=== PATIENT | female | born 1980 | race Caucasian/White ===

== ENCOUNTER 2018-12-15 23:51 | Observation (INO) | payer OTHER ==
[~2018-12-15] VITALS: Ht 162.6 cm; Wt 81.8 kg
[2018-12-16] VITALS (8 sets, daily range): BP systolic 99–126; BP diastolic 59–66
[2018-12-16] MEDS ORDERED: IBUP200C25 PO (00:06)
[2018-12-16] MEDS ORDERED: LASI20TA3 PO (00:07)
[2018-12-16] MEDS ORDERED: MORPHINE 4 MG/ML 1ML VIAL/SYRINGE (J2270) IV ONE ×3 (00:15→05:45)
[2018-12-16] MEDS ORDERED: ONDANSETRON 4MG/2ML VIAL (J2405) IV ONE (01:15)
[2018-12-16] MEDS ORDERED: fentaNYL 100 MCG/2 ML INJECTION (J3010) IV ONE ×2 (01:15→02:45)
[2018-12-16] MEDS ORDERED: PERC5TAB12 PO (03:50)
[2018-12-16] MEDS ORDERED: OXYCODONE/APAP 5MG/325MG(BULK FOR ED) 1 TABLET PO ONE (04:00)
[2018-12-16] MEDS ORDERED: PERCOCET 5MG/325MG TAB PO ONE (04:00)
[2018-12-16] MEDS ORDERED: MAALOX 30 ML SUSP *UDC PO PRN (05:45)
[2018-12-16] MEDS ORDERED: ACETAMINOPHEN TAB 650MG DOSE (2X325MG) PO PRN (05:45)
[2018-12-16] MEDS ORDERED: MOM 30ML SUSPENSION UDC PO PRN (05:45)
[2018-12-16] MEDS ORDERED: NS 1,000 ML IV SCH ×2 (06:05→08:25)
[2018-12-16] MEDS ORDERED: ONDANSETRON 4MG/2ML VIAL (J2405) IV PRN ×3 (06:15→11:15)
[2018-12-16] MEDS ORDERED: NALOXONE INJ 0.4 MG/1 ML VIAL (J2310) IV PRN ×2 (06:15→08:30)
[2018-12-16] MEDS ORDERED: diphenhydrAMINE INJ 50MG/ML VIAL (J1200) IV PRN ×2 (06:15→08:30)
[2018-12-16] MEDS ORDERED: NALBUPHINE HCL 10 MG/ML AMP (J2300) IV PRN ×2 (06:15→08:30)
[2018-12-16] MEDS ORDERED: MORPHINE 1MG/ML IN 0.9% NACL 100ML IV BAG IV PRN ×2 (06:15→08:30)
[2018-12-16] MEDS ORDERED: EPIDURAL/PCA KEYS XX PRN ×2 (06:15→08:30)
--- NOTE | 2018-12-16 06:21 | HPEPDOC ---
General Date of Admission Date of Service: Dec 16, 2018 Chief Complaint The patient is a 38-year-old female admitted with a reason for visit of Ankle Injury. Source: Patient Exam Limitations: No limitations Timing/Duration: Day(s) Severity: Severe History of Present Illness Ms. Domingo is a 38 years old woman who presented to Er after fall injury at home. She reports tripping on carpet and twisting her right ankle. Pain is excruciating; it got worse after going to bathroom in the ER. Pt is requiring repeated doses of IV morphine. X-ray showed closed right trimalleolar fracture. Splint was applied in ER; Ortho was consulted; Dr. Dominguez requested hospitalization for pain control. Vitals and mental status are good. Home Medications Scheduled Furosemide (Lasix) 20 Mg Tablet, 20 MG PO DAILY, (Reported) Ibuprofen (Ibuprofen) 200 Mg Capsule, 200 MG PO Q8H, (Reported) Scheduled PRN Oxycodone HCl/Acetaminophen (Percocet 5-325 mg Tablet) 1 Each Tablet, 1-2 TAB PO Q6H PRN for PAIN Allergies Coded Allergies: prednisone (Verified Allergy, Intermediate, hives/flushing, 12/15/18) Past Medical History Medical History Endometriosis Surgical History none Family History Significant Family History: No pertinent family hx Social History * Smoker: current smoker Alcohol: occationally Drugs: denies A-FIB/CHADSVASC A-FIB History Current/History of A-Fib/PAF?: No Review of Systems Constitutional: Denies: Chills, Fever Eyes: Denies: Vision change ENT: Denies: Head Aches, Ear Pain, Dysphagia Skin: Denies: Rash, Lesions Pulmonary: Denies: Dyspnea, Cough, Pleuritic Chest Pain Cardiovascular: Denies: Chest Pain, Palpitations, Orthopnea, Edema Gastrointestinal: Denies: Nausea, Vomiting, Abdominal Pain Genitourinary: Denies: Dysuria, Frequency Hematologic: Denies: Bruising Endocrine: Denies: Polydipsia, Polyphagia Musculoskeletal: Reports: Leg Pain; Denies: Neck Pain, Back Pain Neurological: Denies: Weakness, Numbness, Change in speech, Confusion, Seizures Psych: Reports: Mood Normal; Denies: Anxiety, Depression Physical Examination General Exam: Positive: Alert, Cooperative, No Acute Distress Eye Exam: Positive: PERRLA, Conjunctiva & lids normal ENT Exam: Positive: Atraumatic, Mucous membr. moist/pink Neck Exam: Positive: Supple; Negative: JVD Chest Exam: Positive: Clear to auscultation, Normal air movement Heart Exam: Positive: Rate Normal, Normal S1, Normal S2; Negative: Murmurs Abdomen Exam: Positive: Normal bowel sounds, Soft; Negative: Tenderness Extremity Exam: Positive: Other (toes are warm and pink; wrap on right foot and leg; no swelling above the wrap; sensation intact) Skin Exam: Positive: Nl turgor and temperature; Negative: Rash, Breakdown Neuro Exam: Positive: Normal Speech, Strength at 5/5 X4 ext, Normal Tone Psych Exam: Positive: Mental status NL, Mood NL; Negative: Anxiety Vital Signs Vital Signs Date Time Temp Pulse Resp B/P (MAP) Pulse Ox O2 Delivery O2 Flow Rate FiO2 12/16/18 05:54 89 20 117/72 (87) 96 Nasal Cannula 1.0 12/15/18 23:54 98.2 Laboratory Data Labs 24H Laboratory Tests 2 12/16/18 00:25: POC Beta HCG, Quantitative < 5.0 Assessment/Plan Right Trimalleolar Fracture, Closed - Keep on observation for pain control - 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
[2018-12-16] MEDS ORDERED: CYCLOBENZAPRINE 10 MG TAB PO ONE (06:45)
[2018-12-16] MEDS ORDERED: MIDAZOLAM INJ 2 MG/2 ML VIAL (J2250) As Ordered ONE (10:10)
[2018-12-16] MEDS ORDERED: fentaNYL 100 MCG/2 ML INJECTION (J3010) As Ordered ONE ×2 (10:10→10:39)
[2018-12-16] MEDS ORDERED: dexameTHASONE 4 MG/ML 1ML VIAL (J1100) As Ordered ONE (10:11)
[2018-12-16] MEDS ORDERED: LIDOCAINE 2% INJ 100 MG/5 ML SDV (FOR ANES.) As Ordered ONE (10:11)
[2018-12-16] MEDS ORDERED: ONDANSETRON 4MG/2ML VIAL (J2405) As Ordered ONE (10:11)
[2018-12-16] MEDS ORDERED: PROPOFOL 200 MG/20 ML VIAL As Ordered ONE ×2 (10:11→10:40)
--- NOTE | 2018-12-16 10:57 | REP ---
RIGHT ANKLE, FOUR VIEWS: Four views right ankle performed. There is a comminuted fracture of the distal fibula with some degree of posterior displacement and lateral angulation. There is a fracture of the medial malleolus with fairly significant lateral displacement. The talus is subluxed laterally with respect to the distal tibia. There also appears to be a posterior malleolar fracture. Electronically Signed by Hermann Kulkarni MD 12/16/2018 05:59 P
--- NOTE | 2018-12-16 11:00 | REP ---
RIGHT LOWER LEG AP AND LATERAL: AP and lateral views of her right lower leg performed. There is a comminuted fracture of the distal fibula with posterior displacement and lateral angulation. There is a fracture of the medial malleolus with significant lateral displacement. Ankle mortise is disrupted with subluxation of the talus laterally with respect to the distal end of the tibia. There is a nondisplaced fracture of the posterior malleolus. No fracture is seen more proximally. Electronically Signed by Hermann Kulkarni MD 12/16/2018 05:59 P
[2018-12-16] MEDS ORDERED: LR 1,000 ML IV SCH ×2 (11:15→11:30)
[2018-12-16] MEDS ORDERED: fentaNYL 100 MCG/2 ML INJECTION (J3010) IV PRN (11:15)
[2018-12-16] MEDS ORDERED: oxyCODONE 5MG TAB PO PRN (11:15)
[2018-12-16] MEDS ORDERED: PERCOCET 5MG/325MG TAB PO PRN (11:30)
[2018-12-16] MEDS: HEPARIN SOD (PORCINE) 5000 UNITS/ML VIAL SC SCH ×2 (12:16→20:26)
[2018-12-16] MEDS: PERCOCET 5MG/325MG TAB PO PRN ×3 (13:06→23:59)
--- NOTE | 2018-12-16 13:50 | HPE ---
DATE OF ADMISSION: 12/15/2018 CHIEF COMPLAINT: Right trimalleolar ankle fracture. HISTORY OF PRESENT ILLNESS: This is a 38-year-old female who was seen bed 10 [facility] emergency department (ED). She tripped on her carpet last night, twisted her ankle, sustained a trimalleolar fracture. I asked the physician programs assistant Heiid Mehta to place a splint on, elevate the leg. Post reduction radiographs showed relatively acceptable alignment, although still some lateral talar shaft given the fact that she did not do any molding on the cast around the splint. This patient's pain was under control. 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 No prior injury to the ankle. PAST MEDICAL HISTORY: Nil. MEDICATIONS: - Lasix 20 mg occasionally throughout the week of the summer months for lower leg swelling PAST SURGICAL HISTORY: Gallbladder. Appendectomy. Endometriosis. Gastric sleeve and gastric bypass. 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 She smokes 6-8 cigarettes a day. Does not consume any illicit drugs. Drinks 4-6 alcoholic beverages of vodka every week, especially when they are in camp. PHYSICAL EXAMINATION: Well-appearing 38-year-old female. She is in obvious pain and discomfort. Lower extremity has some moderate swelling and bruising about the ankle. She can wiggle her toes, dorsiflex and plantar flex the foot. Calf is soft. Normal sensation throughout the foot. Pulses are good in dorsalis pedis pulse and tibialis posterior. No pain of the knee or other lower extremity. Radiographs were reviewed of the right lower extremity. This shows the right ankle displaced, a trimalleolar fracture lateral to the talus. Post splinting radiographs appear to be about the same in terms amount of lateral talar shift. ASSESSMENT AND PLAN: This 78-year-old female with a right displaced trimalleolar fracture would benefit from closed reduction with conscious sedation or in the operating room. Unfortunately she has already been admitted, so it is it is not able to be performed in the emergency department. I have consented her for closed reduction and splinting right ankle fracture in the operating room theater with radiographic guidance. I explained pros, cons, risks, benefits of doing this and signed the consent form. I marked the right lower extremity and we will plan to do this today. She may be admitted back on the hospitalist service afterwards. She can be discharged home anytime whenever her pain is controlled, non-weightbearing with crutches and followup in clinic with orders for strict elevation to try and get the swelling down in preparation for open reduction, internal fixation.
--- NOTE | 2018-12-16 14:24 | RO ---
DATE OF PROCEDURE: 12/16/2018 PREOPERATIVE DIAGNOSIS: Right ankle fracture. POSTOPERATIVE DIAGNOSIS: Right ankle fracture. PLANNED PROCEDURE: Right ankle closed reduction and splinting. PROCEDURE PERFORMED: Right ankle closed reduction and splinting. SURGEON: Dr. Dominguez DUST BOX TENDER: Dr. Becerra TYPE OF ANESTHETIC: Sedation. OPERATIVE PREAMBLE: This 38-year-old female twisted her right ankle. She had a right ankle fracture that had lateral talar shift. Unfortunately, she failed closed reduction and splinting in the emergency department. She was already admitted to the hospitalist service, so we had to go ahead and perform a closed reduction in the operating theater. I talked about pros, cons, risks, benefits of going ahead with this and she signed consent form. I marked the right lower extremity. We proceeded to surgery. OPERATIVE REPORT: Patient was brought to operating theater. There placed supine on the operating room table. Intravenous (IV) sedation was induced by the anesthetic team. Hip and knee was both flexed to 90 degrees with holding of the toes by the events assistant. Cast padding was applied to the right lower extremity from the knee down to the toes. Three-sided plaster of Darlene splint was applied. Lateral molding was placed with one palm proximal medial and one palm distal over the fibula. Molding was achieved with intraoperative fluoroscopy taking AP, lateral and mortise to ensure that proper reduction was achieved and that the talus was well seated underneath the distal tibia. Splint was allowed to thoroughly harden and I overwrapped with two 6-inch Zach bandages. Final radiographs were taken and saved onto the radiographic computer system. Patient is transferred off the operating table and taken postanesthetic care unit in stable condition. Plan for the ayala is to elevate the leg, be non-weightbearing with crutches. CPG for crutch teaching. Be readmitted under the hospitalist service for adequate pain control. Be discharged home whenever they are safe to mobilize and the pain is controlled. Followup in the office this week to discuss surgery and to perform a swelling check. This can take 1-2 weeks of the swelling to come down but will likely benefit from open reduction, internal fixation given that it is bimalleolar and unstable.
[2018-12-16] MEDS ORDERED: CYCLOBENZAPRINE 10 MG TAB PO SCH (16:00)
[2018-12-16] MEDS: MORPHINE 4 MG/ML 1ML VIAL/SYRINGE (J2270) IV PRN ×3 (16:12→20:53)
[2018-12-17] VITALS: BP 99/55
[2018-12-17] MEDS: MORPHINE 4 MG/ML 1ML VIAL/SYRINGE (J2270) IV PRN ×5 (02:58→22:10)
[2018-12-17 04:30] VITALS: BP 97/55
[2018-12-17] MEDS: PERCOCET 5MG/325MG TAB PO PRN ×4 (05:50→18:16)
--- NOTE | 2018-12-17 06:56 | REP ---
RIGHT ANKLE, TWO VIEWS: Two views of the right ankle are performed. There is overlying splint. Comminuted fracture of the distal fibula is again noted with posterior displacement. Posterior malleolar fracture is again noted. Medial malleolar fracture with lateral displacement is again noted. There is again lateral subluxation of the talus with respect to the distal tibia. Electronically Signed by Hermann Kulkarni MD 12/17/2018 09:09 A
--- NOTE | 2018-12-17 06:58 | REP ---
C-ARM VIEWS, RIGHT ANKLE, AP and lateral C-ARM views of the right ankle are performed. There is a significant improvement in the alignment of the distal tibial and fibular fractures. Distal tibia is now well aligned with the talus. There is an overlying splint. 17 seconds of fluoroscopy time was utilized. Electronically Signed by Hermann Kulkarni MD 12/17/2018 09:09 A
[2018-12-17] MEDS ORDERED: PERC5TAB12 PO ×2 (07:57→08:08)
[2018-12-17] MEDS ORDERED: ASPI81TA21 PO (07:57)
[2018-12-17 08:00] VITALS: BP 114/69
--- NOTE | 2018-12-17 08:11 | IPN ---
DATE: 12/17/2018 CHIEF COMPLAINT: Postadmission day 1, closed reduction and splinting right ankle fracture. HISTORY OF PRESENT ILLNESS: This 38-year-old female underwent closed reduction and splinting right ankle fracture yesterday. Pain is settling down but she still describes her pain anywhere from 5 to 7 out of 10 with some "jolts" in the ankle. 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 PHYSICAL EXAMINATION: Well-appearing 88-year-old female. She was asleep when I entered the room. She arouses easily. She appears comfortable. Right lower extremity is splinted. Leg is appropriately elevated. She can wiggle her toes, normal sensation of throughout the toes. Toes are warm and well perfused. ASSESSMENT/PLAN: This 38-year-old female will see a physical therapist today to make sure that she is safe for mobilization, especially with stairs as she is nervous to do this at home. She should be fully transitioned to oral medications and be discharged home hopefully later today or tomorrow depending on how physical therapy goes. We will also start low-dose 81 mg by mouth once daily, aspirin for venous thromboembolism (VTE) prophylaxis as she is a young female, has lower extremity injury, is relatively immobile and has a body mass index (BMI) of 31. I have communicated this plan to Alysa our nurse practitioner as well as the patient herself.
[2018-12-17] MEDS: HEPARIN SOD (PORCINE) 5000 UNITS/ML VIAL SC SCH ×2 (08:28→21:22)
--- NOTE | 2018-12-17 10:41 | IPNPDOC ---
Subjective Date Seen The patient was seen on 12/17/18. Subjective Chief Complaint/HPI Pain controlled with oral percocet currently, received IV morphine this morning prior to working with PT. Did fine with use of crutches and navigating stairs. No fever, sob or chills. Objective Physical Examination General Exam: Positive: Alert, Cooperative, Other (resting comfortably in bed w/o any distres ) Eye Exam: Positive: Conjunctiva & lids normal; Negative: Sclera icteric ENT Exam: Positive: Atraumatic, Mucous membr. moist/pink Neck Exam: Positive: Supple; Negative: JVD, thyromegaly Chest Exam: Positive: Clear to auscultation, Normal air movement Heart Exam: Positive: Rate Normal, Normal S1, Normal S2; Negative: Murmurs Abdomen Exam: Positive: Normal bowel sounds, Soft; Negative: Tenderness Extremity Exam: Positive: Other (Right foot cast in place, no skin discoloration) Skin Exam: Negative: Rash, Breakdown Neuro Exam: Positive: Normal Speech, Strength at 5/5 X4 ext, Normal Tone Psych Exam: Positive: Mental status NL, Mood NL; Negative: Anxiety Assessment /Plan Assessment # Traumatic ground-level fall with acute right Trimalleolar ankle fracture - POD # 1 s/p closed reduction of fracture - stable for discharge today, cleared by ortho service - Percocet prn pain, advised not to operate automobile or heavy machinery while taking percocet - ambulate with crutches - Asa 81 mg daily for DVT prophylaxis - Advised not to take more than 3 grams of acetaminophen daily - Advised to take prn motrin 1-2 times a day - f/u with Ortho clinic for outpatient repair of ankle fx when swelling recedes. Plan/VTE VTE Prophylaxis Ordered?: Yes VTE Exclusion Mechanical Proph: N/A:VTE Prophy Ordered VTE Exclusion Pharmacological: N/A:VTE Prophy Ordered Plan Anticipated Discharge: Home VS, I&O, 24H, Fishbone Vital Signs/I&O Vital Signs Date Time Temp Pulse Resp B/P (MAP) Pulse Ox O2 Delivery O2 Flow Rate FiO2 12/17/18 09:55 16 99 12/17/18 08:30 59 Room Air 12/17/18 08:00 97.2 114/69 (84) 12/16/18 09:51 1.0 I&O- Last 24 Hours up to 6 AM 12/17/18 06:00 Intake Total 1275 ml Output Total 100 ml Balance 1175 ml LISA PACHECO MD Dec 17, 2018 10:41
[2018-12-17] MEDS ORDERED: MORPHINE 4 MG/ML 1ML VIAL/SYRINGE (J2270) IV ONE (11:45)
[2018-12-17 12:00] VITALS: BP 108/57
[2018-12-17 16:00] VITALS: BP 109/54
[2018-12-17 20:00] VITALS: BP 108/52
[2018-12-18] VITALS: BP 117/55
[2018-12-18] MEDS: PERCOCET 5MG/325MG TAB PO PRN ×4 (00:14→14:24)
[2018-12-18] MEDS: MORPHINE 4 MG/ML 1ML VIAL/SYRINGE (J2270) IV PRN ×2 (01:42→09:09)
[2018-12-18 04:00] VITALS: BP 108/67
[2018-12-18 08:00] VITALS: BP 118/71
[2018-12-18] MEDS: HEPARIN SOD (PORCINE) 5000 UNITS/ML VIAL SC SCH (09:09)
--- NOTE | 2018-12-18 14:41 | DS.PDOC ---
Discharge Summary General Date of Admission Dec 15, 2018 at 23:52 Date of Discharge 12/18/2018 Attending Physician: GONZALO RIDER MD Discharge Summary PROCEDURES PERFORMED DURING STAY: Closed reduction of the right ankle by Dr. Dominguez on 12/16/2018 ADMITTING DIAGNOSES: 1. Closed right trimalleolar fracture DISCHARGE DIAGNOSES: 1. Closed right trimalleolar fracture COMPLICATIONS/CHIEF COMPLAINT: Closed Right Trimalleolar Fracture. HISTORY OF PRESENT ILLNESS: Right trimalleolar ankle fracture. 38-year-old woman who presented to the ED in severe ankle pain after tripping on her carpet one day before presentation during which she twisted her ankle and was found to have sustained a trimalleolar fracture. HOSPITAL COURSE: She was seen by orthopedics in the ED and had a closed reduction on 12/16/2018 and was admitted to hospitalist for pain management. She tolerated the use of crutches and navigating stairs and was transitioned from IV morphine to percocet Q4H PRN. She was otherwise cleared by orthopedics and is to follow up outpatient during which she will have further imaging and surgery but not at this time given significant swelling. She is now being discharged home with percocet 5-325 q4H PRN for pain with a supply for 5 days until she is reassessed by orthopedics on Monday12/21/2018. DISCHARGE MEDICATIONS: Please see below. ALLERGIES: Please see below. PHYSICAL EXAMINATION ON DISCHARGE: VITAL SIGNS: Please see below. General Exam: Alert, Cooperative, resting comfortably in bed w/o any distress Eye Exam: PERRLA, EOMI, anicteric, no pallor ENT Exam: Atraumatic, MMM Neck Exam: Supple; no JVD or thyromegaly Chest Exam: CTAB, no wheezing or crackles or chest wall tenderness Heart Exam: Rate Normal, Normal S1, Normal S2; no Murmurs Abdomen Exam: Normoactive bowel sounds, soft,, no Tenderness Extremity Exam: Right foot cast in place, no skin discoloration, moving toes, mild swelling, warm Neuro Exam: Normal cranial nerve exam (2-12), Normal Speech, Strength at 5/5 X4 ext, Normal Tone, limping to take weight of casted foot, otherwise steady gait Psych Exam: Mental status NL, Mood NL LABORATORY DATA: Please see below. IMAGIN12/15/2018: Tib/Fib XR RIGHT LOWER LEG AP AND LATERAL: AP and lateral views of her right lower leg performed. There is a comminuted fr acture of the distal fibula with posterior displacement and lateral angulation. There is a fracture of the medial malleolus with significant lateral displacement. Ankle mortise is disrupted with subluxation of the talus laterally with respect to the distal end of the tibia. There is a nondisplaced fracture of the posterior malleolus. No fracture is seen more proximally. 12/15/2018: Right ankle XR RIGHT ANKLE, FOUR VIEWS: Four views right ankle performed. There is a comminuted fracture of the distal fibula with some degree of posterior displacement and lateral angulation. There is a fracture of the medial malleolus with fairly significant lateral displacement. The talus is subluxed laterally with respect to the distal tibia. There also appears to be a posterior malleolar fracture. 12/16/2018: Right ankle XR RIGHT ANKLE, TWO VIEWS: Two views of the right ankle are performed. There is overlying splint. Comminuted fracture of the distal fibula is again noted with posterior displacement. Posterior malleolar fracture is again noted. Medial malleolar fracture with lateral displacement is again noted. There is again lateral subluxation of the talus with respect to the distal tibia. 12/16/2018: Right ankle XR C-ARM VIEWS, RIGHT ANKLE, AP and lateral C-ARM views of the right ankle are performed. There is a significant improvement in the alignment of the distal tibial and fibular fractures. Distal tibia is now well aligned with the talus. There is an overlying splint. 17 seconds of fluoroscopy time was utilized. PROGNOSIS: Good ACTIVITY: As tolerated. Do keep leg raised when resting DIET: As tolerated DISCHARGE PLAN: Home with Orthopedics follow up DISPOSITION: Home DISCHARGE INSTRUCTIONS: 1. Please keep your right foot raised on a pillow or ottoman when not ambulating ITEMS TO FOLLOWUP ON ON OUTPATIENT: 1. Right trimalleolar fracture - has orthopedics follow up DISCHARGE CONDITION: Good TIME SPENT ON DISCHARGE: Greater than 30 minutes. Vital Signs/I&Os Vital Signs Date Time Temp Pulse Resp B/P (MAP) Pulse Ox O2 Delivery O2 Flow Rate FiO2 12/18/18 10:30 18 98 12/18/18 08:00 68 Room Air 12/18/18 08:00 98.1 118/71 (87) 12/16/18 09:51 1.0 I&O- Last 24 Hours up to 6 AM 12/18/18 06:00 Intake Total 640 ml Output Total 150 ml Balance 490 ml Discharge Medications Scheduled Aspirin (Aspir-Low) 81 Mg Tablet.dr, 1 TAB PO DAILY for pain with food Scheduled PRN Furosemide (Lasix) 20 Mg Tablet, 20 MG PO DAILY PRN for EDEMA, (Reported) Ibuprofen (Ibuprofen) 200 Mg Capsule, 400 MG PO Q8H PRN for PAIN, (Reported) Oxycodone HCl/Acetaminophen (Percocet 5-325 mg Tablet) 1 Each Tablet, 1 TAB PO Q4H PRN for PAIN Allergies Coded Allergies: prednisone (Verified Allergy, Intermediate, hives/flushing, 12/15/18) GONZALO RIDER MD Dec 18, 2018 14:41
[2018-12-24] MEDS ORDERED: GABA-1171 PO (10:04)
[2018-12-24] MEDS ORDERED: PROZ20CA11 PO (10:04)
[2018-12-24] MEDS ORDERED: MIRE1IUD IU (10:10)
== END 2018-12-18 14:55 | disposition home or self-care (01) ==
LOC: M ED 23:51 → M ED INP 23:52 → M PED 12-16 11:40
PROVIDERS: ADMIT Internal Medicine; ATTEND Internal Medicine
DX: S82.851A Displaced trimalleolar fracture of right lower leg, initial encounter for closed fracture (principal); W01.0XXA Fall on same level from slipping, tripping and stumbling without subsequent striking against object, initial encounter; Y92.008 Other place in unspecified non-institutional (private) residence as the place of occurrence of the external cause; Y93.9 Activity, unspecified; Y99.9 Unspecified external cause status; F17.210 Nicotine dependence, cigarettes, uncomplicated; Z79.899 Other long term (current) drug therapy; Z88.8 Allergy status to other drugs, medicaments and biological substances; Z98.84 Bariatric surgery status
CPT/HCPCS: 27818; 29515; 73590; 73600; 73610; 84702; 96361; 96372; 96374; 96375; 96376; 97116; 97530; 99285; J1100; J2250; J2270; J2405; J3010

== ENCOUNTER 2018-12-25 13:34 | Day surgery (SDC) | payer OTHER ==
[~2018-12-25] VITALS: Ht 163.8 cm; Wt 84.0 kg
[~2018-12-25 13:34] MED LIST: ASPI81TA21 PO; GABA-1171 PO; IBUP200C25 PO; LASI20TA3 PO; LR 1,000 ML IV ONE; MIRE1IUD IU; PERC5TAB12 PO; PROZ20CA11 PO; ceFAZolin SOD 2 GM in IV 1 EA IV ONE
[2018-12-25] MEDS ORDERED: MIDAZOLAM INJ 2 MG/2 ML VIAL (J2250) As Ordered ONE (13:44)
[2018-12-25] MEDS ORDERED: dexameTHASONE 4 MG/ML 1ML VIAL (J1100) As Ordered ONE (13:44)
[2018-12-25] MEDS ORDERED: ONDANSETRON 4MG/2ML VIAL (J2405) As Ordered ONE (13:44)
[2018-12-25] MEDS ORDERED: fentaNYL 100 MCG/2 ML INJECTION (J3010) As Ordered ONE ×2 (13:44→17:27)
[2018-12-25] MEDS ORDERED: PROPOFOL 200 MG/20 ML VIAL As Ordered ONE (13:47)
[2018-12-25] MEDS ORDERED: ceFAZolin 1GM INJ (J0690 PER 500MG) As Ordered ONE (13:52)
[2018-12-25 14:04] LABS: URINE PREG TEST NEGATIVE (NEGATIVE)
[2018-12-25] MEDS ORDERED: ALBUTEROL SULFATE 2.5 MG/0.5 ML INH NEB SOLN As Ordered ONE (14:09)
[2018-12-25] MEDS ORDERED: LIDOCAINE 2% INJ 100 MG/5 ML SDV (FOR ANES.) As Ordered ONE (14:20)
[2018-12-25] MEDS ORDERED: ALBUTEROL SULFATE 2.5 MG/0.5 ML INH NEB SOLN INH ONE (14:30)
[2018-12-25] MEDS ORDERED: METOCLOPRAMIDE INJ 10MG/2ML VIAL (J2765) As Ordered ONE (14:38)
[2018-12-25] MEDS ORDERED: BUPIVACAINE HCL 0.25% 30 ML VIAL As Ordered ONE (14:48)
[2018-12-25] MEDS ORDERED: fentaNYL 250 MCG/5 ML INJECTION (J3010) As Ordered ONE (15:08)
[2018-12-25] MEDS ORDERED: HYDROmorphone HCL 2 MG/ML 1ML VIAL (J1170) As Ordered ONE (15:25)
[2018-12-25] MEDS ORDERED: KETAMINE HCL 200 MG/20 ML VIAL As Ordered ONE ×2 (15:27→17:35)
[2018-12-25] MEDS ORDERED: LABETALOL HCL 100 MG/20 ML VIAL As Ordered ONE (15:36)
[2018-12-25] MEDS ORDERED: DESFLURANE 240 ML INHALANT As Ordered ONE (15:40)
[2018-12-25] MEDS ORDERED: KETOROLAC 60 MG/2 ML VIAL (J1885) As Ordered ONE (16:53)
[2018-12-25] MEDS: fentaNYL 100 MCG/2 ML INJECTION (J3010) IV PRN ×4 (17:29→17:45)
[2018-12-25] MEDS ORDERED: PERCOCET 5MG/325MG TAB As Ordered ONE ×2 (17:33→18:01)
[2018-12-25] MEDS: PERCOCET 5MG/325MG TAB PO PRN ×3 (17:34→22:03)
[2018-12-25] MEDS ORDERED: LR 1,000 ML IV SCH ×2 (18:00)
[2018-12-25] MEDS ORDERED: ONDANSETRON 4MG/2ML VIAL (J2405) IV PRN ×2 (18:00)
[2018-12-25] MEDS ORDERED: ACETAMINOPHEN TAB 650MG DOSE (2X325MG) PO PRN (18:00)
[2018-12-25] MEDS ORDERED: ONDANSETRON 4 MG TAB (S0181) PO PRN (18:00)
--- NOTE | 2018-12-25 18:33 | RO ---
DATE OF PROCEDURE: 12/25/2018 PREOPERATIVE DIAGNOSIS: Right ankle fracture. POSTOPERATIVE DIAGNOSIS: Right ankle fracture. PROCEDURE: Right ankle open reduction internal fixation. PROCEDURE PERFORMED: Right ankle open reduction internal fixation right ankle with syndesmosis screws. SURGEON: Dr. Dominguez. CUT OUT WORKER: Dr. Scott ANESTHESIA: General. OPERATIVE PREAMBLE: This is a 38-year-old female who tripped on some carpet. She sustained a unstable bimalleolar fracture. We talked about pros and cons, risks and benefits and going ahead with open reduction internal fixation and she wished to proceed. I reiterated these risks in preoperative holding. I marked right lower extremity proceeded surgery. OPERATIVE REPORT: Patient was brought to the operating room theater. Two grams IV Ancef administered. She was placed supine on room table bone foam leg stewart and flash elevator on the right lower extremity with a tourniquet applied. All bony prominences padded. Two grams IV Ancef was administered. General anesthesia was induced. Leg was prepped and draped the usual sterile fashion. Prep solution was allowed to thoroughly dry. Time-out was performed to confirm the site, patient and surgery. Sterile 4 inch Esmarch was used to exsanguinate the leg and inflation of the tourniquet 250 mmHg. Tourniquet was taken down prior to the end of the case. I made a 6-inch incision centered over the distal aspect of lateral fibula. Carried this dissection down through skin and subcutaneous tissue and achieved meticulous hemostasis. I protected the superficial peroneal nerve. Identified the fracture site. There is one small butterfly fragment and then one larger approximately 3 inches long butterfly fragment more proximal to the main fracture, comminuted area. It was at the level of the level of the syndesmosis. This appeared unstable. I keyed each fracture back in individual and then pinned them using small 1.2 mm K-wires. I selected a 9 hole distal fibula locking plate given the comminuted and multiple fracture lines. I secured this proximally to the bone on the lateral surface. I took an intraoperative fluoroscopy AP, mortise to lateral throughout and to confirm my reduction. I inserted all the distal 2.7 mm locking screws. These measured anywhere between 14 and a 16 mm long. I secured the plate proximal along all the screw holes. Reduction appeared anatomic but syndesmosis appeared unstable and with direct visualization I could translate the fibula anteriorly and posteriorly as well as putting instrument directly into the syndesmosis indicating syndesmosis instability. Next I turned my attention to the medial side. I made a three inch incision centered over the malleolus. I carried this dissection down through skin and subcutaneous tissue and achieved meticulous hemostasis. I protected the saphenous vein. Identified the fracture site. Interposed hematoma fracture periosteum. I placed a 2 mm drill hole and proximal aspect of the distal tibia. I used point of reduction forcep. I clamped the fracture anatomically and achieved a good visualization anteriorly, medially and posteriorly at the fracture site. This was keyed in nicely. Took radiographs to confirm anatomic fracture alignment. Passed two guidewires for the cannulated 4.0 mm partially threaded cannulated screws across fracture site trying to stay out of the joint and keep them parallel on both the AP and lateral radiographs. I overdrilled the proximal cortex using the cannulated drill and then inserted two 46 mm long partially threaded cancellous screws over top of the guide pins. Guide pins were removed and the fracture clamp was removed as well. The fracture is stable. Mortise was anatomic. No lateral Mita shaft was noted. I performed a Cotton test as well as external rotation, stress test and the syndesmosis still did appear slightly unstable although not much as initially before the fracture was fixed. I essentially decided to place two 3.5 mm fully-threaded cortical screws cross syndesmosis. The most distal one was abutting the medial malleolus screws and the more proximal syndesmosis screw which was at about 3.5 cm proximal the joint surface was across all for cortices. Final radiographs were taken. Ankle range of motion was checked and was full planes. Wounds were thoroughly agitated, tourniquet taken down prior to the end of the case. Subcutaneous tissues closed with 2-0 Vicryl in an interrupted fashion. Some of the deep fascia was used to cover the distal aspect of the lateral fibular plate. Subcutaneous tissues closed and the skin was closed with vi. 20 mL of 0.25% Marcaine was instilled in and around the incision site as well as anteriorly to perform an ankle block. Skin was cleaned with a wet and dry dressing followed by the application of Adaptic 4 x 8 gauze, ABD dressings and sterile 6-inch cast padding and an below-knee fashion, foot in neutral. 5 x 30 plaster of lior slabs were used to fashion a three sided below splint and overwrapped with 2 sterile 6 inch Zach bandages. Splint was allowed to fully harden in neutral. The patient woke up from general anesthetic, transferred off the operating table and taken postanesthetic care unit in stable condition. All sponge, needle counts were correct. Estimated blood loss 100 mL. The no complications. PLAN: The patient will be nonweightbearing for 6 weeks. She will followup in the office for 3 days. She will be admitted Hospital overnight as the multiple issues with pain control when they first presented to the hospital with the ankle fracture. They may need postoperative block which she unfortunately turned down prior to the case. We will try to give her IV and transition to oral pain medications. Discontinue vi at 2 weeks time and physical therapy to see for crutch teaching.
[2018-12-25] MEDS ORDERED: MORPHINE 4 MG/ML 1ML VIAL/SYRINGE (J2270) As Ordered ONE (18:46)
[2018-12-25] MEDS: MORPHINE 4 MG/ML 1ML VIAL/SYRINGE (J2270) IV PRN ×3 (18:48→23:00)
[2018-12-25 19:45] VITALS: BP 147/84
[2018-12-25 20:00] VITALS: BP 123/76
[2018-12-25 20:30] VITALS: BP 125/75
[2018-12-25 21:30] VITALS: BP 125/75
[2018-12-25 22:30] VITALS: BP 121/73
[2018-12-25 23:30] VITALS: BP 105/66
[2018-12-26] MEDS: MORPHINE 4 MG/ML 1ML VIAL/SYRINGE (J2270) IV PRN ×3 (01:16→05:36)
[2018-12-26 02:00] VITALS: BP 122/70
[2018-12-26] MEDS: PERCOCET 5MG/325MG TAB PO PRN ×3 (02:13→10:41)
[2018-12-26 06:00] VITALS: BP 121/71
[2018-12-26] MEDS ORDERED: PERC5TAB12 PO (06:00)
[2018-12-26] MEDS: ceFAZolin SOD 2 GM in IV 1 EA IV SCH ×2 (06:31→12:08)
--- NOTE | 2018-12-26 08:58 | IPN ---
DATE: 12/26/2018 CHIEF COMPLAINT: Postop day #1 right ankle ORIF (open reduction and internal fixation). HISTORY OF PRESENT ILLNESS: This is a 38-year-old who underwent open reduction internal fixation of right ankle yesterday. She is seen today in the [facility]. Pain is settling down. She has modified the narcotics to oral medications. She feels like the leg was sore and the ankle feels a bit numb. Other than that she is asking about to being discharged home today as she can get picked up at 1 o'clock. No concerns from the nursing staff. PHYSICAL EXAM: Well-appearing 38-year-old female. She is alert and times three. She is already awake this morning. Leg is appropriately elevated. Splint is in situ without strikethrough or bleeding. Her toes are warm and well perfused. She is able wiggle her toes. Normal sensation of the tips of toes. ASSESSMENT AND PLAN: This 38-year-old female who can be discharged home today as long as she is safe on crutches. We will give her a two dose of IV Ancef postoperatively prior to being discharged home. She is non-weightbearing in the right lower extremity with crutches. She should be on aspirin ASA 81 mg by mouth once a day for VT prophylaxis given that she is a young female who smokes. I also suspect she will be little bit slow to ambulate given everything that has occurred so far. I am happy to see her in the office in a couple of days to ensure she is doing fine, otherwise 2 weeks follow up for splint off and staple removal. RICH
--- NOTE | 2018-12-26 10:33 | REP ---
Right ankle series: Limited four views. History: ORIF right ankle. Intraoperative imaging. 2 minutes 4-second fluoroscopy time is reported. Findings: A sequence of four last image hold fluoroscopically obtained spot radiographs of the right ankle document screw plate fixation of the distal fibula and distal tibial fixation screw placement. Electronically Signed by Blaze Reynaga MD 12/26/2018 07:42 A
== END 2018-12-26 14:00 | disposition home or self-care (01) ==
LOC: M SDC 13:34 → M MS5PR 19:25 → M SDC 12-26 14:00
PROVIDERS: ATTEND Orthopaedic Surgery Sports Medicine
DX: S82.841A Displaced bimalleolar fracture of right lower leg, initial encounter for closed fracture (principal); W01.0XXA Fall on same level from slipping, tripping and stumbling without subsequent striking against object, initial encounter; Y92.89 Other specified places as the place of occurrence of the external cause; Y93.9 Activity, unspecified; Y99.9 Unspecified external cause status; J45.909 Unspecified asthma, uncomplicated; F17.210 Nicotine dependence, cigarettes, uncomplicated; Z88.8 Allergy status to other drugs, medicaments and biological substances; Z79.82 Long term (current) use of aspirin; Z79.899 Other long term (current) drug therapy
CPT/HCPCS: 27814; 27829; 76000; 84703; 96374; 96375; 96376; 97116; C1713; J0690; J1170; J1885; J2250; J2270; J2405; J2765; J3010

== ENCOUNTER 2019-03-13 22:48 | Inpatient (IN) | payer OTHER ==
[~2019-03-13] VITALS: Ht 162.6 cm; Wt 81.8 kg
[~2019-03-13 22:48] MED LIST changes: -LR 1,000 ML IV ONE; -ceFAZolin SOD 2 GM in IV 1 EA IV ONE
[2019-03-13] MEDS ORDERED: PAXI10TA12 PO (23:00)
[2019-03-13] MEDS ORDERED: APAP325T4 PO (23:00)
[2019-03-13] MEDS ORDERED: ONDANSETRON 4MG/2ML VIAL (J2405) IV ONE (23:15)
[2019-03-13] MEDS ORDERED: NS 1,000 ML IV ONE (23:15)
[2019-03-13] MEDS ORDERED: PANTOPRAZOLE 40MG INJ (PROTONIX) (C9113) IV ONE (23:15)
[2019-03-13 23:23] LABS: BASO # 0.1 10^3/uL (0.0-0.2); BASO % 0.8 % (0.0-1.0); EOS # 0.1 10^3/uL (0.0-0.5); EOS % 1.1 % (0.0-3.0); HEMATOCRIT 42.8 % (36.0-47.0); HEMOGLOBIN 14.5 g/dl (12.0-15.5); LYMPH # 1.1 10^3/uL (1.5-5.0); LYMPH % 13.6 % (24.0-44.0); MEAN CORPUSCULAR HEMOGLOBIN 35.5 pg (27.0-33.0); MEAN CORPUSCULAR HGB CONC 33.9 g/dl (32.0-36.5); MEAN CORPUSCULAR VOLUME 104.9 fl (80.0-96.0); MONO # 0.6 10^3/uL (0.0-0.8); MONO % 6.7 % (0.0-5.0); NEUTROPHILS # 6.4 10^3/uL (1.5-8.5); NEUTROPHILS % 76.7 % (36.0-66.0); PLATELET COUNT, AUTOMATED 195 10^3/uL (150-450); RED BLOOD COUNT 4.08 10^6/uL (4.00-5.40); WHITE BLOOD COUNT 8.4 10^3/uL (4.0-10.0)
[2019-03-13] MEDS: NS 1,000 ML IV SCH (23:31)
[2019-03-13 23:34] LABS: INR 1.06; PROTHROMBIN TIME 13.5 SECONDS (11.8-14.0)
[2019-03-13 23:49] LABS: ALBUMIN 3.1 GM/DL (3.2-5.2); ALT/SGPT 263 U/L (12-78); AMYLASE 24 U/L (25-115); BILIRUBIN,DIRECT 1.8 MG/DL (0.0-0.2); BILIRUBIN,TOTAL 2.5 MG/DL (0.2-1.0); BLOOD UREA NITROGEN 7 MG/DL (7-18); CALCIUM LEVEL 8.6 MG/DL (8.5-10.1); CARBON DIOXIDE LEVEL 22 MEQ/L (21-32); CHLORIDE LEVEL 102 MEQ/L (98-107); CREATININE FOR GFR 0.53 MG/DL (0.55-1.30); GLOMERULAR FILTRATION RATE > 60.0 (>60); GLUCOSE, FASTING 69 MG/DL (70-100); LIPASE 96 U/L (73-393); POTASSIUM SERUM 3.9 MEQ/L (3.5-5.1); SODIUM LEVEL 140 MEQ/L (136-145); TOTAL PROTEIN 6.5 GM/DL (6.4-8.2)
--- NOTE | 2019-03-14 00:55 | REPVR ---
PROCEDURE INFORMATION: Exam: CT Abdomen And Pelvis Without Contrast Exam date and time: 03/13/2019 11:04 PM Age: 38 years old Clinical indication: Abdominal pain; Generalized; Additional Info: abd pain TECHNIQUE: Imaging protocol: Computed tomography of the abdomen and pelvis without contrast. Radiation optimization: All CT scans at this facility use at least one of these dose optimization techniques: automated exposure control; mA and/or kV adjustment per patient size (includes targeted exams where dose is matched to clinical indication); or iterative reconstruction. COMPARISON: CT ABD PELVIS W/O CONTRAST 12/03/2015 11:32 PM FINDINGS: Liver: Fatty infiltration of the liver. Hepatomegaly. Gallbladder and bile ducts: Status post cholecystectomy. Pancreas: Normal. No ductal dilation. Spleen: Normal. No splenomegaly. Adrenals: Normal. No mass. Kidneys and ureters: Normal. No hydronephrosis. Stomach and bowel: Status post gastric bypass surgery. No abnormal bowel dilatation. No abnormal bowel wall thickening. Negative for colonic diverticulitis. Submucosal fat in the right colon and transverse colon which may be seen in chronic inflammatory bowel disease as well as normal patients. Appendix: The appendix is not seen. However, there is no evidence of appendicitis. Intraperitoneal space: Unremarkable. No free air. No significant fluid collection. Vasculature: Unremarkable. No abdominal aortic aneurysm. Lymph nodes: Unremarkable. No enlarged lymph nodes. Bladder: Unremarkable as visualized. Reproductive: IUD in the uterus. Bones/joints: Unremarkable. No acute fracture. Soft tissues: Unremarkable. IMPRESSION: 1. Fatty infiltration of the liver. New from prior. 2. Hepatomegaly. New from prior. 3. Status post gastric bypass surgery. 4. IUD in place. 5. Additional findings as described. Electronically signed by: Severo Tirado On 03/14/2019 00:54:43 AM
[2019-03-14] MEDS ORDERED: IBUPROFEN 600 MG TAB PO ONE (01:30)
[2019-03-14] MEDS ORDERED: MORPHINE 4 MG/ML 1ML VIAL/SYRINGE (J2270) IV ONE (02:00)
[2019-03-14] MEDS ORDERED: METOCLOPRAMIDE INJ 10MG/2ML VIAL (J2765) IV ONE (02:00)
[2019-03-14] MEDS ORDERED: IBUP-1764 PO (02:13)
[2019-03-14] MEDS ORDERED: MIRE1IUD IU (02:13)
[2019-03-14] MEDS ORDERED: ACET-907 PO (02:13)
[2019-03-14] MEDS ORDERED: PARO5TAB PO (02:14)
[2019-03-14] MEDS ORDERED: ONDANSETRON 4MG/2ML VIAL (J2405) IV PRN ×2 (02:45→11:45)
[2019-03-14] MEDS ORDERED: LORazepam 2 MG TAB PO PRN (02:45)
[2019-03-14 02:54] LABS: ACETAMINOPHEN LEVEL < 2.0 UG/ML (10.0-30.0)
--- NOTE | 2019-03-14 02:59 | HPEPDOC ---
General Date of Admission 03/14/19 Date of Service: Mar 14, 2019 Chief Complaint The patient is a 38-year-old female admitted with a reason for visit of Abd Pain/Vomiting. Source: Patient Exam Limitations: No limitations Timing/Duration: Week(s) Associated Symptoms: Vomiting History of Present Illness Patient is 38 years old female with past medical history of gastric bypass and EtOH abuse presented hospital with intractable vomiting. Patient states that for past few weeks she developed multiple episodes of vomiting associated with diarrhea and loss of appetite. Patient stated that she has been trying to cut down her alcohol consumption but on the she had alcohol withdrawal. She continues to drink almost daily. Also she stated that in November she had an ankle fracture, and after that she took Tylenol 325 mg 3 every 6 hours daily. In emergency room patient was found to have abnormal liver function test with transaminitis and hyperbilirubinemia. CT scan was done and showed: Fatty infiltration of the liver. New from prior. Hepatomegaly. New from prior. IV acetylcysteine started Home Medications Scheduled Levonorgestrel (Mirena) 1 Each Iud, 20 MCG IU ASDIRECTED, (Reported) IMPLANTED February Paroxetine (Paroxetine HCl) 10 Mg Tablet, 10 MG PO QHS, (Reported) Scheduled PRN Acetaminophen (Tylenol) 325 Mg Tablet, 975 MG PO Q6H PRN for PAIN, (Reported) Ibuprofen (Ibuprofen) 200 Mg Tablet, 800 MG PO Q6H PRN for PAIN, (Reported) Allergies Coded Allergies: prednisone (Verified Allergy, Intermediate, hives/flushing, 03/13/19) Past Medical History Medical History Morbid obesity, EtOH abuse Surgical History Gastric bypass surgery Family History Father had a stroke Social History * Smoker: current smoker Alcohol: heavy Drugs: denies A-FIB/CHADSVASC A-FIB History Current/History of A-Fib/PAF?: No Current PO Anticoag Therapy: No Review of Systems Constitutional: Reports: Weakness Eyes: Denies: Pain ENT: Denies: Head Aches Skin: Reports: Jaundice; Denies: Rash Pulmonary: Denies: Dyspnea Cardiovascular: Denies: Chest Pain Gastrointestinal: Reports: Nausea, Vomiting Genitourinary: Denies: Dysuria Hematologic: Denies: Bruising Endocrine: Denies: Polydipsia, Polyphagia Musculoskeletal: Denies: Neck Pain, Back Pain Neurological: Denies: Numbness Psych: Reports: Mood Normal Physical Examination General Exam: Positive: Alert, Cooperative Eye Exam: Positive: PERRLA, Conjunctiva & lids normal ENT Exam: Positive: Atraumatic Neck Exam: Positive: Supple; Negative: JVD Chest Exam: Positive: Clear to auscultation Heart Exam: Positive: Rate Normal Telemetry: Positive: No significant arrhythmia Abdomen Exam: Positive: BS Hypoactive, Soft, Hepatospenomegaly (hepatomegaly) Extremity Exam: Negative: Clubbing Skin Exam: Positive: Nl turgor and temperature Neuro Exam: Positive: Cranial Nerves 3-12 NL Psych Exam: Positive: Mental status NL Vital Signs Vital Signs Date Time Temp Pulse Resp B/P (MAP) Pulse Ox O2 Delivery O2 Flow Rate FiO2 03/14/19 00:30 100 17 171/89 (116) 98 03/13/19 23:01 98.3 Room Air Laboratory Data Labs 24H Laboratory Tests 2 03/13/19 23:18: Immature Granulocyte % (Auto) 1.1, Neutrophils (%) (Auto) 76.7H, Lymphocytes (%) (Auto) 13.6L, Monocytes (%) (Auto) 6.7H, Eosinophils (%) (Auto) 1.1, Basophils (%) (Auto) 0.8, Neutrophils # (Auto) 6.4, Lymphocytes # (Auto) 1.1L, Monocytes # (Auto) 0.6, Eosinophils # (Auto) 0.1, Basophils # (Auto) 0.1, Nucleated Red Blood Cells % (auto) 0.0, Prothrombin Time 13.5, Prothromb Time International Ratio 1.06, Urine Color JAKOB, Urine Appearance HAZY, Urine pH 5.0, Urine Spe cific Irene 1.023, Urine Protein NEGATIVE, Urine Glucose (UA) NEGATIVE, Urine Ketones 1+H, Urine Blood NEGATIVE, Urine Nitrite NEGATIVE, Urine Bilirubin 2+H, Urine Urobilinogen 4.0H, Urine Leukocyte Esterase 1+H, Urine WBC (Auto) 8H, Urine RBC (Auto) 3, Urine Hyaline Casts (Auto) 0, Urine Bacteria (Auto) NEGATIVE, Urine Squamous Epithelial Cells 4, Urine Mucus (Auto) SMALL, Urine Sperm (Auto) , Anion Gap 16, Glomerular Filtration Rate > 60.0, Calcium Level 8.6, Total Bilirubin 2.5H, Direct Bilirubin 1.8H, Aspartate Amino Transf (AST/SGOT) 562H, Alanine Aminotransferase (ALT/SGPT) 263H, Alkaline Phosphatase 207H, Total Protein 6.5, Albumin 3.1L, Albumin/Globulin Ratio 0.91L, Amylase Level 24L, Lipase 96 CBC/BMP Laboratory Tests 03/13/19 23:18 Microbiology Microbiology 03/13/19 Urine Culture, Received Pending Assessment/Plan Patient is 38 years old female with past medical history of gastric bypass and EtOH abuse presented hospital with intractable vomiting. Patient states that for past few weeks she developed multiple episodes of vomiting associated with diarrhea and loss of appetite. Patient stated that she has been trying to cut down her alcohol consumption but on the she had alcohol withdrawal. She continues to drink almost daily. Also she stated that in November she had an ankle fracture, and after that she took Tylenol 325 mg 3 every 6 hours daily. Problems (1) Tylenol toxicity Status: Acute Problem Text: Most likely patient developed Tylenol toxicity in top of alcoholic hepatitis We'll check acetaminophen level, however people who chronically taking alcohol can develop acetaminophen hepatotoxicity even when taking therapeutic doses of acetaminophen NAC IV started Continue to monitor PT/INR, liver function test (2) Alcoholic hepatitis Status: Acute Problem Text: Patient has a long history of alcoholism with alcohol withdrawal She developed jaundice, hepatomegaly, transaminitis, hyperbilirubinemia MDF score 0.2 indicates good prognosis. However, daily Tylenol consumption with alcohol is very worrisome in terms of p rognosis (3) Intractable vomiting Status: Acute Problem Text: Zofran IV when necessary (4) ETOH abuse Status: Acute Problem Text: CIWA Plan / VTE VTE Prophylaxis Ordered?: Yes JACEK HENRY DO Mar 14, 2019 02:59
[2019-03-14] MEDS ORDERED: ACETYLCYSTEINE IV ONE ×2 (03:00→04:30)
[2019-03-14] MEDS ORDERED: D5W IV ONE ×2 (03:00→04:30)
[2019-03-14] MEDS: THIAMINE 100 MG TAB PO SCH ×2 (04:51→19:45)
[2019-03-14] MEDS ORDERED: PARO20TA3 PO (06:11)
[2019-03-14] MEDS ORDERED: ACETYLCYSTEINE 8,200 MG in D5W 1,000 ML IV ONE (08:30)
[2019-03-14 09:08] LABS: ETHYL ALCOHOL (ETHANOL) < 0.003 % (0.000-0.010)
[2019-03-14] MEDS: HEPARIN SOD (PORCINE) 5000 UNITS/ML VIAL SC SCH ×2 (09:28→21:00)
[2019-03-14] MEDS: FOLIC ACID 1 MG TAB PO SCH (09:28)
[2019-03-14] MEDS: MULTIVITAMINS/MINERALS THERAP 1 TAB PO SCH (09:28)
[2019-03-14] MEDS ORDERED: NS 500 ML IV ONE (09:30)
[2019-03-14] MEDS: NS 1,000 ML IV SCH ×2 (10:12→17:00)
[2019-03-14] MEDS ORDERED: KETOROLAC 30 MG/ML VIAL (J1885) IV ONE (11:45)
[2019-03-14] MEDS: MORPHINE 2 MG/ML 1ML VIAL (J2270) IV PRN ×2 (12:18→16:26)
--- NOTE | 2019-03-14 13:30 | IPNPDOC ---
Subjective Date Seen The patient was seen on 03/14/19. Subjective Chief Complaint/HPI complains of abdominal pain after having a regular breakfast. She wanted to leave AMA this am but then she started having the abdominal pain so stayed. She also complained of headache. Objective Physical Examination General Exam: Positive: Alert, Cooperative Eye Exam: Positive: PERRLA, Conjunctiva & lids normal ENT Exam: Positive: Atraumatic Neck Exam: Positive: Supple; Negative: JVD Chest Exam: Positive: Clear to auscultation, Normal air movement Heart Exam: Positive: Tachycardic, Regular Rhythm, Normal S1, Normal S2; Negative: Murmurs, Rubs Telemetry: Positive: No significant arrhythmia, Sinus, Tachycardia Abdomen Exam: Positive: BS Hypoactive, Soft, Hepatospenomegaly (hepatomegaly), Other (No guarding or rigidity) Extremity Exam: Negative: Clubbing Skin Exam: Positive: Nl turgor and temperature Neuro Exam: Positive: Cranial Nerves 3-12 NL Psych Exam: Positive: Mental status NL Assessment /Plan Assessment Patient is 38 years old female with past medical history of morbid obesity s/p gastric bypass and EtOH abuse presented hospital with intractable vomiting. Patient states that for past few weeks she developed multiple episodes of vomiting associated with diarrhea and loss of appetite. Patient stated that she has been trying to cut down her alcohol consumption but on the she had alcohol withdrawal. She continues to drink almost daily. Also she stated that in November she had an ankle fracture, and after that she took Tylenol 325 mg 3 every 6 hours daily and continues to take tylenol off and on. She did consume a lot of tylenol from November till the first week of February. Transaminitis possible alcoholic hepatitis/ tylenol toxicity/viral hepatitis tylenol level was not elevated. but will complete the NAC No CBD pathology or CBD or hepatic duct dilatation noted in CT abdomen, patient is s/p cholecystectomy at the age of 20 years. Alcoholic Abuse will monitor for withdrawal. [facility] protocol thiamine and folate. Abdominal pain with Intractable vomiting acute gastritis/ hepatitis will give pantoprazole and zofran. pain control with toradol and morphine prn. full liquid diet. H/o morbid obesity s/p gastric bypass in 2016 Recent left ankle fracture in nov 2018 Plan/VTE VTE Prophylaxis Ordered?: Yes VS, I&O, 24H, Fishbone Vital Signs/I&O Vital Signs Date Time Temp Pulse Resp B/P (MAP) Pulse Ox O2 Delivery O2 Flow Rate FiO2 03/14/19 13:04 18 03/14/19 12:23 93 153/91 (111) 99 Room Air 03/13/19 23:01 98.3 Laboratory Data 24H LABS Laboratory Tests 2 03/13/19 23:18: Immature Granulocyte % (Auto) 1.1, Neutrophils (%) (Auto) 76.7H, Lymphocytes (%) (Auto) 13.6L, Monocytes (%) (Auto) 6.7H, Eosinophils (%) (Auto) 1.1, Basophils (%) (Auto) 0.8, Neutrophils # (Auto) 6.4, Lymphocytes # (Auto) 1.1L, Monocytes # (Auto) 0.6, Eosinophils # (Auto) 0.1, Basophils # (Auto) 0.1, Nucleated Red Blood Cells % (auto) 0.0, Prothrombin Time 13.5, Prothromb Time International Ratio 1.06, Urine Color JAKOB, Urine Appearance HAZY, Urine pH 5.0, Urine Specific [place] 1.023, Urine Protein NEGATIVE, Urine Glucose (UA) NEGATIVE, Urine Ketones 1+H, Urine Blood NEGATIVE, Urine Nitrite NEGATIVE, Urine Bilirubin 2+H, Urine Urobilinogen 4.0H, Urine Leukocyte Esterase 1+H, Urine WBC (Auto) 8H, Urine RBC (Auto) 3, Urine Hyaline Casts (Auto) 0, Urine Bacteria (Auto) NEGATIVE, Urine Squamous Epithelial Cells 4, Urine Mucus (Auto) SMALL, Urine Sperm (Auto) , Anion Gap 16, Glomerular Filtration Rate > 60.0, Calcium Level 8.6, Total Bilirubin 2.5H, Direct Bilirubin 1.8H, Aspartate Amino Transf (AST /SGOT) 562H, Alanine Aminotransferase (ALT/SGPT) 263H, Alkaline Phosphatase 207H, Total Protein 6.5, Albumin 3.1L, Albumin/Globulin Ratio 0.91L, Amylase Level 24L, Lipase 96, Acetaminophen Level < 2.0L 03/14/19 08:32: Ethyl Alcohol Level < 0.003 CBC/BMP Laboratory Tests 03/13/19 23:18 Microbiology Microbiology 03/13/19 Urine Culture, Received Pending SYBIL DYE MD Mar 14, 2019 13:30
[2019-03-14 14:09] VITALS: BP 131/85
[2019-03-14] MEDS ORDERED: diphenhydrAMINE INJ 50MG/ML VIAL (J1200) IV ONE ×2 (14:30→19:45)
[2019-03-14 15:00] VITALS: BP 130/85
[2019-03-14] MEDS: KETOROLAC 30 MG/ML VIAL (J1885) IV PRN (19:46)
[2019-03-14 20:00] VITALS: BP 123/70
[2019-03-14 22:00] VITALS: BP_SYST 111; BP_DIAS 60; BP_DIAS 65
[2019-03-14] MEDS ORDERED: PANTOPRAZOLE 40MG INJ (PROTONIX) (C9113) IV SCH (23:00)
[2019-03-15] MEDS: KETOROLAC 30 MG/ML VIAL (J1885) IV PRN (04:59)
[2019-03-15] MEDS: NS 1,000 ML IV SCH (04:59)
[2019-03-15 06:00] VITALS: BP 111/65
[2019-03-15 07:00] LABS: BASO % 0.9 % (0.0-1.0); EOS # 0.1 10^3/uL (0.0-0.5); EOS % 2.3 % (0.0-3.0); HEMATOCRIT 38.1 % (36.0-47.0); HEMOGLOBIN 12.7 g/dl (12.0-15.5); LYMPH # 0.8 10^3/uL (1.5-5.0); LYMPH % 22.3 % (24.0-44.0); MEAN CORPUSCULAR HEMOGLOBIN 35.7 pg (27.0-33.0); MEAN CORPUSCULAR HGB CONC 33.3 g/dl (32.0-36.5); MONO # 0.2 10^3/uL (0.0-0.8); MONO % 6.3 % (0.0-5.0); NEUTROPHILS # 2.4 10^3/uL (1.5-8.5); NEUTROPHILS % 67.3 % (36.0-66.0); PLATELET COUNT, AUTOMATED 130 10^3/uL (150-450); RED BLOOD COUNT 3.56 10^6/uL (4.00-5.40); WHITE BLOOD COUNT 3.5 10^3/uL (4.0-10.0)
[2019-03-15 07:11] LABS: INR 1.16; PROTHROMBIN TIME 14.5 SECONDS (11.8-14.0)
[2019-03-15 07:23] LABS: ALBUMIN 2.5 GM/DL (3.2-5.2); ALT/SGPT 179 U/L (12-78); BILIRUBIN,TOTAL 2.3 MG/DL (0.2-1.0); BLOOD UREA NITROGEN 8 MG/DL (7-18); CALCIUM LEVEL 8.3 MG/DL (8.5-10.1); CARBON DIOXIDE LEVEL 26 MEQ/L (21-32); CHLORIDE LEVEL 105 MEQ/L (98-107); CREATININE FOR GFR 0.54 MG/DL (0.55-1.30); GLOMERULAR FILTRATION RATE > 60.0 (>60); GLUCOSE, FASTING 95 MG/DL (70-100); MAGNESIUM LEVEL 1.7 MG/DL (1.8-2.4); POTASSIUM SERUM 3.3 MEQ/L (3.5-5.1); SODIUM LEVEL 139 MEQ/L (136-145); TOTAL PROTEIN 5.5 GM/DL (6.4-8.2)
[2019-03-15] MEDS ORDERED: POTASSIUM CHLORIDE 10 MEQ SR TABLET PO ONE (08:00)
[2019-03-15] MEDS ORDERED: MAG SULF 1GM/100ML (MAG RUN) 1 GM in IV 1 EA IV ONE (08:00)
[2019-03-15] MEDS: THIAMINE 100 MG TAB PO SCH (08:31)
[2019-03-15] MEDS: HEPARIN SOD (PORCINE) 5000 UNITS/ML VIAL SC SCH (08:31)
[2019-03-15] MEDS: FOLIC ACID 1 MG TAB PO SCH (08:31)
[2019-03-15] MEDS: MULTIVITAMINS/MINERALS THERAP 1 TAB PO SCH (08:31)
[2019-03-15] MEDS ORDERED: FOLI1TAB11 PO (08:53)
[2019-03-15] MEDS ORDERED: PANT40TA3 PO (08:53)
[2019-03-15] MEDS ORDERED: THIA100TA PO (08:53)
[2019-03-15 10:00] VITALS: BP 111/60
[2019-03-15 11:21] LABS: HEPATITIS B SURFACE ANTIGEN NEGATIVE (NEGATIVE)
[2019-03-15 11:48] LABS: HEPATITIS C VIRUS ABY INDEX 0.2 INDEX (<0.8)
[2019-03-15 11:49] LABS: HEPATITIS B CORE ANTIBODY IGM NEGATIVE (NEGATIVE)
--- NOTE | 2019-03-15 11:49 | DS.PDOC ---
Discharge Summary General Date of Admission Mar 14, 2019 at 02:26 Date of Discharge 03/15/19 Discharge Summary PROCEDURES PERFORMED DURING STAY: [None]. DISCHARGE DIAGNOSES: Alcoholic hepatitis Vs Viral hepatitis. H/o Morbid obesity s/p gastric bypass in 2017 Alcohol abuse COMPLICATIONS/CHIEF COMPLAINT: Intractable Vomiting. HISTORY OF PRESENT ILLNESS: See history and physical HOSPITAL COURSE: Patient is 38 years old female with past medical history of morbid obesity s/p gastric bypass and EtOH abuse presented hospital with intractable vomiting. Patient states that for past few weeks she developed multiple episodes of vomiting associated with diarrhea and loss of appetite. Patient stated that she has been trying to cut down her alcohol consumption but on the she had alcohol withdrawal. She continues to drink almost daily. Also she stated that in November she had an ankle fracture, and after that she took Tylenol 325 mg 3 every 6 hours daily and continues to take tylenol off and on. She did consume a lot of tylenol from November till the first week of February. Transaminitis possible alcoholic hepatitis/ tylenol toxicity/viral hepatitis tylenol level was not elevated. but did get NAC No CBD pathology or CBD or hepatic duct dilatation noted in CT abdomen, patient is s/p cholecystectomy at the age of 20 years. Viral serology pending Alcoholic Abuse no withdrawal thiamine and folate. Abdominal pain with Intractable vomiting improved acute gastritis/ hepatitis will give pantoprazole H/o morbid obesity s/p gastric bypass in 2016 Recent left ankle fracture in nov 2018 DISCHARGE MEDICATIONS: Please see below. ALLERGIES: Please see below. PHYSICAL EXAMINATION ON DISCHARGE: VITAL SIGNS: Please see below. General Exam: Positive: Alert, Cooperative Eye Exam: Positive: PERRLA, Conjunctiva & lids normal ENT Exam: Positive: Atraumatic Neck Exam: Positive: Supple; Negative: JVD Chest Exam: Positive: Clear to auscultation, Normal air movement Heart Exam: Positive: Tachycardic, Regular Rhythm, Normal S1, Normal S2; Negative: Murmurs, Rubs Telemetry: Positive: No significant arrhythmia, Sinus, Tachycardia Abdomen Exam: Positive: BS Hypoactive, Soft, Hepatospenomegaly (hepatomegaly), Other (No guarding or rigidity) Extremity Exam: Negative: Clubbing Skin Exam: Positive: Nl turgor and temperature Neuro Exam: Positive: Cranial Nerves 3-12 NL Psych Exam: Positive: Mental status NL LABORATORY DATA: Please see below. ACTIVITY: [As tolerated]. DIET: Low low cholesterol DISPOSITION: 01 Home, Self-Care. DISCHARGE INSTRUCTIONS: Follow up PMD in 1 week ITEMS TO FOLLOWUP ON ON OUTPATIENT: Liver profile DISCHARGE CONDITION: [Stable]. TIME SPENT ON DISCHARGE: 35 minutes. Vital Signs/I&Os Vital Signs Date Time Temp Pulse Resp B/P (MAP) Pulse Ox O2 Delivery O2 Flow Rate FiO2 03/15/19 10:00 106 111/60 03/15/19 06:00 97.9 15 99 Room Air I&O- Last 24 Hours up to 6 AM 03/15/19 06:00 Intake Total 2713 ml Balance 2713 ml Laboratory Data Labs 24H Laboratory Tests 2 03/15/19 06:40: Immature Granulocyte % (Auto) 0.9, Neutrophils (%) (Auto) 67.3H, Lymphocytes (%) (Auto) 22.3L, Monocytes (%) (Auto) 6.3H, Eosinophils (%) (Auto) 2.3, Basophils (%) (Auto) 0.9, Neutrophils # (Auto) 2.4, Lymphocytes # (Auto) 0.8L, Monocytes # (Auto) 0.2, Eosinophils # (Auto) 0.1, Basophils # (Auto) 0.0, Nucleated Red Blood Cells % (auto) 0.0, Prothrombin Time 14.5H, Prothromb Time International Ratio 1.16, Anion Gap 8, Glomerular Filtration Rate > 60.0, Calcium Level 8.3L, Magnesium Level 1.7L, Total Bilirubin 2.3H, Aspartate Amino Transf (AST/SGOT) 278H, Alanine Aminotransferase (ALT/SGPT) 179H, Alkaline Phosphatase 183H, Total Protein 5.5L, Albumin 2.5L, Albumin/Globulin Ratio 0.83L CBC/BMP Laboratory Tests 03/15/19 06:40 Microbiology Microbiology 03/13/19 Urine Culture - Final, Complete Discharge Medications Scheduled Folic Acid (Folic Acid) 1 Mg Tablet, 1 MG PO DAILY Levonorgestrel (Mirena) 1 Each Iud, 20 MCG IU ASDIRECTED, (Reported) IMPLANTED February Pantoprazole Sodium (Pantoprazole Sodium) 40 Mg Tablet.dr, 40 MG PO DAILY Paroxetine HCl (Paroxetine HCl) 20 Mg Tablet, 20 MG PO QHS, (Reported) Thiamine Hcl (Vitamin B-1) 100 Mg Tablet, 100 MG PO DAILY Scheduled PRN Ibuprofen (Ibuprofen) 200 Mg Tablet, 800 MG PO Q6H PRN for PAIN, (Reported) Allergies Coded Allergies: prednisone (Verified Allergy, Intermediate, hives/flushing, 03/13/19) SYBIL DYE MD Mar 15, 2019 11:49
[2019-03-15 11:51] LABS: HEPATITIS A ANTIBODY IGM NEGATIVE (NEGATIVE)
== END 2019-03-15 11:10 | disposition home or self-care (01) | DRG 280 ==
LOC: M ED 22:48 → M ED INP 03-14 02:26 → M MS5PR 03-14 13:45
PROVIDERS: ADMIT Internal Medicine; ATTEND Internal Medicine Nephrology
DX: K70.10 Alcoholic hepatitis without ascites (principal); B17.8 Other specified acute viral hepatitis; F10.188 Alcohol abuse with other alcohol-induced disorder; R11.2 Nausea with vomiting, unspecified; T39.1X5A Adverse effect of 4-Aminophenol derivatives, initial encounter; F17.200 Nicotine dependence, unspecified, uncomplicated; Z98.84 Bariatric surgery status; Z79.899 Other long term (current) drug therapy; Z88.8 Allergy status to other drugs, medicaments and biological substances

== ENCOUNTER 2019-09-21 17:01 | Emergency (ER) | payer OTHER ==
[~2019-09-21] VITALS: Ht 162.6 cm; Wt 77.3 kg
[~2019-09-21 17:01] MED LIST changes: +ACET-907 PO; +APAP325T4 PO; +FOLI1TAB11 PO; +IBUP-1764 PO; +PANT40TA3 PO; +PARO20TA3 PO; +PARO5TAB PO; +PAXI10TA12 PO; +THIA100TA PO
[2019-09-21] MEDS ORDERED: CLON-412 (17:16)
[2019-09-21] MEDS ORDERED: FURO20TA2 PO (17:16)
[2019-09-21] MEDS ORDERED: PANTOPRAZOLE 40MG VIAL (C9113 PER 1) IV ONE (17:30)
[2019-09-21] MEDS ORDERED: NS 1,000 ML IV ONE (17:30)
[2019-09-21] MEDS ORDERED: ONDANSETRON 4MG/2ML VIAL IV ONE (17:30)
--- NOTE | 2019-09-21 17:47 | REPVR ---
PROCEDURE INFORMATION: Exam: CT Abdomen And Pelvis Without Contrast Exam date and time: 09/21/2019 5:26 PM Age: 38 years old Clinical indication: Abdominal pain; Additional info: Abd pain (pt said left sided pain) TECHNIQUE: Imaging protocol: Computed tomography of the abdomen and pelvis without contrast. Radiation optimization: All CT scans at this facility use at least one of these dose optimization techniques: automated exposure control; mA and/or kV adjustment per patient size (includes targeted exams where dose is matched to clinical indication); or iterative reconstruction. COMPARISON: CT ABD PELVIS W/O CONTRAST 03/14/2019 12:04 AM FINDINGS: Liver: There is a diffuse decrease in hepatic parenchymal density, consistent with steatosis. Hepatomegaly. Mild lobularity of the anterior contour of the liver may suggest early cirrhotic morphology in the appropriate clinical setting. Gallbladder and bile ducts: There has been a cholecystectomy. Pancreas: Normal. No ductal dilation. Spleen: There is mild to moderate splenomegaly with a maximum span of 16 centimeters. No focal abnormalities demonstrated. Adrenals: Normal. No mass. Kidneys and ureters: Normal. No hydronephrosis. Stomach and bowel: This patient is status post gastric bypass surgery. Appendix: No evidence of appendicitis. Intraperitoneal space: There is a small amount of free intraperitoneal fluid present. Vasculature: Unremarkable. No abdominal aortic aneurysm. Lymph nodes: Unremarkable. No enlarged lymph nodes. Bladder: Unremarkable as visualized. Reproductive: IUD located centrally within the uterus. Bones/joints: Unremarkable. No acute fracture. Soft tissues: There is soft tissue edema demonstrated in the abdominal wall, flanks and buttock regions consistent with anasarca. There is a small umbilical hernia. Also noted is a small supraumbilical hernia. There is no evidence of incarceration. IMPRESSION: 1. There is a diffuse decrease in hepatic parenchymal density, consistent with steatosis. Hepatomegaly. Mild lobularity of the anterior contour of the liver may suggest early cirrhotic morphology in the appropriate clinical setting. 2. There is mild to moderate splenomegaly with a maximum span of 16 centimeters. No focal abnormalities demonstrated. 3. There has been a cholecystectomy. 4. There is a small amount of free intraperitoneal fluid present. 5. This patient is status post gastric bypass surgery. 6. Anasarca. Electronically signed by: Govind Hoffman On 09/21/2019 17:47:29 PM
[2019-09-21] MEDS: MORPHINE 4 MG/ML 1ML VIAL/SYRINGE (J2270) IV PRN ×2 (17:52→18:34)
[2019-09-21 17:56] LABS: BASO # 0.1 10^3/uL (0.0-0.2); BASO % 0.6 % (0.0-1.0); EOS # 0.1 10^3/uL (0.0-0.5); EOS % 0.7 % (0.0-3.0); HEMATOCRIT 32.4 % (36.0-47.0); LYMPH # 1.2 10^3/uL (1.5-5.0); LYMPH % 13.2 % (24.0-44.0); MEAN CORPUSCULAR HEMOGLOBIN 36.8 pg (27.0-33.0); MEAN CORPUSCULAR VOLUME 108.4 fl (80.0-96.0); MONO # 0.9 10^3/uL (0.0-0.8); NEUTROPHILS # 6.8 10^3/uL (1.5-8.5); NEUTROPHILS % 74.8 % (36.0-66.0); RED BLOOD COUNT 2.99 10^6/uL (4.00-5.40)
[2019-09-21 17:57] LABS: PLATELET COUNT, AUTOMATED 113 10^3/uL (150-450)
[2019-09-21 18:05] LABS: INR 1.46; PROTHROMBIN TIME 17.5 SECONDS (11.8-14.0)
[2019-09-21 18:30] LABS: ALT/SGPT 35 U/L (12-78); BILIRUBIN,DIRECT 3.5 MG/DL (0.0-0.2); BILIRUBIN,TOTAL 5.1 MG/DL (0.2-1.0); BLOOD UREA NITROGEN 5 MG/DL (7-18); CALCIUM LEVEL 7.7 MG/DL (8.5-10.1); CARBON DIOXIDE LEVEL 28 MEQ/L (21-32); CHLORIDE LEVEL 100 MEQ/L (98-107); CK-MB VALUE MASS < 1.0 NG/ML (<3.6); CPK CREATINE PHOSPHOKINASE 53 U/L (26-192); CREATININE FOR GFR 0.47 MG/DL (0.55-1.30); ETHYL ALCOHOL (ETHANOL) < 0.003 % (0.000-0.010); GLOMERULAR FILTRATION RATE > 60.0 (>60); GLUCOSE, FASTING 114 MG/DL (70-100); LIPASE 122 U/L (73-393); MB/CK RELATIVE INDEX 1.89 (< OR =4); POTASSIUM SERUM 3.1 MEQ/L (3.5-5.1); SODIUM LEVEL 137 MEQ/L (136-145); TOTAL PROTEIN 6.1 GM/DL (6.4-8.2); TROPONIN I < 0.02 NG/ML (< 0.10)
[2019-09-21] MEDS ORDERED: POTASSIUM CHLORIDE 10 MEQ SR TABLET PO ONE (18:45)
[2019-09-21] MEDS ORDERED: KCL 10MEQ/100ML SWI (KRUN) 10 MEQ in IV 1 EA IV ONE (18:45)
[2019-09-21] MEDS ORDERED: NORC1TAB7 PO (19:09)
[2019-09-21] MEDS ORDERED: ZOFR4TAB16 PO (19:09)
[2019-09-21] MEDS ORDERED: POTA20TA6 PO (19:09)
[2019-09-21 20:32] LABS: AMPHETAMINES LEVEL URINE NEGATIVE (NEGATIVE); BARBITURATES URINE NEGATIVE (NEGATIVE); BENZODIAZEPINES URINE NEGATIVE (NEGATIVE); CANNABINOIDS URINE NEGATIVE (NEGATIVE); COCAINE METABOLITE URINE NEGATIVE (NEGATIVE); METHADONE URINE NEGATIVE (NEGATIVE); OPIATES URINE POSITIVE (NEGATIVE); PHENCYCLIDINE URINE NEGATIVE (NEGATIVE)
[2019-09-21 21:21] VITALS: BP 111/62
[2019-09-22] MEDS ORDERED: NORC1TAB7 PO (12:17)
== END 2019-09-21 21:29 | disposition home or self-care (01) ==
LOC: EDBD 17:01 → M ED 17:01
DX: K74.60 Unspecified cirrhosis of liver (principal); R60.1 Generalized edema; I10 Essential (primary) hypertension; K21.9 Gastro-esophageal reflux disease without esophagitis; Z79.899 Other long term (current) drug therapy; Z97.5 Presence of (intrauterine) contraceptive device; Z88.8 Allergy status to other drugs, medicaments and biological substances; Z87.891 Personal history of nicotine dependence
CPT/HCPCS: 74176; 80048; 80076; 80307; 81001; 82140; 82550; 82553; 83690; 85025; 85610; 87088; 87186; 93041; 96361; 96365; 96375; 96376; 99285; C9113; G0480; J2270; J2405

== ENCOUNTER 2019-09-26 09:25 | Emergency (ER) | payer OTHER ==
[~2019-09-26] VITALS: Ht 162.6 cm; Wt 75.9 kg
[~2019-09-26 09:25] MED LIST changes: +CLON-412; +FURO20TA2 PO; +NORC1TAB7 PO; +POTA20TA6 PO; +ZOFR4TAB16 PO
[2019-09-26 10:08] LABS: BASO % 0.5 % (0.0-1.0); EOS # 0.1 10^3/uL (0.0-0.5); EOS % 0.7 % (0.0-3.0); HEMATOCRIT 34.1 % (36.0-47.0); HEMOGLOBIN 11.7 g/dl (12.0-15.5); LYMPH # 1.3 10^3/uL (1.5-5.0); MEAN CORPUSCULAR HEMOGLOBIN 37.5 pg (27.0-33.0); MEAN CORPUSCULAR HGB CONC 34.3 g/dl (32.0-36.5); MEAN CORPUSCULAR VOLUME 109.3 fl (80.0-96.0); MONO # 0.7 10^3/uL (0.0-0.8); MONO % 9.7 % (0.0-5.0); NEUTROPHILS # 5.3 10^3/uL (1.5-8.5); NEUTROPHILS % 70.6 % (36.0-66.0); PLATELET COUNT, AUTOMATED 113 10^3/uL (150-450); RED BLOOD COUNT 3.12 10^6/uL (4.00-5.40); WHITE BLOOD COUNT 7.4 10^3/uL (4.0-10.0)
[2019-09-26 10:17] LABS: INR 1.44; PROTHROMBIN TIME 17.3 SECONDS (11.8-14.0)
[2019-09-26 10:18] LABS: PARTIAL THROMBOPLASTIN TIME 38.1 SECONDS (25.0-38.4)
[2019-09-26] MEDS ORDERED: MORPHINE 4 MG/ML 1ML VIAL/SYRINGE (J2270) IV ONE ×2 (10:30→13:45)
[2019-09-26 10:41] LABS: HCG, SERUM QUALITATIVE NEGATIVE (NEGATIVE)
[2019-09-26 10:45] LABS: ALBUMIN 2.1 GM/DL (3.2-5.2); ALT/SGPT 44 U/L (12-78); BILIRUBIN,DIRECT 2.9 MG/DL (0.0-0.2); BILIRUBIN,TOTAL 4.8 MG/DL (0.2-1.0); BLOOD UREA NITROGEN 6 MG/DL (7-18); CALCIUM LEVEL 7.9 MG/DL (8.5-10.1); CARBON DIOXIDE LEVEL 30 MEQ/L (21-32); CHLORIDE LEVEL 100 MEQ/L (98-107); CREATININE FOR GFR 0.47 MG/DL (0.55-1.30); GLOMERULAR FILTRATION RATE > 60.0 (>60); GLUCOSE, FASTING 96 MG/DL (70-100); LIPASE 115 U/L (73-393); POTASSIUM SERUM 3.2 MEQ/L (3.5-5.1); SODIUM LEVEL 138 MEQ/L (136-145); TOTAL PROTEIN 6.7 GM/DL (6.4-8.2)
[2019-09-26] MEDS: GASTROGRAFIN SOLUTION 30ML PO SCH ×2 (11:21→12:21)
[2019-09-26] MEDS ORDERED: POTASSIUM CHLORIDE 10 MEQ SR TABLET PO ONE (11:30)
[2019-09-26] MEDS ORDERED: ISOVUE-370 76% 100ML VIAL As Ordered ONE (12:26)
--- NOTE | 2019-09-26 13:18 | REP ---
Clinical: Increasing right-sided abdominal pain. Technique: Axial contrast enhanced images from the lung bases to the pubic symphysis using oral (per protocol) and 100 ml Isovue 370 intravenous contrast material with coronal and sagittal re-formations. Findings: Moderate amount of ascites appears to be slightly increased from prior examination and consistent with cirrhosis and portal hypertension. The liver demonstrates coarsened echotexture with subtle nodularity and there is evidence for splenomegaly and portosystemic collateral vasculature. Pancreas, bilateral adrenal glands and kidneys appear normal. Evidence of prior cholecystectomy noted. Evaluation of the enteric system is without definite obstruction or obvious acute inflammatory process. There is evidence for prior gastric bypass surgery. Submucosal thickening and fat deposition extending from the cecum through the mid transverse colon is again appreciated the and the finding noted in cirrhosis. The pelvis demonstrates normal bladder and age-appropriate uterus/adnexa with IUD in satisfactory position. No obvious adenopathy. Abdominal aorta without aneurysm or dissection. No free air. Musculoskeletal structures are intact. Impression: 1. Findings described above compatible with cirrhosis and portal venous hypertension including slight increase to the the ascites. 2. No further obvious acute process appreciated. Electronically Signed by Lc Galindo MD 09/26/2019 01:10 P
[2019-09-26] MEDS ORDERED: NS 1,000 ML IV SCH (15:07)
[2019-09-26] MEDS ORDERED: SODIUM BICARBONATE 8.4% INJ 50MEQ 50 ML VIAL As Ordered ONE (15:43)
[2019-09-26 16:21] VITALS: BP 106/70
[2019-09-26 16:27] LABS: ASCITES FL COLOR YELLOW (COLORLESS); SOURCE, BODY FLUID ASCITES
[2019-09-26 16:28] LABS: APPEARANCE, BODY FLUID CLEAR (CLEAR)
[2019-09-26 16:42] LABS: SOURCE, BODY FLUID GLUCOSE ASCITES; SOURCE, BODY FLUID TOT PROTEIN ASCITES; TOTAL PROTEIN, BODY FLUID 0.7 G/DL (NOT ESTABLISHED)
[2019-09-26] MEDS ORDERED: LASI40TA9 PO (17:15)
--- NOTE | 2019-10-07 08:00 | REP ---
Ultrasound-guided paracentesis The procedure was performed by ETIENNE Levin, under the direct supervision of Dr. Reynaga. The risks and benefits of the procedure were explained to the patient and informed consent was obtained both verbally and written. Directly prior to the start of the procedure, a formal timeout was completed in the procedure room. Under ultrasound guidance, the largest pocket of fluid in the right flank was localized and skin was marked. The skin was then prepped and draped in a sterile fashion. 11 ml of buffered lidocaine was used as a local anesthetic. Using ultrasound guidance, an 8-Setswana multi side-hole catheter was inserted using trocar technique. 2,700 mL of yellow colored fluid was withdrawn, 200 ml was sent to the lab for further analysis, and the rest was discarded. The patient tolerated the procedure well and there were no immediate complications. After the appropriate monitored convalescence the patient was discharged from the department. Reviewed by ETIENNE Delgadillo 09/26/2019 05:07 P Electronically Signed by Blaze Reynaga MD 10/07/2019 07:51 A
== END 2019-09-26 17:35 | disposition home or self-care (01) ==
LOC: EDBD 09:25 → M ED 09:25
DX: K70.31 Alcoholic cirrhosis of liver with ascites (principal); F10.10 Alcohol abuse, uncomplicated; K76.6 Portal hypertension; E87.6 Hypokalemia; Z98.84 Bariatric surgery status; Z88.8 Allergy status to other drugs, medicaments and biological substances; Z79.899 Other long term (current) drug therapy
CPT/HCPCS: 36415; 49083; 74177; 80048; 80076; 82945; 83605; 83690; 84157; 84703; 85025; 85610; 85730; 87070; 89051; 93041; 96361; 96374; 96376; 99284; J2270; Q9963; Q9967

== ENCOUNTER 2020-12-16 10:33 | Emergency (ER) | payer OTHER ==
[~2020-12-16] VITALS: Ht 162.6 cm; Wt 72.5 kg
[~2020-12-16 10:33] MED LIST changes: +LASI40TA9 PO; +PANT40TA29 PO; -PANT40TA3 PO
[2020-12-16 10:34] VITALS: BP 125/69
[2020-12-16] MEDS ORDERED: [UNRECOGNIZED DRUG - CODE] XX (10:43)
[2020-12-17] MEDS ORDERED: ACET-683 PO (07:43)
[2020-12-17] MEDS ORDERED: THIA100TA PO (13:51)
[2020-12-17] MEDS ORDERED: VITA200028 PO (13:51)
[2020-12-17] MEDS ORDERED: ULTR5TAB PO (13:51)
[2020-12-17] MEDS ORDERED: [UNRECOGNIZED DRUG - CODE] PO (13:57)
== END 2020-12-16 12:33 | disposition left against medical advice (07) ==
LOC: M ED 10:33
DX: Z53.29 Procedure and treatment not carried out because of patient's decision for other reasons (principal)

== ENCOUNTER 2020-12-17 07:31 | Inpatient (IN) | payer OTHER ==
[~2020-12-17] VITALS: Ht 162.6 cm; Wt 71.9 kg
[~2020-12-17 07:31] MED LIST changes: +[UNRECOGNIZED DRUG - CODE] XX
[2020-12-17] MEDS ORDERED: ACET-683 PO (07:43)
[2020-12-17] MEDS ORDERED: NS 1,000 ML IV ONE (10:45)
[2020-12-17] MEDS ORDERED: MORPHINE 4 MG/ML 1ML VIAL/SYRINGE (J2270) IV ONE ×2 (10:45→15:35)
[2020-12-17] MEDS ORDERED: ONDANSETRON 4MG/2ML VIAL IV ONE (10:45)
[2020-12-17] MEDS ORDERED: ISOVUE-370 76% 100ML VIAL As Ordered ONE (10:46)
--- NOTE | 2020-12-17 11:06 | REP ---
INDICATION: ascites, SOB. COMPARISON: No comparison chest x-ray. TECHNIQUE: Portable upright AP chest radiograph. FINDINGS: The right hemidiaphragm is somewhat elevated. There is a linear density in the right base consistent with platelike atelectasis. Lung gonsalves are otherwise clear. The pleural angles are sharp. Heart is not enlarged. Pulmonary vasculature is not increased. No acute bony abnormality is seen. IMPRESSION: Linear platelike atelectasis right base. Otherwise no acute disease. <Electronically signed by Eduin Reynaga > 12/17/20 [id number]
[2020-12-17 11:18] LABS: BASO # 0.1 10^3/uL (0.0-0.2); BASO % 0.7 % (0.0-1.0); EOS # 0.1 10^3/uL (0.0-0.5); EOS % 0.9 % (0.0-3.0); HEMATOCRIT 30.4 % (36.0-47.0); HEMOGLOBIN 9.7 g/dl (12.0-15.5); LYMPH # 1.3 10^3/uL (1.5-5.0); LYMPH % 17.8 % (24.0-44.0); MEAN CORPUSCULAR HEMOGLOBIN 32.9 pg (27.0-33.0); MEAN CORPUSCULAR HGB CONC 31.9 g/dl (32.0-36.5); MEAN CORPUSCULAR VOLUME 103.1 fl (80.0-96.0); MONO # 0.6 10^3/uL (0.0-0.8); MONO % 8.5 % (2.0-8.0); NEUTROPHILS # 5.3 10^3/uL (1.5-8.5); NEUTROPHILS % 71.3 % (36.0-66.0); RED BLOOD COUNT 2.95 10^6/uL (4.00-5.40); WHITE BLOOD COUNT 7.4 10^3/uL (4.0-10.0)
[2020-12-17 11:21] LABS: GLUCOSE, URINE (UA) MANUAL NEGATIVE (NEGATIVE); KETONE, URINE MANUAL OBSCURED mg/dL (NEGATIVE); UROBILINOGEN, URINE MANUAL OBSCURED mg/dl (NORMAL)
[2020-12-17 11:22] LABS: BILIRUBIN, URINE MANUAL OBSCURED (NEGATIVE)
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
[2020-12-17 11:26] LABS: RBC, URINE 0-1 /hpf (0-3); SQUAMOUS EPITHELIAL CELL URINE MOD AMOUNT /hpf (SMALL AMT)
[2020-12-17 11:27] LABS: AMORPHOUS SEDIMENT, URINE LARGE AMOUNT (NEGATIVE); BACTERIA, URINE NONE SEEN; HYALINE CAST, URINE NONE SEEN /lpf (0-1)
[2020-12-17 11:42] LABS: AMPHETAMINES LEVEL URINE NEGATIVE (NEGATIVE); BARBITURATES URINE NEGATIVE (NEGATIVE); BENZODIAZEPINES URINE NEGATIVE (NEGATIVE); CANNABINOIDS URINE NEGATIVE (NEGATIVE); COCAINE METABOLITE URINE NEGATIVE (NEGATIVE); METHADONE URINE NEGATIVE (NEGATIVE); OPIATES URINE NEGATIVE (NEGATIVE); PHENCYCLIDINE URINE NEGATIVE (NEGATIVE); PLATELET COUNT, AUTOMATED 39 10^3/uL (150-450)
[2020-12-17 11:47] LABS: ETHYL ALCOHOL (ETHANOL) 0.089 % (0.000-0.010); LIPASE 206 U/L (73-393)
[2020-12-17 12:13] LABS: BLOOD UREA NITROGEN 4 MG/DL (7-18); CALCIUM LEVEL 7.9 MG/DL (8.5-10.1); CARBON DIOXIDE LEVEL 26 MEQ/L (21-32); CHLORIDE LEVEL 103 MEQ/L (98-107); CREATININE FOR GFR 0.44 MG/DL (0.55-1.30); GLOMERULAR FILTRATION RATE > 60.0 (>60); GLUCOSE, FASTING 82 MG/DL (70-100); POTASSIUM SERUM 3.1 MEQ/L (3.5-5.1); SODIUM LEVEL 140 MEQ/L (136-145)
[2020-12-17 12:39] LABS: ALBUMIN 2.2 GM/DL (3.2-5.2); ALT/SGPT 52 U/L (12-78); BILIRUBIN,TOTAL 14.4 MG/DL (0.2-1.0); TOTAL PROTEIN 6.8 GM/DL (6.4-8.2)
[2020-12-17 13:45] LABS: INR 1.87; PROTHROMBIN TIME 21.9 SECONDS (12.7-14.5)
[2020-12-17 13:46] LABS: PARTIAL THROMBOPLASTIN TIME 44.5 SECONDS (25.9-37.0)
[2020-12-17] MEDS ORDERED: ULTR5TAB PO (13:51)
[2020-12-17] MEDS ORDERED: THIA100TA PO (13:51)
[2020-12-17] MEDS ORDERED: VITA200028 PO (13:51)
[2020-12-17] MEDS ORDERED: [UNRECOGNIZED DRUG - CODE] PO (13:57)
[2020-12-17] MEDS ORDERED: HOME MED LIST COMPLETE! XX SCH (14:00)
[2020-12-17 14:04] LABS: RSV AMPLIFICATION NEGATIVE (NEGATIVE)
[2020-12-17] MEDS ORDERED: PHYTONADIONE 5 MG TAB PO ONE (14:25)
[2020-12-17] MEDS ORDERED: ONDANSETRON 4MG/2ML VIAL IV PRN (14:25)
[2020-12-17 15:06] LABS: BILIRUBIN,DIRECT 9.6 MG/DL (0.0-0.2)
[2020-12-17 16:30] VITALS: BP 130/69
[2020-12-17] MEDS ORDERED: POTASSIUM CHLORIDE 10MEQ SR TABLET PO ONE (16:35)
[2020-12-17] MEDS: THIAMINE 100 MG TAB PO SCH (16:39)
[2020-12-17] MEDS: traMADol 50 MG TAB PO PRN (16:39)
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
[2020-12-17] MEDS: PANTOPRAZOLE 40MG VIAL (C9113 PER 1) IV SCH (17:10)
[2020-12-17] MEDS ORDERED: SODIUM BICARBONATE 8.4% INJ 50MEQ 50 ML VIAL As Ordered ONE (17:11)
[2020-12-17 18:19] LABS: SOURCE, BODY FLUID ASCITES; SPEC. GRAVITY BODY FLUIDS 1.007 (NOT ESTABLISHED)
[2020-12-17 18:40] LABS: APPEARANCE, BODY FLUID CLEAR (CLEAR); ASCITES FL COLOR YELLOW (COLORLESS)
[2020-12-17 18:43] VITALS: BP 126/66
[2020-12-17 18:47] LABS: SOURCE, BODY FLUID ALBUMIN ASCITES
[2020-12-17 18:59] VITALS: BP 121/63
--- NOTE | 2020-12-17 19:00 | REP ---
INDICATION: ascites The patient has a history of ascites COMPARISON: None. TECHNIQUE: The procedure was performed by ETIENNE Levin, under the direct supervision of Dr. Kulkarni The risks and benefits of the procedure were explained to the patient and an informed consent was obtained both verbally and written. Directly prior to the start of the procedure a formal time-out was completed in the procedure room. The largest pocket of fluid was localized in the left flank using ultrasound guidance. The skin was prepped and draped in a sterile fashion. Eleven ML of buffered lidocaine was used as a local anesthetic. An 8-Khmer multi side-hole catheter was inserted using trocar technique. FINDINGS: 2300 mL of yellow ascites was removed in total, 1300 mL was sent to the laboratory for further analysis, and the rest was discarded. The patient tolerated the procedure well and there were no immediate complications. After the appropriate amount of monitored convalescence, the patient was discharged from the department. IMPRESSION: Ultrasound-guided paracentesis with removal of 2300 mL of yellow ascites. <Electronically signed by Berenice Candelaria > 12/17/20 1821 <Electronically signed by Hermann Kulkarni > 12/17/20 [id number]
[2020-12-17 19:05] LABS: SOURCE, BODY FLUID GLUCOSE ASCITES; SOURCE, BODY FLUID TOT PROTEIN ASCITES; TOTAL PROTEIN, BODY FLUID 0.4 G/DL (NOT ESTABLISHED)
[2020-12-17 21:02] VITALS: BP 116/74
[2020-12-17] MEDS ORDERED: MORPHINE 2 MG/ML 1ML VIAL (J2270) IV ONE (21:05)
[2020-12-17 21:54] VITALS: BP 118/74
[2020-12-17 23:10] VITALS: BP 115/70
[2020-12-18] MEDS: traMADol 50 MG TAB PO PRN ×3 (01:40→20:10)
[2020-12-18 06:00] VITALS: BP 114/73
[2020-12-18 07:41] LABS: ALBUMIN 2.1 GM/DL (3.2-5.2); ALT/SGPT 42 U/L (12-78); BILIRUBIN,TOTAL 14.1 MG/DL (0.2-1.0); BLOOD UREA NITROGEN 4 MG/DL (7-18); CALCIUM LEVEL 7.8 MG/DL (8.5-10.1); CARBON DIOXIDE LEVEL 29 MEQ/L (21-32); CHLORIDE LEVEL 102 MEQ/L (98-107); GLOMERULAR FILTRATION RATE > 60.0 (>60); GLUCOSE, FASTING 70 MG/DL (70-100); POTASSIUM SERUM 3.5 MEQ/L (3.5-5.1); SODIUM LEVEL 141 MEQ/L (136-145); TOTAL PROTEIN 6.1 GM/DL (6.4-8.2)
[2020-12-18] MEDS: FOLIC ACID 1 MG TAB PO SCH (08:24)
[2020-12-18] MEDS: THIAMINE 100 MG TAB PO SCH ×2 (08:24→20:10)
[2020-12-18] MEDS ORDERED: PHYTONADIONE 5 MG TAB PO SCH (09:00)
[2020-12-18] MEDS ORDERED: FUROSEMIDE 20 MG TAB PO SCH (09:00)
[2020-12-18] MEDS ORDERED: methylPREDNISolone 40MG 1ML VIAL IV ONE (11:00)
[2020-12-18 12:00] LABS: BASO # 0.1 10^3/uL (0.0-0.2); BASO % 0.7 % (0.0-1.0); EOS # 0.1 10^3/uL (0.0-0.5); EOS % 1.5 % (0.0-3.0); HEMOGLOBIN 9.5 g/dl (12.0-15.5); MEAN CORPUSCULAR HEMOGLOBIN 33.5 pg (27.0-33.0); MEAN CORPUSCULAR HGB CONC 31.7 g/dl (32.0-36.5); MEAN CORPUSCULAR VOLUME 105.6 fl (80.0-96.0); MONO # 0.5 10^3/uL (0.0-0.8); MONO % 7.6 % (2.0-8.0); NEUTROPHILS % 74.6 % (36.0-66.0); RED BLOOD COUNT 2.84 10^6/uL (4.00-5.40); WHITE BLOOD COUNT 6.7 10^3/uL (4.0-10.0)
[2020-12-18] MEDS: LACTULOSE 20 GM/30 ML SYRUP UD PO SCH ×2 (12:01→20:10)
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
[2020-12-18 12:02] LABS: PLATELET COUNT, AUTOMATED 37 10^3/uL (150-450)
[2020-12-18] MEDS: SPIRONOLACTONE 25 MG TAB PO SCH (12:02)
[2020-12-18 12:10] LABS: INR 1.74; PROTHROMBIN TIME 20.8 SECONDS (12.7-14.5)
[2020-12-18 12:11] LABS: PARTIAL THROMBOPLASTIN TIME 43.7 SECONDS (25.9-37.0)
[2020-12-18 14:00] VITALS: BP 132/90
[2020-12-18] MEDS ORDERED: oxyCODONE 5MG TAB PO ONE (15:20)
[2020-12-18] MEDS: PANTOPRAZOLE 40MG VIAL (C9113 PER 1) IV SCH (17:59)
[2020-12-18 19:35] VITALS: BP 116/77
[2020-12-19 05:05] VITALS: BP 108/65
[2020-12-19 06:20] LABS: BASO % 0.3 % (0.0-1.0); EOS # 0.1 10^3/uL (0.0-0.5); EOS % 0.8 % (0.0-3.0); HEMATOCRIT 26.9 % (36.0-47.0); HEMOGLOBIN 8.7 g/dl (12.0-15.5); LYMPH # 1.5 10^3/uL (1.5-5.0); LYMPH % 19.6 % (24.0-44.0); MEAN CORPUSCULAR HEMOGLOBIN 33.5 pg (27.0-33.0); MEAN CORPUSCULAR HGB CONC 32.3 g/dl (32.0-36.5); MEAN CORPUSCULAR VOLUME 103.5 fl (80.0-96.0); MONO # 0.7 10^3/uL (0.0-0.8); MONO % 8.5 % (2.0-8.0); NEUTROPHILS # 5.4 10^3/uL (1.5-8.5); PLATELET COUNT, AUTOMATED 36 10^3/uL (150-450); WHITE BLOOD COUNT 7.7 10^3/uL (4.0-10.0)
[2020-12-19 06:47] LABS: ALT/SGPT 38 U/L (12-78); BILIRUBIN,TOTAL 11.6 MG/DL (0.2-1.0); BLOOD UREA NITROGEN 8 MG/DL (7-18); CALCIUM LEVEL 7.8 MG/DL (8.5-10.1); CARBON DIOXIDE LEVEL 28 MEQ/L (21-32); CHLORIDE LEVEL 101 MEQ/L (98-107); CREATININE FOR GFR 0.46 MG/DL (0.55-1.30); GLOMERULAR FILTRATION RATE > 60.0 (>60); GLUCOSE, FASTING 80 MG/DL (70-100); POTASSIUM SERUM 3.5 MEQ/L (3.5-5.1); SODIUM LEVEL 137 MEQ/L (136-145); TOTAL PROTEIN 6.1 GM/DL (6.4-8.2)
[2020-12-19] MEDS ORDERED: oxyCODONE 5MG TAB PO PRN (07:15)
[2020-12-19 07:30] LABS: INR 1.82; PROTHROMBIN TIME 21.5 SECONDS (12.7-14.5)
[2020-12-19] MEDS: LACTULOSE 20 GM/30 ML SYRUP UD PO SCH (08:33)
[2020-12-19] MEDS: SPIRONOLACTONE 25 MG TAB PO SCH (08:33)
[2020-12-19] MEDS: THIAMINE 100 MG TAB PO SCH (08:33)
[2020-12-19] MEDS: FOLIC ACID 1 MG TAB PO SCH (08:33)
[2020-12-19] MEDS ORDERED: methylPREDNISolone 40MG 1ML VIAL IV SCH (10:00)
[2020-12-19] MEDS ORDERED: FOLI1TAB11 PO (10:40)
[2020-12-19] MEDS ORDERED: PHYT5TAB9 PO (10:40)
[2020-12-19] MEDS ORDERED: LACT20EL PO (10:40)
[2020-12-19] MEDS ORDERED: LASI20TA3 PO (10:40)
[2020-12-19] MEDS ORDERED: THIA100T7 PO (10:40)
[2020-12-19] MEDS ORDERED: ALDA25TA2 PO (10:40)
[2020-12-19] MEDS ORDERED: PANT40TA29 PO (11:14)
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
== END 2020-12-19 10:15 | disposition left against medical advice (07) | DRG 280 ==
LOC: M ED 07:31 → M ED INP 14:23 → ENRESERV 14:50 → M MSPAV 16:19
PROVIDERS: ADMIT Internal Medicine Nephrology; ATTEND Internal Medicine Nephrology
PROC: 30233K1 Transfusion of Nonautologous Frozen Plasma into Peripheral Vein, Percutaneous Approach (ICD-10-PCS; principal; 2020-12-17 16:25)
DX: K70.11 Alcoholic hepatitis with ascites (principal); K76.6 Portal hypertension; D69.59 Other secondary thrombocytopenia; R16.2 Hepatomegaly with splenomegaly, not elsewhere classified; Z98.84 Bariatric surgery status; E87.6 Hypokalemia; F10.20 Alcohol dependence, uncomplicated; Z90.49 Acquired absence of other specified parts of digestive tract; Z79.899 Other long term (current) drug therapy; Z88.8 Allergy status to other drugs, medicaments and biological substances; K70.31 Alcoholic cirrhosis of liver with ascites

== ENCOUNTER 2020-12-24 14:01 | Inpatient (IN) | payer OTHER ==
[~2020-12-24] VITALS: Ht 162.6 cm; Wt 64.9 kg
[~2020-12-24 14:01] MED LIST changes: +ACET-683 PO; +ALDA25TA2 PO; +LACT20EL PO; +PHYT5TAB9 PO; +THIA100T7 PO; +ULTR5TAB PO; +VITA200028 PO; +[UNRECOGNIZED DRUG - CODE] PO
[2020-12-24 16:44] LABS: BASO % 0.5 % (0.0-1.0); EOS # 0.1 10^3/uL (0.0-0.5); EOS % 1.8 % (0.0-3.0); HEMATOCRIT 26.9 % (36.0-47.0); HEMOGLOBIN 8.7 g/dl (12.0-15.5); LYMPH # 1.2 10^3/uL (1.5-5.0); LYMPH % 21.1 % (24.0-44.0); MEAN CORPUSCULAR HEMOGLOBIN 34.7 pg (27.0-33.0); MEAN CORPUSCULAR HGB CONC 32.3 g/dl (32.0-36.5); MEAN CORPUSCULAR VOLUME 107.2 fl (80.0-96.0); MONO # 0.7 10^3/uL (0.0-0.8); NEUTROPHILS # 3.5 10^3/uL (1.5-8.5); NEUTROPHILS % 63.2 % (36.0-66.0); RED BLOOD COUNT 2.51 10^6/uL (4.00-5.40); WHITE BLOOD COUNT 5.5 10^3/uL (4.0-10.0)
[2020-12-24 16:46] LABS: PLATELET COUNT, AUTOMATED 42 10^3/uL (150-450)
[2020-12-24 16:53] LABS: INR 1.93; PROTHROMBIN TIME 22.4 SECONDS (12.7-14.5)
[2020-12-24 16:54] LABS: PARTIAL THROMBOPLASTIN TIME 44.1 SECONDS (25.9-37.0)
[2020-12-24 17:02] LABS: HCG, SERUM QUALITATIVE NEGATIVE (NEGATIVE)
[2020-12-24 17:05] LABS: ALT/SGPT 39 U/L (12-78); BILIRUBIN,DIRECT 7.7 MG/DL (0.0-0.2); BLOOD UREA NITROGEN 6 MG/DL (7-18); CALCIUM LEVEL 7.7 MG/DL (8.5-10.1); CARBON DIOXIDE LEVEL 28 MEQ/L (21-32); CHLORIDE LEVEL 104 MEQ/L (98-107); CREATININE FOR GFR 0.55 MG/DL (0.55-1.30); ETHYL ALCOHOL (ETHANOL) < 0.003 % (0.000-0.010); GLOMERULAR FILTRATION RATE > 60.0 (>60); GLUCOSE, FASTING 76 MG/DL (70-100); LIPASE 247 U/L (73-393); POTASSIUM SERUM 3.3 MEQ/L (3.5-5.1); SODIUM LEVEL 139 MEQ/L (136-145); TOTAL PROTEIN 6.3 GM/DL (6.4-8.2)
[2020-12-24] MEDS ORDERED: MORPHINE 4 MG/ML 1ML VIAL/SYRINGE (J2270) IV ONE (17:20)
[2020-12-24] MEDS ORDERED: PROMETHAZINE INJ 25 MG/ML VIAL (J2550) IV ONE (17:20)
[2020-12-24 17:54] LABS: MAGNESIUM LEVEL 1.9 MG/DL (1.8-2.4)
[2020-12-24 18:55] LABS: APPEARANCE, URINE HAZY (CLEAR); BACTERIA, URINE AUTO 3+ (NEGATIVE); BILIRUBIN, URINE AUTO 2+ (NEGATIVE); BLOOD, URINE BLOOD NEGATIVE (NEGATIVE); COLOR, URINE AMBER (YELLOW); GLUCOSE, URINE (UA) AUTO NEGATIVE (NEGATIVE); KETONE, URINE AUTO TRACE mg/dL (NEGATIVE); LEUKOCYTE ESTERASE, URINE AUTO NEGATIVE (NEGATIVE); MUCUS, URINE LARGE (NEGATIVE); NITRITE, URINE AUTO POSITIVE (NEGATIVE); PROTEIN, URINE AUTO 1+ mg/dL (NEGATIVE); RBC, URINE AUTO 1 /HPF (0-3); SPECIFIC GRAVITY URINE AUTO 1.025 (1.002-1.035); SQUAMOUS EPITHELIAL CELL UR AU 2 /HPF (0-6); WBC, URINE AUTO 5 /HPF (0-3)
[2020-12-24 19:08] LABS: AMPHETAMINES LEVEL URINE NEGATIVE (NEGATIVE); BARBITURATES URINE NEGATIVE (NEGATIVE); BENZODIAZEPINES URINE NEGATIVE (NEGATIVE); CANNABINOIDS URINE NEGATIVE (NEGATIVE); COCAINE METABOLITE URINE NEGATIVE (NEGATIVE); METHADONE URINE NEGATIVE (NEGATIVE); OPIATES URINE POSITIVE (NEGATIVE); PHENCYCLIDINE URINE NEGATIVE (NEGATIVE)
[2020-12-24] MEDS: GASTROGRAFIN SOLUTION 30ML PO SCH ×2 (19:53→20:23)
[2020-12-24] MEDS ORDERED: ISOVUE-370 76% 100ML VIAL As Ordered ONE (20:49)
--- NOTE | 2020-12-24 21:46 | ECGEPIP ---
[facility] - ED Test Date: 2020-12-24 Pat Name: ELVIRA MENDIOLA Department: Room: - Gender: Female Program Development Specialist: [email or web address] : 1980 Requested By: ALFRED Lovell Order Number: [id number] Reading MD: Stephy Cabrera Measurements Intervals [place] Rate: 100 P: 49 VA: 142 QRS: 17 QRSD: 86 T: 34 QT: 394 QTc: 508 Interpretive Statements Normal sinus rhythm Septal infarct , age undetermined T wave abnormality, consider ischemia Prolonged QT, clinical correlation no prior Electronically Signed on 12-24-2020 21:45:46 EDT by Stephy Cabrera
--- NOTE | 2020-12-24 23:39 | REPVR ---
PROCEDURE INFORMATION: Exam: CT Abdomen With Contrast Exam date and time: 12/24/2020 9:53 PM Age: 40 years old Clinical indication: Abnormal findings; Abnormal lab test; Other: Elevated bili TECHNIQUE: Imaging protocol: Computed tomography images of the abdomen with intravenous contrast. Radiation optimization: All CT scans at this facility use at least one of these dose optimization techniques: automated exposure control; mA and/or kV adjustment per patient size (includes targeted exams where dose is matched to clinical indication); or iterative reconstruction. Contrast material: ISOVUE 370; Contrast volume: 100 ml; Contrast route: INTRAVENOUS (IV); COMPARISON: CT ABD/PEL W/IV CONTRAST ONLY 12/17/2020 10:50 AM FINDINGS: Liver: Heterogeneous liver with large geographic areas of low attenuation and some lobular areas of higher attenuation along the lateral aspect of the right hepatic lobe. Portal venous collaterals are noted in the mesentery. The liver at mid clavicular line measures 15.5 cm. There is a slightly nodular surface of the liver. Gallbladder and bile ducts: Status post cholecystectomy. Mild biliary dilation which is attributed to prior cholecystectomy and is likely physiologic. The CBD measures 11 mm with tapering to the ampulla. Pancreas: Normal. No ductal dilation. Spleen: The spleen measures 17.9 cm. Adrenals: Normal. No mass. Kidneys and ureters: Normal. No hydronephrosis. Stomach and bowel: Evidence of gastric bypass with collapse of the bypassed stomach. Colonic wall thickening. Intraperitoneal space: Moderate peritoneal ascites. Lymph nodes: Unremarkable. No enlarged lymph nodes. Vasculature: Unremarkable. No abdominal aortic aneurysm. Bones/joints: Unremarkable. No acute fracture. No dislocation. Soft tissues: Unremarkable. IMPRESSION: 1. Slightly nodular surface of the liver with prominent heterogeneous enhancement which may reflect cirrhosis. There is splenomegaly, portal venous collateralization and moderate peritoneal ascites. 2. Evidence of pancolitis. 3. Status post cholecystectomy and gastric bypass. Electronically signed by: Ayo Javier On 12/24/2020 23:39:19 PM
[2020-12-25] VITALS (9 sets, daily range): BP systolic 98–126; BP diastolic 55–62
[2020-12-25] MEDS ORDERED: cefTRIAXone SOD 1 GM in D5W MINI-BAG PLUS 50 ML IV ONE (00:05)
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
[2020-12-25] MEDS ORDERED: FURO20TA2 PO (00:24)
[2020-12-25] MEDS ORDERED: PHYT5TA PO (00:24)
[2020-12-25] MEDS ORDERED: LACT20EL PO (00:24)
[2020-12-25] MEDS ORDERED: SUPE5000 PO (00:24)
[2020-12-25] MEDS ORDERED: FOLI1TAB11 PO (00:24)
[2020-12-25] MEDS ORDERED: THIA100T22 PO (00:24)
[2020-12-25] MEDS ORDERED: SPIR-10 PO (00:24)
[2020-12-25] MEDS ORDERED: PANT-23 PO (00:24)
[2020-12-25] MEDS ORDERED: D31000TA2 PO (00:24)
[2020-12-25] MEDS ORDERED: HOME MED LIST COMPLETE! XX SCH (00:25)
[2020-12-25] MEDS: MORPHINE 4 MG/ML 1ML VIAL/SYRINGE (J2270) IV PRN ×6 (00:41→23:13)
[2020-12-25] MEDS: PROMETHAZINE INJ 25 MG/ML VIAL (J2550) IV PRN ×2 (00:42→09:27)
[2020-12-25 00:56] LABS: FERRITIN 67 NG/ML (8-252); IRON (FE) 61 UG/DL (50-170); PERCENT SATURATION 43.3 % (13.2-45.0); TOTAL IRON BINDING CAPACITY 141 UG/DL (250-450)
[2020-12-25] MEDS ORDERED: POTASSIUM CHLORIDE 10MEQ SR TABLET PO ONE ×2 (01:35→08:30)
[2020-12-25 04:11] LABS: RSV AMPLIFICATION NEGATIVE (NEGATIVE)
[2020-12-25 07:17] LABS: HEMATOCRIT 24.7 % (36.0-47.0); HEMOGLOBIN 7.9 g/dl (12.0-15.5); MEAN CORPUSCULAR HEMOGLOBIN 34.6 pg (27.0-33.0); MEAN CORPUSCULAR VOLUME 108.3 fl (80.0-96.0); RED BLOOD COUNT 2.28 10^6/uL (4.00-5.40); WHITE BLOOD COUNT 4.4 10^3/uL (4.0-10.0)
[2020-12-25 07:23] LABS: PLATELET COUNT, AUTOMATED 41 10^3/uL (150-450)
[2020-12-25 07:31] LABS: INR 1.95; PROTHROMBIN TIME 22.6 SECONDS (12.7-14.5)
[2020-12-25 07:47] LABS: ALBUMIN 2.2 GM/DL (3.2-5.2); ALT/SGPT 33 U/L (12-78); BLOOD UREA NITROGEN 5 MG/DL (7-18); CALCIUM LEVEL 7.9 MG/DL (8.5-10.1); CARBON DIOXIDE LEVEL 28 MEQ/L (21-32); CHLORIDE LEVEL 105 MEQ/L (98-107); GLOMERULAR FILTRATION RATE > 60.0 (>60); GLUCOSE, FASTING 68 MG/DL (70-100); MAGNESIUM LEVEL 1.8 MG/DL (1.8-2.4); POTASSIUM SERUM 3.1 MEQ/L (3.5-5.1); SODIUM LEVEL 142 MEQ/L (136-145)
[2020-12-25] MEDS: SUCRALFATE 1 GM TAB PO SCH ×4 (08:30→20:04)
[2020-12-25] MEDS: DOCUSATE SODIUM 100MG CAPSULE PO SCH ×2 (08:30→20:04)
[2020-12-25] MEDS: PHYTONADIONE 5 MG TAB PO SCH (08:30)
[2020-12-25] MEDS: FOLIC ACID 1 MG TAB PO SCH (08:31)
[2020-12-25] MEDS: PANTOPRAZOLE 40MG VIAL (C9113 PER 1) IV SCH ×2 (08:31→20:04)
[2020-12-25] MEDS: LACTULOSE 20 GM/30 ML SYRUP UD PO SCH (08:31)
[2020-12-25] MEDS: THIAMINE 100 MG TAB PO SCH (08:31)
[2020-12-25] MEDS: SPIRONOLACTONE 25 MG TAB PO SCH (08:34)
[2020-12-25] MEDS: FUROSEMIDE 20 MG TAB PO SCH (08:34)
[2020-12-25 08:54] LABS: FOLATE 21.8 NG/ML (>5.4); VITAMIN B12 LEVEL > 2000 PG/ML (247-911)
[2020-12-25 13:14] LABS: APPEARANCE, BODY FLUID CLEAR (CLEAR); ASCITES FL COLOR YELLOW (COLORLESS); SOURCE, BODY FLUID ASCITES
[2020-12-25 13:16] LABS: SPEC. GRAVITY BODY FLUIDS 1.019 (NOT ESTABLISHED)
[2020-12-25 13:39] LABS: SOURCE, BODY FLUID ALBUMIN ASCITES; SOURCE, BODY FLUID GLUCOSE ASCITES; SOURCE, BODY FLUID TOT PROTEIN ASCITES; TOTAL PROTEIN, BODY FLUID 0.6 G/DL (NOT ESTABLISHED)
--- NOTE | 2020-12-25 15:38 | REP ---
INDICATION: ascites. COMPARISON: None. TECHNIQUE: The procedure was performed under the direct supervision of Dr. Reynaga. The risks and benefits of the procedure were explained to the patient and informed consent was obtained. The largest pocket of fluid was localized in the left flank using ultrasound guidance. The skin was prepped and draped in a sterile fashion. 6 mL of 1% lidocaine was used as a local anesthetic. An 8-Chadian multi side-hole catheter was inserted using trocar technique.2400 mL of yellow fluid was withdrawn with a sample sent to the lab for analysis. Estimated blood loss: Less than 1 mL The patient tolerated the procedure well and there were no immediate complications. After the appropriate amount of monitored convalescence, the patient was discharged from the department. FINDINGS: None IMPRESSION: Ultrasound-guided paracentesis [id number] mL of yellow fluid. <Electronically signed by Fabian Turner > 12/25/20 1510 <Electronically signed by Eduin Reynaga > 12/25/20 [id number]
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
[2020-12-25] MEDS: cefTRIAXone SOD 1 GM in D5W MINI-BAG PLUS 50 ML IV SCH (23:57)
[2020-12-26] MEDS: MORPHINE 4 MG/ML 1ML VIAL/SYRINGE (J2270) IV PRN ×5 (05:31→22:39)
[2020-12-26 06:00] VITALS: BP 105/62
[2020-12-26 07:17] LABS: HEMATOCRIT 26.7 % (36.0-47.0); HEMOGLOBIN 8.5 g/dl (12.0-15.5); MEAN CORPUSCULAR HEMOGLOBIN 34.6 pg (27.0-33.0); MEAN CORPUSCULAR HGB CONC 31.8 g/dl (32.0-36.5); MEAN CORPUSCULAR VOLUME 108.5 fl (80.0-96.0); RED BLOOD COUNT 2.46 10^6/uL (4.00-5.40); WHITE BLOOD COUNT 4.5 10^3/uL (4.0-10.0)
[2020-12-26 07:28] LABS: PLATELET COUNT, AUTOMATED 47 10^3/uL (150-450)
[2020-12-26 07:32] LABS: INR 1.93; PROTHROMBIN TIME 22.5 SECONDS (12.7-14.5)
[2020-12-26 07:58] LABS: ALBUMIN 2.3 GM/DL (3.2-5.2); ALT/SGPT 31 U/L (12-78); BLOOD UREA NITROGEN 5 MG/DL (7-18); CALCIUM LEVEL 7.8 MG/DL (8.5-10.1); CARBON DIOXIDE LEVEL 28 MEQ/L (21-32); CHLORIDE LEVEL 105 MEQ/L (98-107); CREATININE FOR GFR 0.55 MG/DL (0.55-1.30); GLOMERULAR FILTRATION RATE > 60.0 (>60); GLUCOSE, FASTING 84 MG/DL (70-100); MAGNESIUM LEVEL 1.8 MG/DL (1.8-2.4); POTASSIUM SERUM 2.9 MEQ/L (3.5-5.1); SODIUM LEVEL 140 MEQ/L (136-145); TOTAL PROTEIN 6.1 GM/DL (6.4-8.2)
[2020-12-26] MEDS: SPIRONOLACTONE 25 MG TAB PO SCH (08:59)
[2020-12-26] MEDS: PHYTONADIONE 5 MG TAB PO SCH (08:59)
[2020-12-26] MEDS: FOLIC ACID 1 MG TAB PO SCH (08:59)
[2020-12-26] MEDS: SUCRALFATE 1 GM TAB PO SCH ×4 (09:00→20:20)
[2020-12-26] MEDS: DOCUSATE SODIUM 100MG CAPSULE PO SCH ×2 (09:00→20:20)
[2020-12-26] MEDS: LACTULOSE 20 GM/30 ML SYRUP UD PO SCH (09:00)
[2020-12-26] MEDS: THIAMINE 100 MG TAB PO SCH (09:01)
[2020-12-26] MEDS: PANTOPRAZOLE 40MG VIAL (C9113 PER 1) IV SCH ×2 (09:01→20:19)
[2020-12-26] MEDS: POTASSIUM CHLORIDE 10MEQ SR TABLET PO SCH ×4 (10:08→16:48)
[2020-12-26] MEDS: FUROSEMIDE 20 MG TAB PO SCH (10:09)
[2020-12-26 14:00] VITALS: BP 106/67
[2020-12-26] MEDS ORDERED: methylPREDNISolone 40MG 1ML VIAL IV SCH (15:00)
--- NOTE | 2020-12-26 15:03 | IPNPDOC ---
Text Note Date of Service The patient was seen on 12/26/20. NOTE Subjective: Patient is a 32-year-old female came to the hospital decompensated cirrhosis with intractable abdominal pain. Patient is feeling slightly better although she says that the area where they did the paracentesis is sore today. Patient is less distended she says is otherwise feeling better. She still has some nausea but does not have any vomiting. Patient is otherwise feeling well today. Review of systems: General: Patient denies fevers HEENT: Patient denies headaches Cardiovascular: Patient denies chest pain Respiratory: Patient denies shortness of breath, cough GI: Patient reports abdominal pain and nausea as above : Patient denies increased frequency or pain with urination Extremities: Patient denies swelling or pain in extremities Neurological: Patient denies numbness or tingling in legs Physical exam: Vitals: See below General: Alert and oriented female who was sitting up in bed when I walked in. Patient not appear to be in any acute distress. HEENT: Normocephalic, atraumatic, moist mucous membranes, icteric sclera Neck: No lymphadenopathy or thyromegaly Cardiac: Regular rate and rhythm, no murmurs, normal S1, normal S2 Pulm: Clear to auscultation bilaterally. No wheezes, rhonchi, rales Abd: Nondistended, nontender to palpation, normal bowel sounds Ext: No edema bilateral lower extremities Skin: Patient was jaundiced and had a yellow hue down through her chest Labs: See below Imaging: No new imaging has been performed Assessment/plan: 40-year-old female with past medical history of alcoholic cirrhosis, portal hypertension, gastric bypass status who presented the emergency department chief complaint of intractable abdominal pain began 2 weeks ago. Patient developed nausea and vomiting over the past 2 days prior to coming in. Patient had a relapse of alcoholism 2 weeks ago and subsequently developed convert symptomology 1. Decompensated alcoholic cirrhosis/hepatitis with ascites. Likely induced by alcohol binge 2 weeks ago. Patient be started on methylprednisolone today as patient has an allergy to prednisone. We can send the patient home on 32 mg of methylprednisolone orally once the patient is ready to go home. Patient's bilirubin has decreased to 11. I did speak with Dr. Ferreira of gastroenterology who states that the patient can follow-up in their office. Patient states that she was trying to set up an appointment prior to coming to the hospital. I had a long conversation with the patient today about the need for abstaining from alcohol as her mortality is quite high at this point and if she does have anot her drink of alcohol, her mortality only increases. Patient's meld score is 23 which gives her a 33% mortality in the next 3 months. I explained this to the patient and she is aware. Patient states that she uses [employer] and other activities such as that to take her mind off drinking. Patient also states that she would like some treatment for alcohol. Due to the state of her liver, I do not intend to use naltrexone. Acamprosate is an option for the patient. We will continue to monitor. 2. Hyperbilirubinemia. This is secondary to decompensated cirrhosis. Continue to monitor. This appears to have peaked at this time. 3. Anemia. This is most likely secondary to her chronic liver disease. 4. Questionable pancolitis. Discussed with gastroenterology most likely an overread. Patient does not have diarrhea. Continue to monitor. 5. Possible urinary tract infection. Does not complain of any urinary symptoms. Follow-up urine culture DVT Prophylaxis: Teds and sequentials Disposition: Pending clinical improvement VS,Fishbone, I+O VS, Fishbone, I+O Laboratory Tests 12/26/20 06:46 Vital Signs Date Time Temp Pulse Resp B/P (MAP) Pulse Ox O2 Delivery O2 Flow Rate FiO2 12/26/20 14:25 19 Room Air 12/26/20 06:00 98.7 92 105/62 (76) 100 I&O- Last 24 Hours up to 6 AM 12/26/20 06:00 Intake Total 2350.0 ml Output Total 1450 ml Balance 900.0 ml FOREST CAMPBELL DO Dec 26, 2020 15:03
[2020-12-26 22:00] VITALS: BP 108/64
[2020-12-26] MEDS: cefTRIAXone SOD 1 GM in D5W MINI-BAG PLUS 50 ML IV SCH (23:46)
[2020-12-27] MEDS: MORPHINE 4 MG/ML 1ML VIAL/SYRINGE (J2270) IV PRN ×2 (03:01→07:01)
[2020-12-27 06:00] VITALS: BP 112/63
[2020-12-27 06:23] LABS: HEMATOCRIT 28.1 % (36.0-47.0); HEMOGLOBIN 8.9 g/dl (12.0-15.5); MEAN CORPUSCULAR HEMOGLOBIN 34.9 pg (27.0-33.0); MEAN CORPUSCULAR HGB CONC 31.7 g/dl (32.0-36.5); MEAN CORPUSCULAR VOLUME 110.2 fl (80.0-96.0); RED BLOOD COUNT 2.55 10^6/uL (4.00-5.40); WHITE BLOOD COUNT 6.9 10^3/uL (4.0-10.0)
[2020-12-27 06:28] LABS: PLATELET COUNT, AUTOMATED 50 10^3/uL (150-450)
[2020-12-27 06:33] LABS: INR 2.03; PROTHROMBIN TIME 23.4 SECONDS (12.7-14.5)
[2020-12-27 06:41] LABS: ALBUMIN 2.2 GM/DL (3.2-5.2); ALT/SGPT 34 U/L (12-78); BILIRUBIN,TOTAL 8.7 MG/DL (0.2-1.0); BLOOD UREA NITROGEN 6 MG/DL (7-18); CALCIUM LEVEL 8.2 MG/DL (8.5-10.1); CARBON DIOXIDE LEVEL 25 MEQ/L (21-32); CHLORIDE LEVEL 108 MEQ/L (98-107); CREATININE FOR GFR 0.55 MG/DL (0.55-1.30); GLOMERULAR FILTRATION RATE > 60.0 (>60); GLUCOSE, FASTING 114 MG/DL (70-100); MAGNESIUM LEVEL 1.6 MG/DL (1.8-2.4); POTASSIUM SERUM 3.6 MEQ/L (3.5-5.1); SODIUM LEVEL 141 MEQ/L (136-145); TOTAL PROTEIN 6.5 GM/DL (6.4-8.2)
[2020-12-27] MEDS: LACTULOSE 20 GM/30 ML SYRUP UD PO SCH (08:56)
[2020-12-27] MEDS: FUROSEMIDE 20 MG TAB PO SCH (08:56)
[2020-12-27] MEDS: DOCUSATE SODIUM 100MG CAPSULE PO SCH (08:57)
[2020-12-27] MEDS: PANTOPRAZOLE 40MG VIAL (C9113 PER 1) IV SCH (08:57)
[2020-12-27] MEDS: THIAMINE 100 MG TAB PO SCH (08:57)
[2020-12-27] MEDS: SUCRALFATE 1 GM TAB PO SCH (08:57)
[2020-12-27] MEDS: PHYTONADIONE 5 MG TAB PO SCH (08:57)
[2020-12-27] MEDS: SPIRONOLACTONE 25 MG TAB PO SCH (08:57)
[2020-12-27] MEDS: FOLIC ACID 1 MG TAB PO SCH (08:57)
[2020-12-27] MEDS ORDERED: ACAMPROSATE CALCIUM 333 MG TABLET (CAMPRAL) PO SCH (09:00)
[2020-12-27] MEDS ORDERED: ACAM0.05 PO (09:08)
[2020-12-27] MEDS ORDERED: MEDR32TA PO (09:08)
[2020-12-27] MEDS ORDERED: OXYC-517 PO (09:08)
[2020-12-27] MEDS ORDERED: oxyCODONE 5MG TAB PO PRN (10:25)
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
--- NOTE | 2020-12-27 15:15 | ECGEPIP ---
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 Nonspecific ST-T abnormality [place] QT compared with 12/24/2020. Electronically Signed on 12-27-2020 15:15:01 EDT by Diogo Rey
== END 2020-12-27 11:55 | disposition home or self-care (01) | DRG 280 ==
LOC: EDBD 14:01 → M ED 14:01 → M ED INP 12-25 00:04 → UNDOADMIN 12-25 00:04 → ENRESERV 12-25 04:38 → M ED INP 12-25 06:05 → M MSPAV 12-25 06:05
PROVIDERS: ADMIT Family Medicine; ATTEND Family Medicine
PROC: 0W9G3ZZ Drainage of Peritoneal Cavity, Percutaneous Approach (ICD-10-PCS; principal; 2020-12-25 12:18)
DX: K70.31 Alcoholic cirrhosis of liver with ascites (principal); D64.9 Anemia, unspecified; K70.11 Alcoholic hepatitis with ascites; F10.20 Alcohol dependence, uncomplicated; K42.9 Umbilical hernia without obstruction or gangrene; Z79.899 Other long term (current) drug therapy; Z88.8 Allergy status to other drugs, medicaments and biological substances; Z90.49 Acquired absence of other specified parts of digestive tract; Z98.84 Bariatric surgery status; Z87.81 Personal history of (healed) traumatic fracture

== ENCOUNTER → 2020-12-31 | Outpatient (REF) | payer OTHER ==
[~2020-12-31] MED LIST changes: +ACAM0.05 PO; +D31000TA2 PO; +MEDR32TA PO; +OXYC-517 PO; +PANT-23 PO; +PHYT5TA PO; +SPIR-10 PO; +SUPE5000 PO; +THIA100T22 PO
[2020-12-31 17:30] LABS: BASO % 0.2 % (0.0-1.0); EOS % 0.4 % (0.0-3.0); HEMOGLOBIN 10.6 g/dl (12.0-15.5); LYMPH # 0.5 10^3/uL (1.5-5.0); LYMPH % 6.4 % (24.0-44.0); MEAN CORPUSCULAR HEMOGLOBIN 35.2 pg (27.0-33.0); MEAN CORPUSCULAR HGB CONC 32.1 g/dl (32.0-36.5); MEAN CORPUSCULAR VOLUME 109.6 fl (80.0-96.0); MONO # 0.4 10^3/uL (0.0-0.8); MONO % 4.7 % (2.0-8.0); NEUTROPHILS # 7.3 10^3/uL (1.5-8.5); NEUTROPHILS % 87.6 % (36.0-66.0); RED BLOOD COUNT 3.01 10^6/uL (4.00-5.40); WHITE BLOOD COUNT 8.3 10^3/uL (4.0-10.0)
[2020-12-31 17:36] LABS: PLATELET COUNT, AUTOMATED 55 10^3/uL (150-450)
[2020-12-31 18:15] LABS: ALBUMIN 2.6 GM/DL (3.2-5.2); ALT/SGPT 46 U/L (12-78); BILIRUBIN,TOTAL 12.8 MG/DL (0.2-1.0); BLOOD UREA NITROGEN 8 MG/DL (7-18); CARBON DIOXIDE LEVEL 27 MEQ/L (21-32); CHLORIDE LEVEL 105 MEQ/L (98-107); CREATININE FOR GFR 0.67 MG/DL (0.55-1.30); GLOMERULAR FILTRATION RATE > 60.0 (>60); GLUCOSE, FASTING 167 MG/DL (70-100); MAGNESIUM LEVEL 1.8 MG/DL (1.8-2.4); POTASSIUM SERUM 3.1 MEQ/L (3.5-5.1); SODIUM LEVEL 141 MEQ/L (136-145); TOTAL PROTEIN 7.2 GM/DL (6.4-8.2)
[2020-12-31 18:37] LABS: HEPATITIS B SURFACE ANTIGEN NEGATIVE (NEGATIVE)
[2020-12-31 19:03] LABS: HEPATITIS C VIRUS ABY INDEX 0.2 INDEX (<0.8)
[2020-12-31 19:04] LABS: HEPATITIS B CORE ANTIBODY IGM NEGATIVE (NEGATIVE)
[2020-12-31 19:06] LABS: HEPATITIS A ANTIBODY IGM NEGATIVE (NEGATIVE)
== END ==
LOC: M SFHCADAM 13:57
PROVIDERS: ATTEND Physician Assistant
DX: M54.50 Low back pain, unspecified (principal); G89.29 Other chronic pain; K70.31 Alcoholic cirrhosis of liver with ascites

== ENCOUNTER 2021-01-18 06:57 | Emergency (ER) | payer OTHER ==
[~2021-01-18] VITALS: Ht 162.6 cm; Wt 73.7 kg
--- OUTSIDE RECORDS SUMMARY | 2021-01-18 07:03 | CCD ---
Author Author [facility] Organization [facility] Address Unknown Phone Unavailable Care Team Providers Care Truck Sales Representative Name Role Phone Kerri Ocampo Unavailable PROBLEMS Type Condition ICD9-CM Code OPS40-UO Code Onset Dates Condition S tatus W/U Status Risk SNOMED Code Notes Problem Alcoholic cirrhosis of liver with ascites K70.31 Active confirmed 010966106 Problem Chronic pain syndrome G89.4 Active confirmed 907569600 Problem Other chronic pain G89.29 Active confirmed 8 2084720 Problem Anemia in other chronic diseases classified elsewhere D63.8 Active confirmed 318205403 Problem Alcohol abuse F10.10 Active confirmed 906038 05 ALLERGIES Allergen (clinical drug ingredient) Drug/Non Drug Allergy do cumented on EMR Reaction Allergy Type Onset Date Status prednisolone Prednisolone Hives Drug Allergy Active ENCOUNTERS from 1982 to 2021-01-09 Encounter Location Date Provider Diagnosis [address] [place] [address] Dec, 2020 Kerri Ocampo Alcoholic cirrhosis of liver with ascite s K70.31 ; Hyperglycemia R73.9 ; Hypokalemia E87.6 ; Increased ammonia level R79.89 ; Chronic pain syndrome G89.4 ; Low back pain, unspecified M54.50 and Other chronic pain G89.29 IMMUNIZATIONS No Information SOCIAL HISTORY Tobacco Use: Social History Observation Description Date Details (start date - stop date) Never Smoker Sex Assigned At : Social History Observation Description Sex Assigned At Unknown Audit Question Answer Notes Total Score: 9 Interpretation: Simple Advice Language: Question Answer Notes Languages spoken: [place] Domestic Violence: Question Answer Notes Status: Drug and Alcohol Question Answer Notes Total Score: 0 Interpretation: No problems reported Tobacco Use: Question Answer Notes Are you a: never smoker REASON FOR REFERRAL No Information VITAL SIGNS Weight 153.8 lbs Dec, Height 5'4" in Dec, BMI 26.40 kg/m2 Dec, Heart Rate 124 /min Dec, Respiratory Rate 18 /min Dec, Temperature 99 degrees Fahrenheit Dec, Oximetry 100 Dec, Blood pressure systolic 120 mm Hg Dec, Blood pressure diastolic 70 mm Hg Dec, MEDICATIONS Medication SIG (Take, Route, Frequency, Duration) Notes Start Da te End Date Status Ergocalciferol 50 MCG (1999) 1 tablet Orally Once a day for 30 day (s) Active Panax Ginseng Active Pantoprazole Sodium 40 MG 1 tablet Orally Once a day for 30 day(s) Active Levonorgestrel 20 MCG/24HR as directed Intrauterine Nov Active Lactulose 20 GM/30ML 15 ml Orally twice a day for 30 days Active Vitamin B-1 100 MG 1 tablet Orally Once a day for 30 day(s) Active Thiamine Active Lasix 20 MG 1 tablet Orally Once a day Active Acamprosate Calcium 333 MG 2 tablets Orally Three times a day for 3 0 day(s) Active Spironolactone 25 MG 1 tablet Orally twice a day for 30 days Active Biotin 5000 MCG 1 capsule Orally Once a day for 30 day(s) Active methylPREDNISolone 16 MG 1 tablet Orally every 12 hrs for 26 days Active oxyCODONE HCl 5 MG 1 tablet as needed Orally Da omkar as needed MDD = 1 for 10 day(s) Dec, Active PROCEDURES No Information RESULTS No Results REASON FOR VISIT 01 week follow up/ Okay by Dr. 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 - Then went on to have Gastric bypass Rou-en-Y with partial small bowel resection Surgical History gall bladder age 20 Surgical History kidney stone Surgical History endometriosis Surgical History ovarian cyst Surgical History appendectomy Surgical History gastric bypass Surgical History gastric sleeve - Surgical History fracture repair-right ankle 2017 Hospitalization History liver failure 11/2020 Goals Section No Information Health Concerns No Information MEDICAL EQUIPMENT No Information MENTAL STATUS No Information FUNCTIONAL STATUS No Information ASSESSMENTS Encounter Date Diagnosis Assessment Notes Treatment Notes Treatm ent Clinical Notes Dec, Alcoholic cirrhosis of liver with ascites (ICD-1 0 - K70.31) She has not eben from GI yet - wel sill look into the stat referral Ammonia level remains elevated but better than in hospital. Toelrating once a day dosing without significant diarrhea. Increase Lactulose to BID Dec, Hyperglycemia (ICD-10 - R73.9) Non-fasting glucose was 167 - check HbA1c Dec, Hypokalemia (ICD-10 - E87.6) Increase Spironolactone to BID Dec, Increased ammonia level (ICD-10 - R79.89) Dec, Chronic pain syndrome (ICD-10 - G89.4) Dec, Low back pain, unspecified (ICD-10 - M54.50) Taking Oxycodone only at bedtime for her low back pain. Sleeping on a cot right now and hoping that when she gets her new matress her back will improve. Hoping ot move into her new apt by 01/08. Her abd pain is not an issues. She feels as though her abdomen is a little more swollen by the end of the day so we will increase her Spironolactone Dec, Other chronic pain (ICD-10 - G89.29) Dec, Other Return to work 01/12 per patient request COVID vaccine recommended Flu vaccine recommended Will need Hep B series as well PLAN OF TREATMENT Medication Medication Name Sig Start Date Stop Date Lasix 20 MG 1 tablet Orally Once a day Lactulose 20 GM/30ML 15 ml Orally twice a day for 30 days Spironolactone 25 MG 1 tablet Orally twice a day for 30 days oxyCODONE HCl 5 MG 1 tablet as needed Orally Da omkar as needed MDD = 1 for 10 day(s) Dec, Treatment Notes Assessment Notes Clinical Notes Alcoholic cirrhosis of liver with ascites She has not eben from GI yet - wel sill look into the stat referralAmmonia level remains elevated but better than in hospital. Toelrating once a day dosing without significant diarrhea. Increase Lactulose to BID Hyperglycemia Non-fasting glucose was 167 - check HbA1c Hypokalemia Increase Spironolact one to BID Low back pain, unspecified Taking Oxycod one only at bedtime for her low back pain. Sleeping on a cot right now and hoping that when she gets her new matress her back will improve. Hoping ot move into her new apt by 01/08. Her abd pain is not an issues. She feels as though her abdomen is a little more swollen by the end of the day so we will increase her Spironolactone Future Test Test Name Order Date AMMONIA 20210112 Basic Metabolic Profile (BMP) 20210112 HEMOGLOBIN A1c 20210112 Next Appt Details labs in 1 week, f/u 4 weeks Reason: Provider Name:Kerri Ocampo, 2021-01 04:15:00 PM, [address], , [place], [id number], Insurance Providers Payer Name Payer Address Payer Phone Insured Name Patient Relati onship to Insured Coverage Start Date Coverage End Date [employer] DEPT [address] [facility] [phone] ELVIRA MENDIOLA self
--- OUTSIDE RECORDS SUMMARY | 2021-01-18 07:03 | CCD ---
Author Author [facility] Organization [facility] Address Unknown Phone Unavailable Care Team Providers Care Management Development Specialist Name Role Phone Terrence Kerri Unavailable PROBLEMS Type Condition ICD9-CM Code GDH02-OW Code Onset Dates Condition S tatus W/U Status Risk SNOMED Code Notes Problem Alcoholic cirrhosis of liver with ascites K70.31 Active confirmed 242516795 Problem Chronic pain syndrome G89.4 Active confirmed 696065413 Problem Other chronic pain G89.29 Active confirmed 8 1188143 Problem Anemia in other chronic diseases classified elsewhere D63.8 Active confirmed 861245168 Problem Alcohol abuse F10.10 Active confirmed 375187 05 ALLERGIES Allergen (clinical drug ingredient) Drug/Non Drug Allergy do cumented on EMR Reaction Allergy Type Onset Date Status prednisolone Prednisolone Hives Drug Allergy Active ENCOUNTERS from 1982 to 2021-01-12 Encounter Location Date Provider Diagnosis [address] [place] [address] Dec, Kerri Ocampo IMMUNIZATIONS No Information SOCIAL HISTORY Tobacco Use: Social History Observation Description Date Details (start date - stop date) Never Smoker Sex Assigned At : Social History Observation Description Sex Assigned At Unknown Audit Question Answer Notes Total Score: 9 Interpretation: Simple Advice Language: Question Answer Notes Languages spoken: Yi Domestic Violence: Question Answer Notes Status: Drug and Alcohol Question Answer Notes Total Score: 0 Interpretation: No problems reported Tobacco Use: Question Answer Notes Are you a: never smoker REASON FOR REFERRAL No Information VITAL SIGNS No information MEDICATIONS Medication SIG (Take, Route, Frequency, Duration) Notes Start Da te End Date Status Ergocalciferol 50 MCG (1999) 1 tablet Orally Once a day for 30 day (s) Active Panax Ginseng Active Pantoprazole Sodium 40 MG 1 tablet Orally Once a day for 30 day(s) Active Levonorgestrel 20 MCG/24HR as directed Intrauterine 25 Nov Active Lactulose 20 GM/30ML 15 ml [...] Information RESULTS No Results REASON FOR VISIT lost work note MEDICAL (GENERAL) HISTORY Type Description Date Medical [...] sleeve - Surgical History fracture repair-right ankle 2018 Hospitalization History liver failure 11/2020 Goals Section No Information Health Concerns No Information MEDICAL EQUIPMENT No Information MENTAL STATUS No Information FUNCTIONAL STATUS No Information ASSESSMENTS No Information PLAN OF TREATMENT Medication Medication Name Sig [...] MDD = 1 for 10 day(s) Dec, Next Appt Details Provider Name:Kerri Ocampo, 2021-01 - 04:15:00 PM, [address] , [place], [id number], Insurance Providers Payer Name Payer Address Payer Phone Insured Name Patient Relati onship to Insured Coverage Start Date Coverage End Date [facility] [employer] CLAIMS DEPT [address] [place] [phone] ELVIRA MENDIOLA self
--- OUTSIDE RECORDS SUMMARY | 2021-01-18 07:03 | CCD ---
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 Name Role Phone Kerri Ocampo Unavailable PROBLEMS Type Condition ICD9-CM Code [id number] Code Onset Dates Condition S tatus W/U Status Risk SNOMED Code Notes Problem Other chronic pain G89.29 Active confirmed 8 [id number] Problem Anemia in other chronic diseases classified elsewhere D63.8 Active confirmed [id number] Problem Alcohol abuse F10.10 Active confirmed 200250 05 Problem Alcoholic cirrhosis of liver with ascites K70.31 Active confirmed 877622997 ALLERGIES Allergen (clinical drug ingredient) Drug/Non Drug Allergy do cumented on EMR Reaction Allergy Type Onset Date Status prednisolone Prednisolone Hives Drug Allergy Active ENCOUNTERS from 1982 to 2021-01-04 Encounter Location Date Provider Diagnosis [address] [place] [address] Dec, Kerri Ocampo Low back pain, unspecified M54.50 ; Alco holic cirrhosis of liver with ascites K70.31 ; Other chronic pain G89.29 ; Alcohol abuse F10.10 and Anemia in other chronic diseases classified elsewhere D63.8 IMMUNIZATIONS No Information SOCIAL HISTORY Tobacco Use: Social History Observation Description Date Details (start date - stop date) Never Smoker Sex Assigned At : Social History Observation Description Sex Assigned At Unknown Audit Question Answer Notes Total Score: 9 Interpretation: Simple Advice Language: Question Answer Notes Languages spoken: Tajik Domestic Violence: Question Answer Notes Status: Drug and Alcohol Question Answer Notes Total Score: 0 Interpretation: No problems reported Tobacco Use: Question Answer Notes Are you a: never smoker REASON FOR REFERRAL from 1982 to 2021-01-04 Reason Alcoholic cirrhosis, portal HTN gastric bypass surgery 5 years ago, Ascits requiring paracentesisi, Meld score 23 and child Garcia Class C|Will likely need liver transplant Diagnosis 1 Alcoholic cirrhosis of liver with ascites (K70.31) Referral Organization [facility] Referring Provider First Name Kerri Referring Provider Last Name Terrence Referring Provider Specialty Family Medicine Referred Provider Isacc Blackman (SMP) Referred Provider Specialty Gastroenterology Referral Priority Stat General Notes [facility]12/29/2020 5:23:05 PM > faxed Reason Chronic low back pain. Cesilia ent with cirrhosis related to ETOH abuse. Was using excessive amounts of Tylenol to manage pain. Will need to be evalauted to find safe way to manage pain Diagnosis 1 Low back pain, unspecified ( M54.50) Referral Organization [facility] Referring Provider First Name Kerri Referring Provider Last Name Terrence Referring Provider Specialty Family Medicine Referred Organization [facility] Referred Provider Homero Ceja Referred Address [address] [place] [address],[phone],[place], [place],[address] Referred Provider Specialty Pain Medicine Referral Priority Routine VITAL SIGNS Weight 145 lbs Dec, Height 5'4" in Dec, BMI 24.89 kg/m2 Dec, Heart Rate 103 /min Dec, Respiratory Rate 18 /min Dec, Temperature 98.2 degrees Fahrenheit Dec, Oximetry 100 Dec, Blood pressure systolic 130 mm Hg Dec, Blood pressure diastolic 80 mm Hg Dec, MEDICATIONS Medication SIG (Take, Route, Frequency, Duration) Notes Start Da te End Date Status Vitamin B-1 100 MG 1 tablet Orally Once a day for 30 day(s) Active Pantoprazole Sodium 40 MG 1 tablet Orally Once a day for 30 day(s) Active methylPREDNISolone 16 MG 1 tablet Orally every 12 hrs for 26 days Active Levonorgestrel 20 MCG/24HR as directed Intrauterine Nov Active Ergocalciferol 50 MCG (2000 UT) 1 tablet Orally Once a day for 30 day (s) Active Thiamine Active Lasix 20 MG 1 tablet Orally Once a day for 30 day(s) Active Acamprosate Calcium 333 MG 2 tablets Orally Three times a day for 3 0 day(s) Active Spironolactone 25 MG 1 tablet Orally Once a day for 30 day(s) Active Lactulose 20 GM/30ML 15 ml Orally Once a day for 30 day(s) Active Panax Ginseng Active Biotin 5000 MCG 1 capsule Orally Once a day for 30 day(s) Active oxyCODONE HCl 5 MG 1 tablet as needed Orally tw ice a day as needed MDD = 2 for 5 days Dec, Active PROCEDURES No Information RESULTS No Results REASON FOR VISIT [employer] mTCM 7 [facility] d/c 12/19 Decompensation of cirrhosis of liver MEDICAL (GENERAL) HISTORY Type Description Date Medical [...] Treatment Notes Treatm ent Clinical Notes Dec, Low back pain, unspecified (ICD-10 - M54.50) Challenging situation - was taking Tylenol 1000 mg every 4 hours for years to manage chronic back pain. Appently had some leg numbness that poccurred after an injection in the past and so she is reluctant to get any further injections. I explained that the oxycontin refill today is to help mange her abdominal pain related to her ascites and recent pareacentesis and that I don't intend to refill this. We will need to have her see a pain clinic to mange her chronic back issues in a safe way considering her cirrhosis, her options are limited. Risk of abuse and dependence fromt he oxy discussed. My expectation is that she is to use this only for severe pain. Dec, Alcoholic cirrhosis of liver with ascites (ICD-1 0 - K70.31) Dec, Other chronic pain (ICD-10 - G89.29) Dec, Alcohol abuse (ICD-10 - F10.10) Dec, Anemia in other chronic dise ases classified elsewhere (ICD-10 - D63.8) PLAN OF TREATMENT Medication Medication Name Sig Start Date Stop Date Pantoprazole Sodium 40 MG 1 tablet Orally Once a day for 30 day( s) methylPREDNISolone 16 MG 1 tablet Orally every 12 hrs for 26 day s oxyCODONE HCl 5 MG 1 tablet as needed Orally tw ice a day as needed MDD = 2 for 5 days Dec, Acamprosate Calcium 333 MG 2 tablets Orally Three times a day fo r 30 day(s) Vitamin B-1 100 MG 1 tablet Orally Once a day for 30 day(s) Lactulose 20 GM/30ML 15 ml Orally Once a day for 30 day(s) Spironolactone 25 MG 1 tablet Orally Once a day for 30 day(s) Lasix 20 MG 1 tablet Orally Once a day for 30 day(s) Treatment Notes Assessment Notes Clinical Notes Low back pain, unspecified Challenging s ituation - was taking Tylenol 1000 mg every 4 hours for years to manage chronic back pain. Appently had some leg numbness that poccurred after an injection in the past and so she is reluctant to get any further injections. I explained that the oxycontin refill today is to help mange her abdominal pain related to her ascites and recent pareacentesis and that I don't intend to refill this. We will need to have her see a pain clinic to mange her chronic back issues in a safe way considering her cirrhosis, her options are limited. Risk of abuse and dependence fromt he oxy discussed. Tony dejesus expectation is that she is to use this only for severe pain. Treatment Notes Test Name Order Date Comprehensive Metabolic Profile (CMP) 2020-12-31 AM[facility] 2020-12-31 ANTI-MITOCHONDRIAL ANTIBODY 2020-12-31 Referrals Referral Date Details Alcoholic cirrhosis, portal HTN gastric bypass surgery 5 years ago, Ascits requiring paracentesisi, Meld score 23 and child Garcia Class C|Will likely need liver transplant, Isacc Blackman (JEFFP) Chronic low back pain. Cesilia ent with cirrhosis related to ETOH abuse. Was using excessive amounts of Tylenol to manage pain. Will need to be evalauted to find safe way to manage pain, Homero Ceja, [address], [place], [address], Next Appt Details 1 Week, labs prior Reason: Provider Name:Kerri Ocampo, 2020-12 09:30:00 AM, [address], , [place], [address], Insurance Providers Payer Name Payer Address Payer Phone Insured Name Patient Relati onship to Insured Coverage Start Date Coverage End Date [facility] [employer]POR[employer] CLAIMS DEPT [address] [employer] [phone] ELVIRA MENDIOLA self
--- OUTSIDE RECORDS SUMMARY | 2021-01-18 07:04 | CCD ---
Author Author [facility] Organization [facility] Address Unknown Phone Unavailable Care Team Providers Care Rivet Flunky Name Role Phone Terrence Kerri Unavailable PROBLEMS Type Condition ICD9-CM Code [id number] Code Onset Dates Condition S tatus W/U Status Risk SNOMED Code Notes Problem Other chronic pain G89.29 Active confirmed 8 2452924 Problem Anemia in other chronic diseases classified elsewhere D63.8 Active confirmed 268033434 Problem Alcohol abuse F10.10 Active confirmed 245856 05 Problem Alcoholic cirrhosis of liver with ascites K70.31 Active confirmed 872988219 ALLERGIES Allergen (clinical drug ingredient) Drug/Non Drug Allergy do cumented on EMR Reaction Allergy Type Onset Date Status prednisolone Prednisolone Hives Drug Allergy Active ENCOUNTERS from 1982 to 2020-12-31 Encounter Location Date Provider Diagnosis [id number] [place] [address] Dec, Kerri Ocampo Low back pain, unspecified M54.50 IMMUNIZATIONS No Information SOCIAL HISTORY Tobacco Use: Social History Observation Description Date Details (start date - stop date) Never Smoker Sex Assigned At : Social History Observation Description Sex Assigned At Unknown Audit Question Answer Notes Total Score: 9 Interpretation: Simple Advice Language: Question Answer Notes Languages spoken: Yoruba Domestic Violence: Question Answer Notes Status: Drug [...] MCG/24HR as directed Intrauterine 25 Nov Active Ergocalciferol 50 MCG (2000 UT) [...] Information RESULTS No Results REASON FOR VISIT Refills-oxyCODONE HCl 5 MG MEDICAL (GENERAL) HISTORY Type Description Date Medical [...] Low back pain, unspecified (ICD-10 - M54.50) PLAN OF TREATMENT Medication Medication Name Sig [...] Orally Once a day for 30 day(s) Next Appt Details Provider Name:Kerri Ocampo, 2020-12 - 09:30:00 AM, [address] , [place], [address], Insurance Providers Payer Name Payer Address Payer Phone Insured Name Patient Relati onship to Insured Coverage Start Date Coverage End Date [facility]POR[facility] CLAIMS DEPT [address] [facility] [phone] ELVIRA MENDIOLA self
--- OUTSIDE RECORDS SUMMARY | 2021-01-18 07:04 | CCD ---
Author Author [facility] Organization [facility] Address Unknown Phone Unavailable Support Name Relationship Address Phone NONE, NONE Next Of Kin [address] [place] [address] [place] [employer] Next Of Kin [address] [place] [address] DASHNAW, COURTNEY Next Of Kin [address] [place] [address] [place] [address] Dom Boss Next Of Kin Unknown Unavailable Dick Franklin Next Of Kin [address] [address] Unavailable LITTLE MONKEYS 123 Next Of Kin [address] [place] [address] JESÚS [place] [place] [address] JESÚS PRYOR Next Of Kin [address] [facility] [address] [place] [address] DAWNA CHEN Next Of Kin [address] [address] [place] Next Of Kin - -, [place] - - JESÚS ANGEL Next Of Kin [address] [facility] [address] [place] [address] UE Next Of Kin Unknown Unavailable CHRISTINA MENDIOLA Next Of Kin [address] [place] [address] Beau Gallegos Next Of Kin [address] [place] [address] [place] Next Of Kin [address] [address] [place]IO [place] [address] OME Next Of Kin [address] [place] [address] CHASITY Next Of Kin [address] [place] [address] UN Next Of Kin Unknown Unavailable [place] [address] none, none ECON [address] [place] [address] Francisco FULLER ECON [address] [place] [address] Unavailable Dom Boss ECON [address] [facility] [address] [place] [address] Unavailable Dawna Franklin ECON [address] [place] [address] Unavailable Sergei Angel ECON [address] [place] [address] Unavailable Care Team Providers Care Reinsurance Accountant Name Role Phone Luz JUAN MD Unavailable Unavailable Luz JUAN MD Unavailable Unavailable Luz JUAN MD Unavailable Unavailable Luz JUAN MD Unavailable Unavailable Luz JUAN MD Unavailable Unavailable Luz JUAN MD Unavailable Unavailable Luz JUAN MD Unavailable Unavailable Luz JUAN MD Unavailable Unavailable Luz JUAN MD Unavailable Unavailable Luz JUAN MD Unavailable Unavailable Luz JUAN MD Unavailable Unavailable Luz JUAN MD Unavailable Unavailable Luz JUAN MD Unavailable Unavailable Luz JUAN MD Unavailable Unavailable Luz JUAN MD Unavailable Unavailable Luz JUAN MD Unavailable Unavailable Luz JUAN MD Unavailable Unavailable Luz JUAN MD Unavailable Unavailable Luz JUAN MD Unavailable Unavailable Luz JUAN MD Unavailable Unavailable Luz JUAN MD Unavailable Unavailable Luz JUAN MD Unavailable Unavailable Luz JUAN MD Unavailable Unavailable Luz JUAN MD Unavailable Unavailable Luz JUAN MD Unavailable Unavailable Luz JUAN MD Unavailable Unavailable Luz JUAN MD Unavailable Unavailable Luz JUAN MD Unavailable Unavailable Luz JUAN MD Unavailable Unavailable Luz JUAN MD Unavailable Unavailable Luz JUAN MD Unavailable Unavailable Luz JUAN MD Unavailable Unavailable Luz JUAN MD Unavailable Unavailable DRAKE, Luz KIM MD Unavailable Unavailable DRAKE, Luz KIM MD Unavailable Unavailable DRAKE, Luz KIM MD Unavailable Unavailable DRAKE, Luz KIM MD Unavailable Unavailable DRAKE, Luz KIM MD Unavailable Unavailable DRAKE, Luz KIM MD Unavailable Unavailable DRAKE, Luz KIM MD Unavailable Unavailable DRAKE, Luz KIM MD Unavailable Unavailable DRAKE, Luz KIM MD Unavailable Unavailable DRAKE, Luz KIM MD Unavailable Unavailable DRAKE, Luz KIM MD Unavailable Unavailable DRAKE, Luz KIM MD Unavailable Unavailable DRAKE, Luz KIM MD Unavailable Unavailable DRAKE, Luz KIM MD Unavailable Unavailable DRAKE, Luz KIM MD Unavailable Unavailable DRAKE, Luz KIM MD Unavailable Unavailable DRAKE, Luz KIM MD Unavailable Unavailable DRAKE, Luz KIM MD Unavailable Unavailable DRAKE, Luz KIM MD Unavailable Unavailable DRAKE, Luz KIM MD Unavailable Unavailable DRAKE, Luz KIM MD Unavailable Unavailable DRAKE, Luz KIM MD Unavailable Unavailable DRAKE, Luz KIM MD Unavailable Unavailable DRAKE, Luz KIM MD Unavailable Unavailable DRAKE, Luz KIM MD Unavailable Unavailable DRAKE, Luz KIM MD Unavailable Unavailable DRAKE, Luz KIM MD Unavailable Unavailable DRAKE, Luz KIM MD Unavailable Unavailable DRAKE, Luz KIM MD Unavailable Unavailable DRAKE, Luz KIM MD Unavailable Unavailable DRAKE, Lzu KIM MD Unavailable Unavailable DRAKE, Luz KIM MD Unavailable Unavailable DRAKE, Luz KIM MD Unavailable Unavailable DRAKE, Luz KIM MD Unavailable Unavailable DRAKE, Luz KIM MD Unavailable Unavailable DRAKE, Luz KIM MD Unavailable Unavailable DRAKE, Luz KIM MD Unavailable Unavailable DRAKE, Luz KIM MD Unavailable Unavailable DRAKE, Luz KIM MD Unavailable Unavailable DRAKE, Luz KIM MD Unavailable Unavailable DRAKE, Luz KIM MD Unavailable Unavailable DRAKE, Luz KIM MD Unavailable Unavailable DRAKE, Luz KIM MD Unavailable Unavailable DRAKE, Luz KIM MD Unavailable Unavailable DRAKE, Luz KIM MD Unavailable Unavailable DRAKE, Luz KIM MD Unavailable Unavailable DRAKE, Luz KIM MD Unavailable Unavailable DRAKE, Luz KIM MD Unavailable Unavailable DRAKE, Luz KIM MD Unavailable Unavailable DRAKE, Luz KIM MD Unavailable Unavailable DRAKE, Luz KIM MD Unavailable Unavailable DRAKE, Luz KIM MD Unavailable Unavailable DRAKE, Luz KIM MD Unavailable Unavailable DRAKE, Luz KIM MD Unavailable Unavailable DRAKE, Luz KIM MD Unavailable Unavailable DRAKE, Luz KIM MD Unavailable Unavailable DRAKE, Luz KIM MD Unavailable Unavailable DRAKE, Luz KIM MD Unavailable Unavailable Rosario, E Yoana ADMINISTRATIVE SUPERVISOR Unavailable Unavailable Rosario, E Yoana ADMINISTRATIVE SUPERVISOR Unavailable Unavailable Rosario, E Yoana ADMINISTRATIVE SUPERVISOR Unavailable Unavailable Rosario, E Yoana ADMINISTRATIVE SUPERVISOR Unavailable Unavailable Rosario, E Yoana ADMINISTRATIVE SUPERVISOR Unavailable Unavailable Rosario, E Yoana ADMINISTRATIVE SUPERVISOR Unavailable Unavailable Rosario, E Yoana ADMINISTRATIVE SUPERVISOR Unavailable Unavailable Roasrio, E Yoana ADMINISTRATIVE SUPERVISOR Unavailable Unavailable Rosario, E Yoana ADMINISTRATIVE SUPERVISOR Unavailable Unavailable Rosario, E Yoana ADMINISTRATIVE SUPERVISOR Unavailable Unavailable Rosario, E Yoana ADMINISTRATIVE SUPERVISOR Unavailable Unavailable Rosario, E Yoana ADMINISTRATIVE SUPERVISOR Unavailable Unavailable Rosario, E Yoana ADMINISTRATIVE SUPERVISOR Unavailable Unavailable Rosario, E Yoana ADMINISTRATIVE SUPERVISOR Unavailable Unavailable Rosario, E Yoana ADMINISTRATIVE SUPERVISOR Unavailable Unavailable Rosario, E Yoana ADMINISTRATIVE SUPERVISOR Unavailable Unavailable Rosario, E Yoana ADMINISTRATIVE SUPERVISOR Unavailable Unavailable Rosario, E Yoana ADMINISTRATIVE SUPERVISOR Unavailable Unavailable Rosario, E Yoana ADMINISTRATIVE SUPERVISOR Unavailable Unavailable Rosario, E Yoana ADMINISTRATIVE SUPERVISOR Unavailable Unavailable Rosario, E Yoana ADMINISTRATIVE SUPERVISOR Unavailable Unavailable Rosario, E Yoana ADMINISTRATIVE SUPERVISOR Unavailable Unavailable Rosario, E Yoana ADMINISTRATIVE SUPERVISOR Unavailable Unavailable Rosario, E Yoana ADMINISTRATIVE SUPERVISOR Unavailable Unavailable Rosario, E Yoana ADMINISTRATIVE SUPERVISOR Unavailable Unavailable Rosario, E Yoana ADMINISTRATIVE SUPERVISOR Unavailable Unavailable Rosario, E Yoana ADMINISTRATIVE SUPERVISOR Unavailable Unavailable Rosario, E Yoana ADMINISTRATIVE SUPERVISOR Unavailable Unavailable Rosario, E Yoana ADMINISTRATIVE SUPERVISOR Unavailable Unavailable Rosario, E Yoana ADMINISTRATIVE SUPERVISOR Unavailable Unavailable Rosario, E Yoana ADMINISTRATIVE SUPERVISOR Unavailable Unavailable Rosario, E Yoana ADMINISTRATIVE SUPERVISOR Unavailable Unavailable Re-disclosure Warning The records that you are about to access may contain information from federally-assisted alcohol or drug abuse programs. If such information is present, then the following federally mandated warning applies: This information has been disclosed to you from records protected by federal confidentiality rules (42 CFR part 2). The federal rules prohibit you from making any further disclosure of this information unless further disclosure is expressly permitted by the written consent of the person to whom it pertains or as otherwise permitted by 42 CFR part 2. A general authorization for the release of medical or other information is NOT sufficient for this purpose. The Federal rules restrict any use of the information to criminally investigate or prosecute any alcohol or drug abuse patient.The records that you are about to access may contain highly sensitive health information, the redisclosure of which is protected by Article 27-F of the [facility] Public Health law. If you continue you may have access to information: Regarding HIV / AIDS; Provided by facilities licensed or operated by the [facility] Office of Mental Health; or Provided by the [facility] Office for People With Developmental Disabilities. If such information is present, then the following [facility] mandated warning applies: This information has been disclosed to you from confidential records which are protected by state law. State law prohibits you from making any further disclosure of this information without the specific written consent of the person to whom it pertains, or as otherwise permitted by law. Any unauthorized further disclosure in violation of state law may result in a fine or half-way sentence or both. A general authorization for the release of medical or other information is NOT sufficient authorization for further disc losure. Family History Family Member Name Family Member Gender Family Member Status Date o f Status Description Data Source(s) Unknown Condition [facility] Encounters Encounter Providers Location Date Indications Data Source(s ) Unknown [address] [facility] [id number] 01/11/2021 12:00:00 AM EDT eCW1 ([facility]) Outpatient [address] [facility] [id number] 01/05/2021 12:00:00 AM EDT eCW1 ([facility]) Unknown [address] [facility] [address] [id number] 12/31/2020 12:00:00 AM EDT eCW1 ([facility]) Outpatient [address] [facility] [address] [id number] 12/29/2020 12:00:00 AM EDT eCW1 ([facility]) Outpatient 12/10/2020 05:10:48 PM EDT - 021 05:46:17 PM EDT Doc[facility]Tap ([facility]) Recurring Patient Attender: Yoana Rosario NPReferrer: JULIO RUBIO MD 04/14/2020 09:17:07 AM [facility] Medications Medication Brand Name Start Date Product Form Dose Route Admi nistrative Instructions Pharmacy Instructions Status Indications Reaction Description Data Source(s) Oxycodone Hydrochloride 5 MG Oral Tablet oxyCODONE HCl 5 MG oxyCODONE HCl 5 MG 01/05/2021 12:00:00 AM EDT 1.0 {tablet_as_needed} active oxyCODONE HCl 5 MG eCW1 ([facility]) Oxycodone Hydrochloride 5 MG Oral Tablet oxyCODONE HCl 5 MG oxyCODONE HCl 5 MG 01/05/2021 12:00:00 AM EDT 1.0 {tablet_as_needed} active oxyCODONE HCl 5 MG eCW1 ([facility]) Oxycodone Hydrochloride 5 MG Oral Tablet oxyCODONE HCl 5 MG oxyCODONE HCl 5 MG 12/31/2020 12:00:00 AM EDT 1.0 {tablet_as_needed} active oxyCODONE HCl 5 MG eCW1 ([facility]) Oxycodone Hydrochloride 5 MG Oral Tablet oxyCODONE HCl 5 MG oxyCODONE HCl 5 MG 12/31/2020 12:00:00 AM EDT 1.0 {tablet_as_needed} active oxyCODONE HCl 5 MG eCW1 ([facility]) Levonorgestrel 20 MCG/24HR UNK 12/19/2020 12:00:00 AM EDT active Levonorgestrel 20 MCG/24HR eCW1 ([facility]) Levonorgestrel 20 MCG/24HR UNK 12/19/2020 12:00:00 AM EDT active Levonorgestrel 20 MCG/24HR eCW1 ([facility]) Levonorgestrel 20 MCG/24HR UNK 12/19/2020 12:00:00 AM EDT active Levonorgestrel 20 MCG/24HR eCW1 ([facility]) Levonorgestrel 20 MCG/24HR UNK 12/19/2020 12:00:00 AM EDT active Levonorgestrel 20 MCG/24HR eCW1 ([facility]) Insurance Providers Payer name Policy type / Coverage type Policy ID Covered libertarian ID Covered libertarian's relationship to stewart Policy Stewart Plan Information MEDICAID M [id number] Self [id number] OTIS I [id number] Self [id number] [place] Other 0 [id number] Self 0 [place] Other 0 [id number] Self 0 [place] Other 0 [id number] Self 0 [place] Other [id number] Self [place] Other 0 [id number] Self 0 [place] Other 0 [id number] Self 0 [place] Other 0 [id number] Self 0 [place] Other 0 [id number] Self 0 [place] Other 0 [id number] Self 0 [place] Other 0 [id number] Self 0 [place] Other 0 [id number] Self 0 [place] Other 0 [id number] Self 0 [place] Other 0 [id number] Self 0 [place] Other 0 [id number] Self 0 [place] Other 0 [id number] Self 0 OTIS [id number] SP [id number] [place] Other 0 [id number] Self 0 [place] Other 0 [id number] Self 0 [place] [id number] SP [id number] [place] Other 0 [id number] Self 0 OTIS [id number] SP [id number] [place] Other 0 [id number] Self 0 [place] Other 0 [id number] Self 0 [place] Other 0 [id number] Self 0 [place] Other 0 [id number] Self 0 [place] Other 0 [id number] Self 0 [place] Other 0 [id number] Self 0 OTIS [id number] SP [id number] [place] Other 0 [id number] Self 0 [place] Other 0 [id number] Self 0 [place] Other 0 [id number] Self 0 [place] Other 0 [id number] Self 0 OTIS MEDICAID [id number] Ladan 7 [id number] [place] Other 0 [id number] Self 0 [place] Medicaid F [id number] SELF [id number] OTIS [id number] SP [id number] OTIS [id number] SP [id number] OTIS [id number] SP [id number] [place] F [id number] SELF [id number] [place] CARE [place] MED[place] [id number] 0 [id number] OTIS [id number] SP [id number] SELF PAY SELF PAY OTIS [id number] SP [id number] OTIS [id number] SP [id number] SELF PAY OTIS [id number] SP [id number] SELF PAY OTIS [id number] SP [id number] SELF PAY [place] [employer] 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 Insurance [id number] OTIS MEDICAID PI PI OTIS [id number] SP [id number] OTIS [id number] SP [id number] [place] [id number] Commercial Insurance [id number] MEDICAID [id number] SP [id number] OTIS [id number] SP [id number] TRAVELERS [id number] SP [id number] [employer] [id number] 18 [id number] [employer] [id number] 18 [id number] [place] Medicaid [id number] Self TRAVELERS [id number] SP [id number] Problems, Conditions, and Diagnoses Code Display Name Description Problem Type Effective Dates Data Source(s) G89.4 919809261 Chronic pain syndrome Problem 01/05/2021 12: 00:00 AM EDT eCW1 ([facility]) F10.10 [id number] Alcohol abuse Problem 12/29/2020 12:00:00 AM EDT eCW1 ([facility]) D63.8 [id number] Anemia in other chronic diseases classifi ed elsewhere Problem 12/29/2020 12:00:00 AM EDT eCW1 ([facility]) G89.29 [id number] Other chronic pain Problem 12/29/2020 12:00: 00 AM EDT eCW1 ([facility]) K70.31 [id number] Alcoholic cirrhosis of liver with ascites Problem 12/29/2020 12:00:00 AM EDT eCW1 ([facility]) Surgeries/Procedures No Information Results ID Date Data Source [id number] 12/25/2020 02:49:00 AM EDT [facility] Name Value Range Interpretation Code Description Data Rosario rce(s) Supporting Document(s) SARS coronavirus 2 RNA [Presence] in Res piratory specimen by EDISON with probe detection NEGATIVE [facility] This lab was ordered by [facility] a nd reported by [facility]. ID Date Data Source [id number] 12/17/2020 01:08:00 PM EDT [facility] Name Value Range Interpretation Code Description Data Rosario rce(s) Supporting Document(s) SARS coronavirus 2 RNA [Presence] in Res piratory specimen by EDISON with probe detection NEGATIVE [facility] This lab was ordered by [facility] a nd reported by [facility]. ID Date Data Source [id number] 12/10/2020 05:30:00 PM EDT [facility] Name Value Range Interpretation Code Description Data Rosario rce(s) Supporting Document(s) SARS-CoV-2 RNA Resp Ql EDISON+probe NOT DETECTED [facility] This lab was ordered by [facility] and reported by [facility]. Procedure Social History Code Duration Value Status Description Data Source(s ) Smoking 01/05/2021 12:00:00 AM EDT Never Smoker completed Never S moker eCW1 ([facility]) Smoking 01/05/2021 12:00:00 AM EDT Never Smoker completed Never S moker eCW1 ([facility]) Smoking 12/29/2020 12:00:00 AM EDT Never Smoker completed Never Petra moker eCW1 ([facility]) Smoking 12/29/2020 12:00:00 AM EDT Never Smoker completed Never Petra troncosogurwinder eCW1 ([facility]) Vital Signs ID Date Data Source UNK Name Value Range Interpretation Code Description Data Source(s) Body weight 153.8 [lb_av] 153.8 [lb_av] eCW1 ([facility]) Respiratory rate 18 /min 18 /min eCW1 ([facility]) Body height [in_i] eCW1 ([facility]) Body temperature 99 [degF] 99 [degF] eCW1 ([facility]) Systolic blood pressure 120 mm[Hg] 120 mm[Hg] e CW1 ([facility]) Diastolic blood pressure 70 mm[Hg] 70 mm[Hg] eCW1 ([facility]) Body mass index (BMI) [Ratio] 26.40 kg/m2 26.40 kg/m2 eCW1 ([facility] Heart rate 124 /min 124 /min eCW1 ([facility] Heart rate 103 /min 103 /min eCW1 ([facility]) Respiratory rate 18 /min 18 /min eCW1 ([facility]) Body temperature 98.2 [degF] 98.2 [degF] eCW1 ( [facility]) Systolic blood pressure 130 mm[Hg] 130 mm[Hg] e CW1 ([facility]) Diastolic blood pressure 80 mm[Hg] 80 mm[Hg] eCW1 ([facility]) Body mass index (BMI) [Ratio] 24.89 kg/m2 24.89 kg/m2 eCW1 ([facility]) Body weight 145 [lb_av] 145 [lb_av] eCW1 ([facility]) Body height [in_i] eCW1 ([facility]) Patient Treatment Plan of Care Planned Activity Planned Date Details Description Data Source (s) Oxycodone Hydrochloride 5 MG Oral Tablet 01/05/2021 12:00:00 AM EDT eCW1 ([facility]) Oxycodone Hydrochloride 5 MG Oral Tablet 01/05/2021 12:00:00 AM EDT eCW1 ([facility]) Oxycodone Hydrochloride 5 MG Oral Tablet 12/31/2020 12:00:00 AM EDT eCW1 ([facility]) Oxycodone Hydrochloride 5 MG Oral Tablet 12/31/2020 12:00:00 AM EDT eCW1 ([facility])
[2021-01-18] MEDS ORDERED: MORPHINE 4 MG/ML 1ML VIAL/SYRINGE (J2270) IM ONE (08:00)
[2021-01-18 08:29] LABS: HEMATOCRIT 27.9 % (36.0-47.0); HEMOGLOBIN 9.1 g/dl (12.0-15.5); MEAN CORPUSCULAR HGB CONC 32.6 g/dl (32.0-36.5); MEAN CORPUSCULAR VOLUME 110.3 fl (80.0-96.0); RED BLOOD COUNT 2.53 10^6/uL (4.00-5.40); WHITE BLOOD COUNT 8.2 10^3/uL (4.0-10.0)
[2021-01-18 08:31] LABS: PLATELET COUNT, AUTOMATED 38 10^3/uL (150-450)
--- OUTSIDE RECORDS SUMMARY | 2021-01-18 08:37 | CCD ---
Author Author [facility] Organization [facility] Address Unknown Phone Unavailable Support Name Relationship Address Phone NONE, NONE Next Of Kin [address] [facility] [place] [place] [address] [place] [employer] Next Of Kin [address] [place] [address] DASHNAW, COURTNEY Next Of Kin [address] [place] [address] [place] [address] Dom Boss Next Of Kin Unknown Unavailable Dick Franklin Next Of Kin [address] [address] Unavailable LITTLE MONKEYS 123 Next Of Kin [address] [place] [address] JESÚS [place] [place] [address] JESÚS PRYOR Next Of Kin [address] [facility] [address] [place] [address] DAWNA CHEN Next Of Kin [address] [address] [place] Next Of Kin - -, [place] - - JESÚS ANGEL Next Of Kin [address] [facility] [address] [place] [address] UE Next Of Kin Unknown Unavailable CHRISTINA MENDIOLA Next Of Kin [address] [place] [address] Beau Gallegos Next Of Kin [address] [place] [address] [place] Next Of Kin [address] [address] [place] [address] OME Next Of Kin [address] [place] [address] CHASITY Next Of Kin [address] [place] [address] UN Next Of Kin Unknown Unavailable [place] [address] none, none ECON [address] [place] [address] Francisco FULLER ECON [address] [place] [address] Unavailable Dom Boss ECON [address] [facility] [address] [place] [address] Unavailable Dawna Franklin ECON [address] [place] [address] Unavailable Sergei Angel ECON [address] [place] [address] Unavailable Care Team Providers Care Manager Presentation Name Role Phone Luz JUAN MD Unavailable [...] KIM MD Unavailable Unavailable Rosario, E Yoana SUPERVISOR DATA PROCESSING Unavailable Unavailable Rosario, E Yoana SUPERVISOR DATA PROCESSING Unavailable Unavailable Rosario, E Yoana SUPERVISOR DATA PROCESSING Unavailable Unavailable Rosario, E Yoana SUPERVISOR DATA PROCESSING Unavailable Unavailable Rosario, E Yoana SUPERVISOR DATA PROCESSING Unavailable Unavailable Rosario, E Yoana SUPERVISOR DATA PROCESSING Unavailable Unavailable Rosario, E Yoana SUPERVISOR DATA PROCESSING Unavailable Unavailable Rosario, E Yoana SUPERVISOR DATA PROCESSING Unavailable Unavailable Rosario, E Yoana SUPERVISOR DATA PROCESSING Unavailable Unavailable Rosario, E Yoana SUPERVISOR DATA PROCESSING Unavailable Unavailable Rosario, E Yoana SUPERVISOR DATA PROCESSING Unavailable Unavailable Rosario, E Yoana SUPERVISOR DATA PROCESSING Unavailable Unavailable Rosario, E Yoana SUPERVISOR DATA PROCESSING Unavailable Unavailable Rosario, E Yoana SUPERVISOR DATA PROCESSING Unavailable Unavailable Rosario, E Yoana SUPERVISOR DATA PROCESSING Unavailable Unavailable Rosario, E Yoana SUPERVISOR DATA PROCESSING Unavailable Unavailable Rosario, E Yoana SUPERVISOR DATA PROCESSING Unavailable Unavailable Rosario, E Yoana SUPERVISOR DATA PROCESSING Unavailable Unavailable Rosario, E Yoana SUPERVISOR DATA PROCESSING Unavailable Unavailable Rosario, E Yoana SUPERVISOR DATA PROCESSING Unavailable Unavailable Rosario, E Yoana SUPERVISOR DATA PROCESSING Unavailable Unavailable Rosario, E Yoana SUPERVISOR DATA PROCESSING Unavailable Unavailable Rosario, E Yoana SUPERVISOR DATA PROCESSING Unavailable Unavailable Rosario, E Yoana SUPERVISOR DATA PROCESSING Unavailable Unavailable Rosario, E Yoana SUPERVISOR DATA PROCESSING Unavailable Unavailable Rosario, E Yoana SUPERVISOR DATA PROCESSING Unavailable Unavailable Rosario, E Yoana SUPERVISOR DATA PROCESSING Unavailable Unavailable Rosario, E Yoana SUPERVISOR DATA PROCESSING Unavailable Unavailable Rosario, E Yoana SUPERVISOR DATA PROCESSING Unavailable Unavailable Rosario, E Yoana SUPERVISOR DATA PROCESSING Unavailable Unavailable Rosario, E Yoana SUPERVISOR DATA PROCESSING Unavailable Unavailable Rosario, E Yoana SUPERVISOR DATA PROCESSING Unavailable Unavailable Re-disclosure Warning The records that [...] is protected by Article 27-F of the [facility] Public Health law. If you continue you may have access to information: Regarding HIV / AIDS; Provided by facilities licensed or operated by the [facility] Office of Mental Health; or Provided by the [facility] Office for People With Developmental Disabilities. If such information is present, then the following [facility] mandated warning applies: This information has been [...] law may result in a fine or mcfp sentence or both. A general authorization for the release of medical or other information is NOT sufficient authorization for further disc losure. Family History Family Member Name Family Member Gender Family Member Status Date o f Status Description Data Source(s) Unknown Condition [facility] Encounters Encounter Providers Location Date Indications Data Source(s ) Unknown [address] [facility] [id number] 01/11/2021 12:00:00 AM EDT eCW1 ([facility]) Outpatient [address] [facility] [id number] 01/05/2021 12:00:00 AM EDT eCW1 ([facility]) Unknown [address] [facility] [id number] 12/31/2020 12:00:00 AM EDT eCW1 ([facility]) Outpatient [address] [facility] [place] [address] 12/29/2020 12:00:00 AM EDT eCW1 ([facility]) Outpatient 12/10/2020 05:10:48 PM EDT - 021 05:46:17 PM EDT [facility] ([facility]) Recurring Patient Attender: Yoana Rosario NPReferrer: JULIO RUBIO MD 04/14/2020 09:17:07 AM [facility] Medications Medication Brand Name Start Date Product Form Dose Route Admi nistrative Instructions Pharmacy Instructions Status Indications Reaction Description Data Source(s) Oxycodone Hydrochloride 5 MG Oral Tablet oxyCODONE HCl 5 MG oxyCODONE HCl 5 MG 01/05/2021 12:00:00 AM EDT 1.0 {tablet_as_needed} active oxyCODONE HCl 5 MG eCW1 ([facility]) Oxycodone Hydrochloride 5 MG Oral Tablet oxyCODONE HCl 5 MG oxyCODONE HCl 5 MG 01/05/2021 12:00:00 AM EDT 1.0 {tablet_as_needed} active oxyCODONE HCl 5 MG eCW1 ([facility]) Oxycodone Hydrochloride 5 MG Oral Tablet oxyCODONE HCl 5 MG oxyCODONE HCl 5 MG 12/31/2020 12:00:00 AM EDT 1.0 {tablet_as_needed} active oxyCODONE HCl 5 MG eCW1 ([facility]) Oxycodone Hydrochloride 5 MG Oral Tablet oxyCODONE HCl 5 MG oxyCODONE HCl 5 MG 12/31/2020 12:00:00 AM EDT 1.0 {tablet_as_needed} active oxyCODONE HCl 5 MG eCW1 ([facility]) Levonorgestrel 20 MCG/24HR UNK 12/19/2020 12:00:00 AM EDT active Levonorgestrel 20 MCG/24HR eCW1 ([facility]) Levonorgestrel 20 MCG/24HR UNK 12/19/2020 12:00:00 AM EDT active Levonorgestrel 20 MCG/24HR eCW1 ([facility]) Levonorgestrel 20 MCG/24HR UNK 12/19/2020 12:00:00 AM EDT active Levonorgestrel 20 MCG/24HR eCW1 ([facility]) Levonorgestrel 20 MCG/24HR UNK 12/19/2020 12:00:00 AM EDT active Levonorgestrel 20 MCG/24HR eCW1 ([facility]) Insurance Providers Payer name Policy type / Coverage type Policy ID Covered libertarian ID Covered libertarian's relationship to stewart Policy Stewart Plan Information MEDICAID M [id number] Self [id number] OTIS I [id number] Self [id number] [employer] [place] Other 0 [id number] Self 0 [place] [employer] [place] Other 0 [id number] Self 0 [place] Other 0 [id number] Self 0 [place] Other [id number] Self [place] Other 0 [id number] Self 0 [place] Other 0 [id number] Self 0 [place] Other 0 [id number] Self 0 [place] Other 0 [id number] Self 0 [place] Other 0 [id number] Self 0 [place] Other 0 [id number] Self 0 [place] Other 0 [id number] Self 0 [place] Other 0 [id number] Self 0 [place] [employer] [place] Other 0 [id number] Self 0 [place] Other 0 [id number] Self 0 [place] [employer] [place] Other 0 [id number] Self 0 OTIS [id number] SP [id number] [place] [employer] [place] Other 0 [id number] Self 0 [place] Other 0 [id number] Self 0 [place] [id number] SP [id number] [place] Other 0 [id number] Self 0 OTIS [id number] SP [id number] [employer] [place] Other 0 [id number] Self 0 [place] Other 0 [id number] Self 0 [place] Other 0 [id number] Self 0 [place] [employer] [place] Other 0 [id number] Self 0 [place] [employer] [place] Other 0 [id number] Self 0 [place] Other 0 [id number] Self 0 OTIS [id number] SP [id number] [employer] [employer] [place] Other 0 [id number] Self 0 [place] [employer] [place] Other 0 [id number] Self 0 [place] Other 0 [id number] Self 0 [place] [employer] [place] Other 0 [id number] Self 0 [place] MEDICAID [id number] [place] 7 [id number] [place] Other 0 [id number] Self 0 [place] Medicaid F [id number] SELF 7 [id number] OTIS [id number] SP [id number] OTIS [id number] SP [id number] OTIS [id number] SP [id number] [place] Medicaid F [id number] SELF [id number] [place] C[place] [id number] 0 [id number] OTIS [id number] SP [id number] SELF PAY SELF PAY OTIS [id number] SP [id number] OTIS [id number] SP [id number] SELF PAY OTIS [id number] SP [id number] 800 SELF PAY OTIS [id number] SP [id number] SELF PAY [place] [employer] [id number] Self [id number] [employer] UNAVAILABLE SP UNAVA ILABLE OTIS CARE [facility] [id number] S [id number] MEDICAID [facility] [id number] AY [id number] [employer] [id number] Commercial In surance [employer] [id number] Commercial Insurance [id number] [place] MEDICAID PI PI OTIS [id number] SP [id number] OTIS [id number] SP [id number] [employer] [id number] Commercial Insurance [id number] MEDICAID [id number] SP [id number] OTIS [id number] SP [id number] [employer] [id number] SP [id number] [employer] [id number] 18 [id number] [employer] [id number] 18 [id number] [employer] Medicaid [id number] Self [employer] [id number] SP [id number] Problems, Conditions, and Diagnoses Code Display Name Description Problem Type Effective Dates Data Source(s) G89.4 [id number] Chronic pain syndrome Problem 01/05/2021 12: 00:00 AM EDT eCW1 ([facility]) F10.10 [id number] Alcohol abuse Problem 12/29/2020 12:00:00 AM EDT eCW1 ([facility]) D63.8 [id number] Anemia in other chronic diseases classifi ed elsewhere Problem 12/29/2020 12:00:00 AM EDT eCW1 ([facility]) G89.29 [id number] Other chronic pain Problem 12/29/2020 12:00: 00 AM EDT eCW1 ([facility]) K70.31 [id number] Alcoholic cirrhosis of liver with ascites Problem 12/29/2020 12:00:00 AM EDT eCW1 ([facility]) Surgeries/Procedures No Information Results ID Date Data Source [id number] 12/25/2020 02:49:00 AM EDT [facility] Name Value Range Interpretation Code Description Data Rosario rce(s) Supporting Document(s) SARS coronavirus 2 RNA [Presence] in Res piratory specimen by EDISON with probe detection NEGATIVE [facility] This lab was ordered by [facility] a nd reported by [facility]. ID Date Data Source [id number] 12/17/2020 01:08:00 PM EDT [facility] Name Value Range Interpretation Code Description Data Rosario rce(s) Supporting Document(s) SARS coronavirus 2 RNA [Presence] in Res piratory specimen by EDISON with probe detection NEGATIVE [facility] This lab was ordered by [facility] a nd reported by [facility]. ID Date Data Source [id number] 12/10/2020 05:30:00 PM EDT [facility] Name Value Range Interpretation Code Description Data Rosario rce(s) Supporting Document(s) SARS-CoV-2 RNA Resp Ql EDISON+probe NOT DETECTED [facility] This lab was ordered by [facility] and reported by [facility]. Procedure Social History Code Duration Value Status Description Data Source(s ) Smoking 01/05/2021 12:00:00 AM EDT Never Smoker completed Never S moker eCW1 ([facility]) Smoking 01/05/2021 12:00:00 AM EDT Never Smoker completed Never S moker eCW1 ([facility]) Smoking 12/29/2020 12:00:00 AM EDT Never Smoker completed Never Petra moker eCW1 ([facility]) Smoking 12/29/2020 12:00:00 AM EDT Never Smoker completed Never S abagurwinder eCW1 ([facility]) Vital Signs ID Date Data Source UNK Name Value Range Interpretation Code Description Data Source(s) Body weight 153.8 [lb_av] 153.8 [lb_av] eCW1 ([facility]) Body height [in_i] eCW1 ([facility]) Body mass index (BMI) [Ratio] 26.40 kg/m2 26.40 kg/m2 eCW1 ([facility]) Heart rate 124 /min 124 /min eCW1 ([facility]) Respiratory rate 18 /min 18 /min eCW1 ([facility]) Body temperature 99 [degF] 99 [degF] eCW1 ([facility]) Systolic blood pressure 120 mm[Hg] 120 mm[Hg] e CW1 ([facility]) Diastolic blood pressure 70 mm[Hg] 70 mm[Hg] eCW1 ([facility]) Heart rate 103 /min 103 /min eCW1 ([facility]) Respiratory rate 18 /min 18 /min eCW1 ([facility]) Body temperature 98.2 [degF] 98.2 [degF] eCW1 ( [facility]) Systolic blood pressure 130 mm[Hg] 130 mm[Hg] e CW1 ([facility]) Diastolic blood pressure 80 mm[Hg] 80 mm[Hg] eCW1 ([facility]) Body mass index (BMI) [Ratio] 24.89 kg/m2 24.89 kg/m2 eCW1 ([facility]) Body weight 145 [lb_av] 145 [lb_av] eCW1 ([facility]) Body height [in_i] eCW1 ([facility]) Patient Treatment Plan of Care Planned Activity Planned Date Details Description Data Source (s) Oxycodone Hydrochloride 5 MG Oral Tablet 01/05/2021 12:00:00 AM EDT eCW1 ([facility]) Oxycodone Hydrochloride 5 MG Oral Tablet 01/05/2021 12:00:00 AM EDT eCW1 ([facility]) Oxycodone Hydrochloride 5 MG Oral Tablet 12/31/2020 12:00:00 AM EDT eCW1 ([facility]) Oxycodone Hydrochloride 5 MG Oral Tablet 12/31/2020 12:00:00 AM EDT eCW1 ([facility])
[2021-01-18 08:46] LABS: ALBUMIN 2.6 GM/DL (3.2-5.2); BILIRUBIN,DIRECT 5.8 MG/DL (0.0-0.2); TOTAL PROTEIN 6.5 GM/DL (6.4-8.2)
[2021-01-18 09:02] LABS: INR 1.6; PROTHROMBIN TIME 19.5 SECONDS (12.7-14.5)
[2021-01-18 14:46] VITALS: BP 137/72
--- NOTE | 2021-01-19 17:37 | REP ---
INDICATION: ascites The patient has a history of ascites COMPARISON: None. TECHNIQUE: The procedure was performed by ETIENNE Sands, under the direct supervision of Dr. Kulkarni The risks and benefits of the procedure were explained to the patient and an informed consent was obtained both verbally and written. Directly prior to the start of the procedure a formal time-out was completed in the procedure room. The largest pocket of fluid was localized in the right lower quadrant using ultrasound guidance. The skin was prepped and draped in a sterile fashion. Ten ML of buffered lidocaine 1% lidocaine 10 mg/ml was used as a local anesthetic. An 8-Yoruba multi side-hole catheter was inserted using trocar technique. FINDINGS: 3100 mL of yellow fluid was removed from the patient. The patient tolerated the procedure well and there were no immediate complications. After the appropriate amount of monitored convalescence, the patient was discharged from the department. IMPRESSION: Technically successful paracentesis yielding 3100 mL of yellow fluid. <Electronically signed by Cynthia Vivar > 01/19/21 0750 <Electronically signed by Hermann Kulkarni > 01/19/21 1761
== END 2021-01-18 14:55 | disposition home or self-care (01) ==
LOC: M ED 06:57
DX: K70.31 Alcoholic cirrhosis of liver with ascites (principal); Z98.84 Bariatric surgery status; Z88.8 Allergy status to other drugs, medicaments and biological substances; Z79.899 Other long term (current) drug therapy; Z97.5 Presence of (intrauterine) contraceptive device
CPT/HCPCS: 36415; 49083; 80076; 85027; 85049; 85055; 85610; 96372; 99284; J2270

== ENCOUNTER 2021-02-11 10:24 | Inpatient (IN) | payer OTHER ==
[~2021-02-11] VITALS: Ht 162.6 cm; Wt 77.2 kg
[2021-02-11] MEDS: SPIRONOLACTONE 25 MG TAB PO SCH (09:00)
--- OUTSIDE RECORDS SUMMARY | 2021-02-11 10:32 | CCD ---
Author Author [facility] Organization [facility] Address Unknown Phone Unavailable Support Name Relationship Address Phone NONE, NONE Next Of Kin [address] [facility] [place] [address] [employer] Next Of Kin [address] [place] [address] DASHNAW, COURTNEY Next Of Kin [address] [place] [address] [place] [address] Dom Boss Next Of Kin Unknown Unavailable Dick Franklin Next Of Kin [address] [address] Unavailable LITTLE MONKEYS 123 Next Of Kin [address] [place] [address] JESÚS ANGEL [place] [place] [address] JESÚS PRYOR Next Of Kin [address] [place] [address] DAWNA CHEN Next Of Kin [address] [address] [place] Next Of Kin - -, [place] - - JESÚS ANGEL Next Of Kin [address] [facility] [address] [place] [address] UE Next Of Kin Unknown Unavailable CHRISTINA MENDIOLA Next Of Kin [address] [place] [address] Beau Gallegos Next Of Kin [address] [place] [address] [place] Next Of Kin [address] [address] [place] [address] OME Next Of Kin [address] [place] [address] CHASITY Next Of Kin [address] [place], [place] [id number] UN Next Of Kin Unknown Unavailable [place] [address] none, none ECON [address] [place] [address] Francisco FULLER ECON [address] [place] [address] Unavailable Dom Boss ECON [address] [facility] [address] [place] [address] Unavailable Dick Franklin ECON [address] [facility] [address] [place] [address] Unavailable Sergei Angel ECON [address] [place] [address] Unavailable Care Team Providers Care Lead Pony Rider Name Role Phone Luz JUAN MD Unavailable Unavailable Luz JUAN MD Unavailable Unavailable Luz JUAN MD Unavailable Unavailable Luz JUAN MD Unavailable Unavailable Luz JUAN MD Unavailable Unavailable DRAKELuz ALEMAN MD Unavailable Unavailable DRAKELuz ALEMAN MD Unavailable Unavailable DRAKELuz ALEMAN MD Unavailable Unavailable Luz JUAN MD Unavailable Unavailable Luz JUAN MD Unavailable Unavailable Luz JUAN MD Unavailable Unavailable Luz JUAN MD Unavailable Unavailable Luz JUAN MD Unavailable Unavailable Luz JUAN MD Unavailable Unavailable Luz JUAN MD Unavailable Unavailable Luz JUAN MD Unavailable Unavailable Luz JUAN MD Unavailable Unavailable Luz JUAN MD Unavailable Unavailable DRAKELuz ALEMAN MD Unavailable Unavailable Luz JUAN MD Unavailable [...] KIM MD Unavailable Unavailable Rosario, E Yoana CENTRAL SERVICE TECHNICIAN Unavailable Unavailable Rosario, E Yoana CENTRAL SERVICE TECHNICIAN Unavailable Unavailable Rosario, E Oyana CENTRAL SERVICE TECHNICIAN Unavailable Unavailable Rosario, E Yoana CENTRAL SERVICE TECHNICIAN Unavailable Unavailable Rosario, E Yoana CENTRAL SERVICE TECHNICIAN Unavailable Unavailable Rosario, E Yoana CENTRAL SERVICE TECHNICIAN Unavailable Unavailable Rosario, E Yoana CENTRAL SERVICE TECHNICIAN Unavailable Unavailable Rosario, E Yoana CENTRAL SERVICE TECHNICIAN Unavailable Unavailable Rosario, E Yoana CENTRAL SERVICE TECHNICIAN Unavailable Unavailable Rosario, E Yoana CENTRAL SERVICE TECHNICIAN Unavailable Unavailable Rosario, E Yoana CENTRAL SERVICE TECHNICIAN Unavailable Unavailable Rosario, E Yoana CENTRAL SERVICE TECHNICIAN Unavailable Unavailable Rosario, E Yoana CENTRAL SERVICE TECHNICIAN Unavailable Unavailable Rosario, E Yoana CENTRAL SERVICE TECHNICIAN Unavailable Unavailable Rosario, E Yoana CENTRAL SERVICE TECHNICIAN Unavailable Unavailable Rosario, E Yoana CENTRAL SERVICE TECHNICIAN Unavailable Unavailable Rosario, E Yoana CENTRAL SERVICE TECHNICIAN Unavailable Unavailable Rosario, E Yoana CENTRAL SERVICE TECHNICIAN Unavailable Unavailable Rosario, E Yoana CENTRAL SERVICE TECHNICIAN Unavailable Unavailable Rosario, E Yoana CENTRAL SERVICE TECHNICIAN Unavailable Unavailable Rosario, E Yoana CENTRAL SERVICE TECHNICIAN Unavailable Unavailable Rosario, E Yoana CENTRAL SERVICE TECHNICIAN Unavailable Unavailable Rosario, E Yoana CENTRAL SERVICE TECHNICIAN Unavailable Unavailable Rosario, E Yoana CENTRAL SERVICE TECHNICIAN Unavailable Unavailable Rosario, E Yoana CENTRAL SERVICE TECHNICIAN Unavailable Unavailable Rosario, E Yoana CENTRAL SERVICE TECHNICIAN Unavailable Unavailable Rosario, E Yoana CENTRAL SERVICE TECHNICIAN Unavailable Unavailable Rosario, E Yoana CENTRAL SERVICE TECHNICIAN Unavailable Unavailable Rosario, E Yoana CENTRAL SERVICE TECHNICIAN Unavailable Unavailable Rosario, E Yoana CENTRAL SERVICE TECHNICIAN Unavailable Unavailable Rosario, E Yoana CENTRAL SERVICE TECHNICIAN Unavailable Unavailable Rosario, E Yoana CENTRAL SERVICE TECHNICIAN Unavailable Unavailable Rosario, E Yoana CENTRAL SERVICE TECHNICIAN Unavailable Unavailable Re-disclosure Warning The records that [...] is protected by Article 27-F of the [facility] Public Health law. If you continue you may have access to information: Regarding HIV / AIDS; Provided by facilities licensed or operated by the [facility] Office of Mental Health; or Provided by the [facility] Office for People With Developmental Disabilities. If such information is present, then the following [facility] mandated warning applies: This information has been [...] law may result in a fine or detention sentence or both. A general authorization for the release of medical or other information is NOT sufficient authorization for further disc losure. Family History Family Member Name Family Member Gender Family Member Status Date o f Status Description Data Source(s) Unknown Condition [facility] Encounters Encounter Providers Location Date Indications Data Source(s ) Unknown [address] [facility] [address] [id number] 01/11/2021 12:00:00 AM EDT eCW1 ([facility]) Outpatient [address] [address] [id number] 01/05/2021 12:00:00 AM EDT eCW1 ([facility]) Unknown [address] [address] [id number] 12/31/2020 12:00:00 AM EDT eCW1 ([facility]) Outpatient [address] [address] [id number] 12/29/2020 12:00:00 AM EDT eCW1 ([facility]) Outpatient 12/10/2020 05:10:48 PM EDT - 021 05:46:17 PM EDT [facility] ([facility]) Recurring Patient Attender: Yoana Rosario NPReferrer: JULIO RUBIO MD 04/14/2020 09:17:07 AM [facility] Medications Medication Brand Name Start Date Product Form Dose Route Admi nistrative Instructions Pharmacy Instructions Status Indications Reaction Description Data Source(s) Oxycodone Hydrochloride 5 MG Oral Tablet oxyCODONE HCl 5 MG oxyCODONE HCl 5 MG 01/05/2021 12:00:00 AM EDT 1.0 {tablet_as_needed} active oxyCODONE HCl 5 MG eCW1 ([facility]) Oxycodone Hydrochloride 5 MG Oral Tablet oxyCODONE HCl 5 MG oxyCODONE HCl 5 MG 01/05/2021 12:00:00 AM EDT 1.0 {tablet_as_needed} active oxyCODONE HCl 5 MG eCW1 ([facility]) Oxycodone Hydrochloride 5 MG Oral Tablet oxyCODONE HCl 5 MG oxyCODONE HCl 5 MG 12/31/2020 12:00:00 AM EDT 1.0 {tablet_as_needed} active oxyCODONE HCl 5 MG eCW1 ([facility]) Oxycodone Hydrochloride 5 MG Oral Tablet oxyCODONE HCl 5 MG oxyCODONE HCl 5 MG 12/31/2020 12:00:00 AM EDT 1.0 {tablet_as_needed} active oxyCODONE HCl 5 MG eCW1 ([facility]) Levonorgestrel 20 MCG/24HR UNK 12/19/2020 12:00:00 AM EDT active Levonorgestrel 20 MCG/24HR eCW1 ([facility]) Levonorgestrel 20 MCG/24HR UNK 12/19/2020 12:00:00 AM EDT active Levonorgestrel 20 MCG/24HR eCW1 ([facility]) Levonorgestrel 20 MCG/24HR UNK 12/19/2020 12:00:00 AM EDT active Levonorgestrel 20 MCG/24HR eCW1 ([facility]) Levonorgestrel 20 MCG/24HR UNK 12/19/2020 12:00:00 AM EDT active Levonorgestrel 20 MCG/24HR eCW1 ([facility]) Insurance Providers Payer name Policy type / Coverage type Policy ID Covered republican ID Covered republican's relationship to setwart Policy Stewart Plan Information MEDICAID M [id number] Self [id number] OTIS I [id number] Self [id number] [place] Other 0 [id number] Self 0 [place] Other 0 [id number] Self 0 [place] Other 0 [id number] Self 0 [place] Other [id number] Self [place] Other 0 [id number] Self 0 [place] Other 0 [id number] Self 0 [place] Other 0 [id number] Self 0 [place] Other 0 [id number] Self 0 [place] Other 0 [id number] Self 0 [place] Other 0 [id number] Self 0 [place] Other 0 [id number] Self 0 [place] Other 0 [id number] Self 0 [place] Other 0 [id number] Self 0 [place] Other 0 [id number] Self 0 [place] Other 0 [id number] Self 0 OTIS [id number] SP [id number] [place] Other 0 [id number] Self 0 [place] Other 0 [id number] Self 0 [place] [id number] SP AY [id number] [place] Other 0 [id number] Self 0 OTIS [id number] SP [id number] [place] Other 0 [id number] Self 0 [place] Other 0 [id number] Self 0 [place] Other 0 [id number] Self 0 [place] Other 0 [id number] Self 0 [place] Other 0 [id number] Self 0 [place] Other 0 [id number] Self 0 OTIS [id number] SP [id number] [place] Other 0 [id number] Self 0 [place] Other 0 [id number] Self 0 [place] Other 0 [id number] Self 0 [place] Other 0 [id number] Self 0 OTIS MEDICAID [id number] Ladan 7 [id number] [place] Other 0 [id number] Self 0 Makena Medicaid F [id number] SELF 7 [id number] OTIS [id number] SP [id number] OTIS [id number] SP [id number] OTIS [id number] SP [id number] [place] Medicaid F [id number] SELF [id number] [place] [id number] 0 [id number] OTIS [id number] SP [id number] SELF PAY SELF PAY OTIS [id number] SP [id number] OTIS [id number] SP [id number] SELF PAY OTIS [id number] SP [id number] SELF PAY OTIS [id number] SP [id number] SELF PAY [employer] [id number] Self [id number] [employer]ELERS UNAVAILABLE SP UNAVA ILABLE OTIS CARE [facility] [id number] 74 [id number] MEDICAID [facility] [id number] [id number] Otis Care [id number] Commercial In surance Makena Care [id number] Commercial Insurance [id number] OTIS MEDICAID PI PI OTIS [id number] SP [id number] OTIS [id number] SP [id number] [employer] Care [id number] Commercial Insurance [id number] MEDICAID [id number] SP [id number] OTIS [id number] SP [id number] TRAVELERS [id number] SP [id number] MedFocus [id number] 18 [id number] [employer] [id number] [place] Care Medicaid 32118 Self TRAVELERS [id number] SP [id number] Problems, Conditions, and Diagnoses Code Display Name Description Problem Type Effective Dates Data Source(s) G89.4 [id number] Chronic pain syndrome Problem 01/05/2021 12: 00:00 AM EDT eCW1 ([facility]) F10.10 [id number] Alcohol abuse Problem 12/29/2020 12:00:00 AM EDT eCW1 ([facility]) D63.8 [id number] Anemia in other chronic diseases classifi ed elsewhere Problem 12/29/2020 12:00:00 AM EDT eCW1 ([facility]) G89.29 [id number] Other chronic pain Problem 12/29/2020 12:00: 00 AM EDT eCW1 ([facility]) K70.31 [id number] Alcoholic cirrhosis of liver with ascites Problem 12/29/2020 12:00:00 AM EDT eCW1 ([facility]) Surgeries/Procedures No Information Results ID Date Data Source [id number] 01/26/2021 11:08:59 AM EDT [facility] - CORE SPECIMEN DESCRIPTION SKINSPECIAL REQUESTS NONEGRAM STAIN FEW (<10/LPF) WHITE BLOOD CELLS NO BACTERIACULTURE RESULTS RARE METHICILLIN RESISTANT STAPH AUREUS ISOLATED. IF NEEDED, ADDITIONAL SUSCEPTIBILITY RESULTS MA Y BE OBTAINED BY CONTACTING THE [facility]CRO[facility]OLOGY LABORATORY ([phone]).RESULT(S) CALLED TO AND READ BACK BY DELVIN AT 5809 [place] FAXED [id number] ON [id number]. REPORT STATUS FINAL 01/26/2021ORGANISM METHICILLIN RESISTANT STAPH AUREUS ISOLATED.METHOD MICCLINDAMYCIN 0.25 RESISTANTERYTHROMYCIN >=8 RESISTANTLEVOFLOXACIN 1 SUSCEPTIBLELINEZOLID 2 SUSCEPTIBLEOXACILLIN >=4 RESISTANT OXACILLIN PREDICTS RESULTS FOR PENICILLINASE RESISTANT PENICILLINS, BETA LACTAM/BETALACTAMASE INHIBITOR COMBINATIONS,CEPHALOSPORINS (WITH THE EXCEPTION OF CEPHALOSPORINS WITH ANTI MRSA ACTIVITY), AND CARBAPENEMS PER CLSI STANDARDS.TETRACYCLINE <=1 SUSCEPTIBLE ISOLATES SUSCEPTIBLE TO TETRACYCLINE ARE ALSO SUSCEPTIBLE TO DOXYCYCLINE AND MINOCYCLINE.VANCOMYCIN 1 SUSCEPTIBLETRIMETH/SULFA <=.5/9.5 SUSCEPTIBLEDAPTOMYCIN 0.25 SUSCEPTIBLECEFTAROLINE 0.25 SUSCEPTIBLE Name Value Range Interpretation Code Description Data Rosario rce(s) Supporting Document(s) ID Date Data Source [id number] 12/25/2020 02:49:00 AM EDT [facility] Name Value Range Interpretation Code Description Data Rosario rce(s) Supporting Document(s) SARS coronavirus 2 RNA [Presence] in Res piratory specimen by EDISON with probe detection NEGATIVE [facility] This lab was ordered by [facility] a nd reported by [facility]. ID Date Data Source [id number] 12/17/2020 01:08:00 PM EDT [facility] Name Value Range Interpretation Code Description Data Rosario rce(s) Supporting Document(s) SARS coronavirus 2 RNA [Presence] in Res piratory specimen by EDISON with probe detection NEGATIVE [facility] This lab was ordered by [facility] a nd reported by [facility]. ID Date Data Source [id number] 12/10/2020 05:30:00 PM EDT [facility] Name Value Range Interpretation Code Description Data Rosario rce(s) Supporting Document(s) SARS-CoV-2 RNA Resp Ql EDISON+probe NOT DETECTED [facility] This lab was ordered by [facility] and reported by [facility]. Procedure Social History Code Duration Value Status Description Data Source(s ) Smoking 01/05/2021 12:00:00 AM EDT Never Smoker completed Never S moker eCW1 ([facility]) Smoking 01/05/2021 12:00:00 AM EDT Never Smoker completed Never S moker eCW1 ([facility]) Smoking 12/29/2020 12:00:00 AM EDT Never Smoker completed Never S moker eCW1 ([facility]) Smoking 12/29/2020 12:00:00 AM EDT Never Smoker completed Never S moker eCW1 ([facility]) Vital Signs ID Date Data Source UNK Name Value Range Interpretation Code Description Data Source(s) Body weight 153.8 [lb_av] 153.8 [lb_av] eCW1 ([facility]) Body height [in_i] eCW1 ([facility]) Body mass index (BMI) [Ratio] 26.40 kg/m2 26.40 kg/m2 eCW1 ([facility]) Heart rate 124 /min 124 /min eCW1 (Replaced by [facility]) Respiratory rate 18 /min 18 /min eCW1 ([facility]) Body temperature 99 [degF] 99 [degF] eCW1 ([facility]) Systolic blood pressure 120 mm[Hg] 120 mm[Hg] e CW1 ([facility]) Diastolic blood pressure 70 mm[Hg] 70 mm[Hg] eCW1 ([facility]) Body weight 145 [lb_av] 145 [lb_av] eCW1 ([facility]) Body height [in_i] eCW1 ([facility]) Body mass index (BMI) [Ratio] 24.89 kg/m2 24.89 kg/m2 eCW1 ([facility]) Respiratory rate 18 /min 18 /min eCW1 ([facility]) Heart rate 103 /min 103 /min eCW1 ([facility]placed by [facility]) Systolic blood pressure 130 mm[Hg] 130 mm[Hg] e CW1 ([facility]) Body temperature 98.2 [degF] 98.2 [degF] eCW1 ( [facility]) Diastolic blood pressure 80 mm[Hg] 80 mm[Hg] eCW1 ([facility]) Patient Treatment Plan of Care Planned Activity Planned Date Details Description Data Source (s) Oxycodone Hydrochloride 5 MG Oral Tablet 01/05/2021 12:00:00 AM EDT eCW1 ([facility]) Oxycodone Hydrochloride 5 MG Oral Tablet 01/05/2021 12:00:00 AM EDT eCW1 ([facility]) Oxycodone Hydrochloride 5 MG Oral Tablet 12/31/2020 12:00:00 AM EDT eCW1 ([facility]) Oxycodone Hydrochloride 5 MG Oral Tablet 12/31/2020 12:00:00 AM EDT eCW1 ([facility])
--- NOTE | 2021-02-11 11:17 | REP ---
INDICATION: Abdominal Pain COMPARISON: None. TECHNIQUE: Upright view of the chest with supine and upright views of the abdomen and pelvis. FINDINGS: Frontal upright view of the chest demonstrates no acute cardiopulmonary process or free air below the diaphragm to suspect pneumoperitoneum. Supine and upright views of the abdomen and pelvis demonstrate nonspecific bowel gas pattern without obstruction or perforation. No organomegaly. No abnormal calcifications. Skeletal structures normal for age. Evidence for prior cholecystectomy and IUD in satisfactory position. IMPRESSION: Nonspecific bowel gas pattern. <Electronically signed by Lc Galindo > 02/11/21 [id number]
[2021-02-11] MEDS ORDERED: ONDANSETRON 4MG/2ML VIAL IV ONE (11:20)
[2021-02-11] MEDS ORDERED: MORPHINE 2 MG/ML 1ML VIAL (J2270) IV ONE ×2 (11:20→21:20)
[2021-02-11 11:37] LABS: BASO % 0.6 % (0.0-1.0); EOS % 0.6 % (0.0-3.0); HEMATOCRIT 28.2 % (36.0-47.0); HEMOGLOBIN 8.8 g/dl (12.0-15.5); LYMPH # 1.1 10^3/uL (1.5-5.0); LYMPH % 15.1 % (24.0-44.0); MEAN CORPUSCULAR HEMOGLOBIN 33.7 pg (27.0-33.0); MEAN CORPUSCULAR HGB CONC 31.2 g/dl (32.0-36.5); MONO # 0.7 10^3/uL (0.0-0.8); NEUTROPHILS # 5.2 10^3/uL (1.5-8.5); NEUTROPHILS % 72.6 % (36.0-66.0); RED BLOOD COUNT 2.61 10^6/uL (4.00-5.40); WHITE BLOOD COUNT 7.1 10^3/uL (4.0-10.0)
[2021-02-11 11:41] LABS: PLATELET COUNT, AUTOMATED 42 10^3/uL (150-450)
[2021-02-11 11:49] LABS: INR 1.99
[2021-02-11 11:50] LABS: PARTIAL THROMBOPLASTIN TIME 42.4 SECONDS (25.9-37.0)
--- NOTE | 2021-02-11 11:55 | REP ---
INDICATION: b/l LE edema/calf pain, r/o DVT. COMPARISON: None. TECHNIQUE: Multiple ultrasonographic images of the deep venous structures of the bilateral lower extremity were obtained from the inguinal ligament to the ankle. Venous compression techniques, color doppler imaging, and augmentation techniques were also obtained where appropriate. As per the ACR guidelines the anterior tibial vein can not be effectively evaluated. Only compression techniques in the calf on the peroneal and posterior tibial veins was attempted/performed. FINDINGS: There is no abnormal echogenic material seen within any of the visualized deep venous structures that would suggest acute thrombosis. Coaptation is unremarkable throughout. Doppler interrogation shows an expected response to respiratory variability and augmentation in the thigh. Compression techniques in the calf were unobtainable. The color flow images show what appears to be a normal vascular pattern throughout the thigh. IMPRESSION: There is no ultrasonographic evidence of deep venous thrombosis involving any of the visualized deep venous structures of the bilateral lower extremity as described above. Due to technical parameters calf vein DVT can not be ruled out. <Electronically signed by Jose Braswell > 02/11/21 [id number]
[2021-02-11 12:04] LABS: RSV AMPLIFICATION NEGATIVE (NEGATIVE)
[2021-02-11 12:10] LABS: CK-MB VALUE MASS < 1.0 NG/ML (<3.6); CPK CREATINE PHOSPHOKINASE 91 U/L (26-192); TROPONIN I < 0.02 NG/ML (< 0.10)
[2021-02-11 12:47] LABS: ALBUMIN 2.1 GM/DL (3.2-5.2); ALT/SGPT 48 U/L (12-78); AMYLASE 49 U/L (25-115); BILIRUBIN,DIRECT 8.1 MG/DL (0.0-0.2); BILIRUBIN,TOTAL 13.3 MG/DL (0.2-1.0); BLOOD UREA NITROGEN 6 MG/DL (7-18); CARBON DIOXIDE LEVEL 30 MEQ/L (21-32); CHLORIDE LEVEL 101 MEQ/L (98-107); CREATININE FOR GFR 0.42 MG/DL (0.55-1.30); GLOMERULAR FILTRATION RATE > 60.0 (>60); GLUCOSE, FASTING 87 MG/DL (70-100); LIPASE 217 U/L (73-393); POTASSIUM SERUM 2.8 MEQ/L (3.5-5.1); SODIUM LEVEL 141 MEQ/L (136-145); TOTAL PROTEIN 6.7 GM/DL (6.4-8.2)
--- OUTSIDE RECORDS SUMMARY | 2021-02-11 12:50 | CCD ---
Author Author [facility] Organization [facility] Address Unknown Phone Unavailable Support Name Relationship Address Phone NONE, NONE Next Of Kin [address] [facility] [place] [address] [employer] Next Of Kin [address] [place] [address] DASHNAW, COURTNEY Next Of Kin [address] [place] [address] [place] [address] Dom Boss Next Of Kin Unknown Unavailable Dick Franklin Next Of Kin [address] [address] Unavailable LITTLE MONKEYS 123 Next Of Kin [address] [place] [address] JESÚS ANGEL [place] [address] JESÚS PRYOR Next Of [facility] [address] [facility] [address] [place] [address] DAWNA CHEN Next Of Kin [address] [address] [place] Next Of Kin - -, [place] - - JESÚS ANGEL Next Of Kin [address] [facility] [address] [place] [address] UE Next Of Kin Unknown Unavailable CHRISTINA MENDIOLA Next Of Kin [address] [place] [address] Beau Gallegos Next Of Kin [address] [place] [address] [place] Next Of Kin [address] [address] [place] [address] OME Next Of Kin [address] [place] [address] CHASITY Next Of Kin [address] [place], [place] [address] UN Next Of Kin Unknown Unavailable [place] [address] none, none ECON [address] [place] [address] Francisco FULLER ECON [address] [place] [address] Unavailable Dom Boss ECON [address] [facility] [address] [place] [address] Unavailable Dick Franklin ECON [address] [facility] [address] [place] [address] Unavailable Sergei Angel ECON [address] [place] [address] Unavailable Care Team Providers Care Lab Assistant Name Role Phone Luz JUAN MD Unavailable [...] KIM MD Unavailable Unavailable Rosario, E Yoana CHANGE OF ADDRESS CLERK Unavailable Unavailable Rosario, E Yoana CHANGE OF ADDRESS CLERK Unavailable Unavailable Rosario, E Yoana CHANGE OF ADDRESS CLERK Unavailable Unavailable Rosario, E Yoana CHANGE OF ADDRESS CLERK Unavailable Unavailable Rosario, E Yoana CHANGE OF ADDRESS CLERK Unavailable Unavailable Rosario, E Yoana CHANGE OF ADDRESS CLERK Unavailable Unavailable Rosario, E Yoana CHANGE OF ADDRESS CLERK Unavailable Unavailable Rosario, E Yoana CHANGE OF ADDRESS CLERK Unavailable Unavailable Rosario, E Yoana CHANGE OF ADDRESS CLERK Unavailable Unavailable Rosario, E Yoana CHANGE OF ADDRESS CLERK Unavailable Unavailable Rosario, E Yoana CHANGE OF ADDRESS CLERK Unavailable Unavailable Rosario, E Yoana CHANGE OF ADDRESS CLERK Unavailable Unavailable Rosario, E Yoana CHANGE OF ADDRESS CLERK Unavailable Unavailable Rosario, E Yoana CHANGE OF ADDRESS CLERK Unavailable Unavailable Rosario, E Yoana CHANGE OF ADDRESS CLERK Unavailable Unavailable Rosario, E Yoana CHANGE OF ADDRESS CLERK Unavailable Unavailable Rosario, E Yoana CHANGE OF ADDRESS CLERK Unavailable Unavailable Rosario, E Yoana CHANGE OF ADDRESS CLERK Unavailable Unavailable Rosario, E Yoana CHANGE OF ADDRESS CLERK Unavailable Unavailable Rosario, E Yoana CHANGE OF ADDRESS CLERK Unavailable Unavailable Rosario, E Yoana CHANGE OF ADDRESS CLERK Unavailable Unavailable Rosario, E Yoana CHANGE OF ADDRESS CLERK Unavailable Unavailable Rosario, E Yoana CHANGE OF ADDRESS CLERK Unavailable Unavailable Rosario, E Yoana CHANGE OF ADDRESS CLERK Unavailable Unavailable Rosario, E Yoana CHANGE OF ADDRESS CLERK Unavailable Unavailable Rosario, E Yoana CHANGE OF ADDRESS CLERK Unavailable Unavailable Rosario, E Yoana CHANGE OF ADDRESS CLERK Unavailable Unavailable Rosario, E Yoana CHANGE OF ADDRESS CLERK Unavailable Unavailable Rosario, E Yoana CHANGE OF ADDRESS CLERK Unavailable Unavailable Rosario, E Yoana CHANGE OF ADDRESS CLERK Unavailable Unavailable Rosario, E Yoana CHANGE OF ADDRESS CLERK Unavailable Unavailable Rosario, E Yoana CHANGE OF ADDRESS CLERK Unavailable Unavailable Rosario, E Yoana CHANGE OF ADDRESS CLERK Unavailable Unavailable Re-disclosure Warning The records that [...] is protected by Article 27-F of the [facility] Public Health law. If you continue you may have access to information: Regarding HIV / AIDS; Provided by facilities licensed or operated by the [facility] Office of Mental Health; or Provided by the [facility] Office for People With Developmental Disabilities. If such information is present, then the following [facility] mandated warning applies: This information has [...] f Status Description Data Source(s) Unknown Condition [facility] Encounters Encounter Providers Location Date Indications Data Source(s ) Unknown [address] [id number] 01/11/2021 12:00:00 AM EDT eCW1 ([facility]) Outpatient [address] [id number] 01/05/2021 12:00:00 AM EDT eCW1 ([facility]) Unknown [address] [id number] 12/31/2020 12:00:00 AM EDT eCW1 ([facility]) Outpatient [address] [id number] 12/29/2020 12:00:00 AM EDT eCW1 ([facility]) Outpatient 12/10/2020 05:10:48 PM EDT - 021 05:46:17 PM EDT [facility] ([facility]) Recurring Patient Attender: Yoana Rosario NPReferrer: JULIO RUBIO MD 04/14/2020 09:17:07 AM [facility] Medications Medication Brand Name Start Date Product Form Dose Route Admi nistrative Instructions Pharmacy Instructions Status Indications Reaction Description Data Source(s) Oxycodone Hydrochloride 5 MG Oral Tablet oxyCODONE HCl 5 MG oxyCODONE HCl 5 MG 01/05/2021 12:00:00 AM EDT 1.0 {tablet_as_needed} active oxyCODONE HCl 5 MG eCW1 ([facility]) Oxycodone Hydrochloride 5 MG Oral Tablet oxyCODONE HCl 5 MG oxyCODONE HCl 5 MG 01/05/2021 12:00:00 AM EDT 1.0 {tablet_as_needed} active oxyCODONE HCl 5 MG eCW1 ([facility]) Oxycodone Hydrochloride 5 MG Oral Tablet oxyCODONE HCl 5 MG oxyCODONE HCl 5 MG 12/31/2020 12:00:00 AM EDT 1.0 {tablet_as_needed} active oxyCODONE HCl 5 MG eCW1 ([facility]) Oxycodone Hydrochloride 5 MG Oral Tablet oxyCODONE HCl 5 MG oxyCODONE HCl 5 MG 12/31/2020 12:00:00 AM EDT 1.0 {tablet_as_needed} active oxyCODONE HCl 5 MG eCW1 ([facility]) Levonorgestrel 20 MCG/24HR UNK 12/19/2020 12:00:00 AM EDT active Levonorgestrel 20 MCG/24HR eCW1 ([facility]) Levonorgestrel 20 MCG/24HR UNK 12/19/2020 12:00:00 AM EDT active Levonorgestrel 20 MCG/24HR eCW1 ([facility]) Levonorgestrel 20 MCG/24HR UNK 12/19/2020 12:00:00 AM EDT active Levonorgestrel 20 MCG/24HR eCW1 ([facility]) Levonorgestrel 20 MCG/24HR UNK 12/19/2020 12:00:00 AM EDT active Levonorgestrel 20 MCG/24HR eCW1 ([facility]) Insurance Providers Payer name Policy type / Coverage type Policy ID Covered constitution party ID Covered constitution party's relationship to stewart Policy Stewart Plan Information MEDICAID M [id number] Self [id number] OTIS I [id number] Self [id number] [facility] [place] Other 0 [id number] Self 0 [place] [facility] [place] Other 0 [id number] Self 0 [place] [facility] [place] Other 0 [id number] Self 0 [place] [facility] [place] Other [id number] Self [place] [facility] [place] Other 0 [id number] Self 0 [place] [facility] [place] Other 0 [id number] Self 0 [place] [facility] [place] Other 0 [id number] Self 0 [place] [facility] [place] Other 0 [id number] Self 0 [place] [facility] [place] Other 0 [id number] Self 0 [place] [facility] [place] Other 0 [id number] Self 0 [place] [facility] [place] Other 0 [id number] Self 0 [place] [facility] [place] Other 0 [id number] Self 0 [place] [facility] [place] Other 0 [id number] Self 0 [place] [facility] [place] Other 0 [id number] Self 0 [place] [facility] [place] Other 0 [id number] Self 0 OTIS [id number] SP [id number] [place] [facility] [place] Other 0 [id number] Self 0 [place] [facility] [place] Other 0 [id number] Self 0 [place] [id number] SP AY [id number] [place] [facility] [place] Other 0 [id number] Self 0 OTIS [id number] SP [id number] [place] [facility] [place] Other 0 [id number] Self 0 [place] [facility] [place] Other 0 [id number] Self 0 [place] [facility] [place] Other 0 [id number] Self 0 [place] [facility] [place] Other 0 [id number] Self 0 [place] [facility] [place] Other 0 [id number] Self 0 [place] [facility] [place] Other 0 [id number] Self 0 OTIS [id number] SP [id number] [place] [facility] [place] Other 0 [id number] Self 0 [place] [facility] [place] Other 0 [id number] Self 0 [place] [facility] [place] Other 0 [id number] Self 0 [place] [facility] [place] Other 0 [id number] Self 0 [place] MEDICAID [id number] [place] 7 [id number] [place] [facility] [place] Other 0 [id number] Self 0 [place] F [id number] SELF 7 [id number] OTIS [id number] SP [id number] OTIS [id number] SP [id number] OTIS [id number] SP [id number] [place] Medicaid F [id number] SELF [id number] [place] CARE [place] MEDICAID [id number] 0 [id number] OTIS [id number] SP [id number] SELF PAY SELF PAY OTIS [id number] SP [id number] OTIS [id number] SP [id number] SELF PAY OTIS [id number] SP [id number] 800 SELF PAY OTIS [id number] SP [id number] SELF PAY [employer] [id number] Self [id number] [employer] UNAVAILABLE SP UNAVA ILABLE OTIS CARE [facility] [id number] 74 [id number] MEDICAID [facility] [id number] [facility] [id number] Commercial In surance [place] [facility] [id number] Commercial Insurance [id number] OTIS MEDICAID PI PI OTIS [id number] SP [id number] OTIS [id number] SP [id number] [facility] [id number] Commercial Insurance [id number] [place]ICAID [id number] SP [id number] OTIS [id number] SP [id number] [employer] [id number] SP [id number] [employer] [id number] 18 [id number] [employer] [id number] 18 [id number] [place] [employer] Medicaid [id number] Self [employer] [id number] SP [id number] Problems, Conditions, and Diagnoses Code Display Name Description Problem Type Effective Dates Data Source(s) G89.4 [id number] Chronic pain syndrome Problem 01/05/2021 12: 00:00 AM EDT eCW1 ([facility]) F10.10 [id number] Alcohol abuse Problem 12/29/2020 12:00:00 AM EDT eCW1 ([facility]) D63.8 [id number] Anemia in other chronic diseases classifi ed elsewhere Problem 12/29/2020 12:00:00 AM EDT eCW1 ([facility]) G89.29 [id number] Other chronic pain Problem 12/29/2020 12:00: 00 AM EDT eCW1 ([facility]) K70.31 [id number] Alcoholic cirrhosis of liver with ascites Problem 12/29/2020 12:00:00 AM EDT eCW1 ([facility]) Surgeries/Procedures No Information Results ID Date Data Source [id number] 01/26/2021 11:08:59 AM EDT [facility] - CORE SPECIMEN DESCRIPTION SKINSPECIAL REQUESTS NONEGRAM STAIN FEW (<10/LPF) WHITE BLOOD CELLS NO BACTERIACULTURE RESULTS RARE METHICILLIN RESISTANT STAPH AUREUS ISOLATED. IF NEEDED, ADDITIONAL SUSCEPTIBILITY RESULTS MA Y BE OBTAINED BY CONTACTING THE [facility]OLOG[facility] ([phone]).RESULT(S) CALLED TO AND READ BACK BY DELVIN AT 2632 AND FAXED [phone] ON [id number]. REPORT STATUS FINAL 01/26/2021ORGANISM METHICILLIN RESISTANT STAPH [...] rce(s) Supporting Document(s) ID Date Data Source [id number] 12/25/2020 02:49:00 AM EDT [facility] Name Value Range Interpretation Code Description Data Rosario rce(s) Supporting Document(s) SARS coronavirus 2 RNA [Presence] in Res piratory specimen by EDISON with probe detection NEGATIVE [facility] This lab was ordered by [facility] a nd reported by [facility]. ID Date Data Source [id number] 12/17/2020 01:08:00 PM EDT [facility] Name Value Range Interpretation Code Description Data Rosario rce(s) Supporting Document(s) SARS coronavirus 2 RNA [Presence] in Res piratory specimen by EDISON with probe detection NEGATIVE [facility] This lab was ordered by [facility] a nd reported by [facility]. ID Date Data Source [id number] 12/10/2020 05:30:00 PM EDT [facility] Name Value Range Interpretation Code Description Data Rosario rce(s) Supporting Document(s) SARS-CoV-2 RNA Resp Ql EDISON+probe NOT DETECTED [facility] This lab was ordered by [facility] and reported by [facility]. Procedure Social History Code Duration Value Status Description Data Source(s ) Smoking 01/05/2021 12:00:00 AM EDT Never Smoker completed Never S moker eCW1 ([facility]) Smoking 01/05/2021 12:00:00 AM EDT Never Smoker completed Never S moker eCW1 ([facility]) Smoking 12/29/2020 12:00:00 AM EDT Never Smoker completed Never S moker eCW1 ([facility]) Smoking 12/29/2020 12:00:00 AM EDT Never Smoker completed Never S moker eCW1 ([facility]) Vital Signs ID Date Data Source UNK Name Value Range Interpretation Code Description Data Source(s) Body weight 153.8 [lb_av] 153.8 [lb_av] eCW1 ([facility]) Body height [in_i] eCW1 ([facility]) Body mass index (BMI) [Ratio] 26.40 kg/m2 26.40 kg/m2 eCW1 ([facility]) Heart rate 124 /min 124 /min eCW1 ([facility]) Respiratory rate 18 /min 18 /min eCW1 ([facility]) Body temperature 99 [degF] 99 [degF] eCW1 ([facility]) Systolic blood pressure 120 mm[Hg] 120 mm[Hg] e CW1 ([facility]) Diastolic blood pressure 70 mm[Hg] 70 mm[Hg] eCW1 ([facility]) Body weight 145 [lb_av] 145 [lb_av] eCW1 ([facility]) Body height [in_i] eCW1 ([facility]) Body mass index (BMI) [Ratio] 24.89 kg/m2 24.89 kg/m2 eCW1 ([facility]) Heart rate 103 /min 103 /min eCW1 ([facility]) Respiratory rate 18 /min 18 /min eCW1 ([facility]) Body temperature 98.2 [degF] 98.2 [degF] eCW1 ( [facility]) Systolic blood pressure 130 mm[Hg] 130 mm[Hg] e CW1 ([facility]) Diastolic blood pressure 80 mm[Hg] 80 mm[Hg] eCW1 ([facility]) Patient Treatment Plan of Care Planned Activity Planned Date Details Description Data Source (s) Oxycodone Hydrochloride 5 MG Oral Tablet 01/05/2021 12:00:00 AM EDT eCW1 ([facility]) Oxycodone Hydrochloride 5 MG Oral Tablet 01/05/2021 12:00:00 AM EDT eCW1 ([facility]) Oxycodone Hydrochloride 5 MG Oral Tablet 12/31/2020 12:00:00 AM EDT eCW1 ([facility]) Oxycodone Hydrochloride 5 MG Oral Tablet 12/31/2020 12:00:00 AM EDT eCW1 ([facility])
[2021-02-11] MEDS ORDERED: KCL 10MEQ/100ML SWI (KRUN) 10 MEQ in IV 1 EA IV ONE ×2 (13:00→16:35)
[2021-02-11] MEDS ORDERED: MORPHINE 4 MG/ML 1ML VIAL/SYRINGE (J2270) IV ONE (13:50)
[2021-02-11 13:54] LABS: MAGNESIUM LEVEL 1.6 MG/DL (1.8-2.4); NT-PRO BNP 41 PG/ML (<125)
[2021-02-11 14:15] LABS: CK-MB VALUE MASS < 1.0 NG/ML (<3.6); CPK CREATINE PHOSPHOKINASE 93 U/L (26-192); MB/CK RELATIVE INDEX 1.08 (< OR =4); TROPONIN I < 0.02 NG/ML (< 0.10)
[2021-02-11] MEDS ORDERED: POTASSIUM CHLORIDE 10MEQ SR TABLET PO ONE ×2 (14:20→16:35)
[2021-02-11] MEDS ORDERED: ACAM0.05 PO (14:47)
[2021-02-11] MEDS ORDERED: METH16TA2 PO (14:47)
[2021-02-11] MEDS ORDERED: HOME MED LIST COMPLETE! XX SCH (14:50)
--- OUTSIDE RECORDS SUMMARY | 2021-02-11 15:21 | CCD ---
Author Author [facility] Organization [facility] Address Unknown Phone Unavailable Support Name Relationship Address Phone NONE, NONE Next Of Kin [address] [facility] [place] [address] [employer] Next Of Kin [address] [place] [address] DASHNAW, COURTNEY Next Of Kin [address] [place] [address] [place] [address] Dom Boss Next Of Kin Unknown Unavailable Dick Franklin Next Of Kin [address] [address] Unavailable LITTLE MONKEYS 123 Next Of Kin [address] [place] [address] JESÚS [place] [address] [place] [address] JESÚS PRYOR Next Of Kin [address] [facility] [address] [place] [address] DAWNA CHEN Next Of Kin [address] [address] [place] Next Of Kin - -, [place] - - JESÚS ANGEL Next Of Kin [address] [facility] [address] [place] [address] UE Next Of Kin Unknown Unavailable CHRISTINA MENDIOLA Next Of Kin [address] [place] [address] Beau Gallegos Next Of Kin [address] [place] [address] [place] Next Of Kin [address] [address] [place]IO [place] [address] OME Next Of Kin [address] [place] [address] CHASITY Next Of Kin [address] [place], [place] [address] UN Next Of Kin Unknown Unavailable [place] [address] none, none ECON [address] [place] [address] Francisco FULLER ECON [address] [place] [address] Unavailable Dom Boss ECON [address] [facility] [address] [place] [address] Unavailable Dick Franklin ECON [address] [facility] [address] [place] [address] Unavailable Sergei Angel ECON [address] [place] [address] Unavailable Care Team Providers Care 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 Name Role Phone Luz JUAN MD Unavailable [...] Unavailable Luz JUAN MD Unavailable Unavailable Luz UJAN MD Unavailable Unavailable DRAKELuz ALEMAN MD Unavailable [...] Unavailable Unavailable Luz JUAN MD Unavailable Unavailable uLz JUAN MD Unavailable Unavailable Luz JUAN MD [...] Luz KIM MD Unavailable Unavailable DRAKE, Luz KMI MD Unavailable Unavailable DRAKE, Luz KIM MD [...] KIM MD Unavailable Unavailable Rosario, E Yoana BENEFITS SPECIALIST Unavailable Unavailable Rosario, E Yoana BENEFITS SPECIALIST Unavailable Unavailable Rosario, E Yoana BENEFITS SPECIALIST Unavailable Unavailable Rosario, E Yoana BENEFITS SPECIALIST Unavailable Unavailable Rosario, E Yoana BENEFITS SPECIALIST Unavailable Unavailable Rosario, E Yoana BENEFITS SPECIALIST Unavailable Unavailable Rosario, E Yoana BENEFITS SPECIALIST Unavailable Unavailable Rosario, E Yoana BENEFITS SPECIALIST Unavailable Unavailable Rosario, E Yoana BENEFITS SPECIALIST Unavailable Unavailable Rosario, E Yoana BENEFITS SPECIALIST Unavailable Unavailable Rosario, E Yoana BENEFITS SPECIALIST Unavailable Unavailable Rosario, E Yoana BENEFITS SPECIALIST Unavailable Unavailable Rosario, E Yoana BENEFITS SPECIALIST Unavailable Unavailable Rosario, E Yoana BENEFITS SPECIALIST Unavailable Unavailable Rosario, E Yoana BENEFITS SPECIALIST Unavailable Unavailable Rosario, E Yoana BENEFITS SPECIALIST Unavailable Unavailable Rosario, E Yoana BENEFITS SPECIALIST Unavailable Unavailable Rosario, E Yoana BENEFITS SPECIALIST Unavailable Unavailable Rosario, E Yoana BENEFITS SPECIALIST Unavailable Unavailable Rosario, E Yoana BENEFITS SPECIALIST Unavailable Unavailable Rosario, E Yoana BENEFITS SPECIALIST Unavailable Unavailable Rosario, E Yoana BENEFITS SPECIALIST Unavailable Unavailable Rosario, E Yoana BENEFITS SPECIALIST Unavailable Unavailable Rosario, E Yoana BENEFITS SPECIALIST Unavailable Unavailable Rosario, E Yoana BENEFITS SPECIALIST Unavailable Unavailable Rosario, E Yoana BENEFITS SPECIALIST Unavailable Unavailable Rosario, E Yoana BENEFITS SPECIALIST Unavailable Unavailable Rosario, E Yoana BENEFITS SPECIALIST Unavailable Unavailable Rosario, E Yoana BENEFITS SPECIALIST Unavailable Unavailable Rosario, E Yoana BENEFITS SPECIALIST Unavailable Unavailable Rosario, E Yoana BENEFITS SPECIALIST Unavailable Unavailable Rosario, E Yoana BENEFITS SPECIALIST Unavailable Unavailable Rosario, E Yoana BENEFITS SPECIALIST Unavailable Unavailable Re-disclosure Warning The records that [...] is protected by Article 27-F of the [facility] Public Health law. If you continue you may have access to information: Regarding HIV / AIDS; Provided by facilities licensed or operated by the [facility] Office of Mental Health; or Provided by the [facility] Office for People With Developmental Disabilities. If such information is present, then the following [facility] mandated warning applies: This information has [...] law may result in a fine or halfway sentence or both. A general authorization for the release of medical or other information is NOT sufficient authorization for further disc losure. Family History Family Member Name Family Member Gender Family Member Status Date o f Status Description Data Source(s) Unknown Condition [facility] Encounters Encounter Providers Location Date Indications Data Source(s ) Unknown [address] [facility] [address] [id number] 01/11/2021 12:00:00 AM EDT eCW1 (Formerly [facility], [facility]) Outpatient [address] [facility] [address] [id number] 01/05/2021 12:00:00 AM EDT eCW1 (Formerly [facility], [facility]1983) Unknown [address] [facility] [address] [id number] 12/31/2020 12:00:00 AM EDT eCW1 (Formerly [facility], [facility]1983) Outpatient [address] [facility] [address] [id number] 12/29/2020 12:00:00 AM EDT eCW1 (Formerly [facility], [facility]) Outpatient 12/10/2020 05:10:48 PM EDT - 021 05:46:17 PM EDT [facility] ([facility]) Recurring Patient Attender: Yoana Rosario NPReferrer: JULIO RUBIO MD 04/14/2020 09:17:07 AM [facility] Medications Medication Brand Name Start Date Product Form Dose Route Admi nistrative Instructions Pharmacy Instructions Status Indications Reaction Description Data Source(s) Oxycodone Hydrochloride 5 MG Oral Tablet oxyCODONE HCl 5 MG oxyCODONE HCl 5 MG 01/05/2021 12:00:00 AM EDT 1.0 {tablet_as_needed} active oxyCODONE HCl 5 MG eCW1 ([facility]) Oxycodone Hydrochloride 5 MG Oral Tablet oxyCODONE HCl 5 MG oxyCODONE HCl 5 MG 01/05/2021 12:00:00 AM EDT 1.0 {tablet_as_needed} active oxyCODONE HCl 5 MG eCW1 ([facility]) Oxycodone Hydrochloride 5 MG Oral Tablet oxyCODONE HCl 5 MG oxyCODONE HCl 5 MG 12/31/2020 12:00:00 AM EDT 1.0 {tablet_as_needed} active oxyCODONE HCl 5 MG eCW1 ([facility]) Oxycodone Hydrochloride 5 MG Oral Tablet oxyCODONE HCl 5 MG oxyCODONE HCl 5 MG 12/31/2020 12:00:00 AM EDT 1.0 {tablet_as_needed} active oxyCODONE HCl 5 MG eCW1 ([facility]) Levonorgestrel 20 MCG/24HR UNK 12/19/2020 12:00:00 AM EDT active Levonorgestrel 20 MCG/24HR eCW1 ([facility]) Levonorgestrel 20 MCG/24HR UNK 12/19/2020 12:00:00 AM EDT active Levonorgestrel 20 MCG/24HR eCW1 ([facility]) Levonorgestrel 20 MCG/24HR UNK 12/19/2020 12:00:00 AM EDT active Levonorgestrel 20 MCG/24HR eCW1 ([facility]) Levonorgestrel 20 MCG/24HR UNK 12/19/2020 12:00:00 AM EDT active Levonorgestrel 20 MCG/24HR eCW1 ([facility]) Insurance Providers Payer name Policy type / Coverage type Policy ID Covered democrat ID Covered democrat's relationship to stewart Policy Stewart Plan Information MEDICAID M [id number] Self [id number] OTIS I [id number] Self [id number] [place] Other 0 [id number] Self 0 [place] Other 0 [id number] Self 0 [place] Other 0 [id number] Self 0 [place] Other [id number] Self [place] Other 0 [id number] Self 0 [place] Other 0 [id number] Self 0 [place] Other 0 [id number] Self 0 [place] Other 0 [id number] Self 0 [place] Other 0 [id number] Self 0 [place] Other 0 [id number] Self 0 [place] Other 0 [id number] Self 0 [place] Other 0 [id number] Self 0 [place] Other 0 [id number] Self 0 [place] Other 0 [id number] Self 0 [place] Other 0 [id number] Self 0 OTIS [id number] SP [id number] [place] Other 0 [id number] Self 0 [place] Other 0 [id number] Self 0 [place] [id number] SP [id number] [id number] [place] Other 0 [id number] Self 0 OTIS [id number] SP [id number] [place] Other 0 [id number] Self 0 [place] Other 0 [id number] Self 0 [place] Other 0 [id number] Self 0 [place] Other 0 [id number] Self 0 [place] Other 0 [id number] Self 0 [place] Other 0 [id number] Self 0 OTIS [id number] SP [id number] [place] Other 0 [id number] Self 0 [place] Other 0 [id number] Self 0 [place] Other 0 [id number] Self 0 [place] Other 0 [id number] Self 0 [place] MEDICAID [id number] Ladan 7 [id number] [place] Other 0 [id number] Self 0 [place] F [id number] SELF 7 [id number] OTIS [id number] SP [id number] 800 OTIS [id number] SP [id number] OTIS [id number] SP [id number] [place] Medicaid F [id number] SELF [id number] [place] CARE [place] [id number] 0 [id number] OTIS [id number] SP [id number] 800 SELF PAY SELF PAY OTIS [id number] SP [id number] OTIS [id number] SP [id number] 800 SELF PAY OT[place] [id number] SP [id number] 800 SELF PAY OT[place] [id number] SP [id number] 800 SELF PAY [place] [employer]. [id number] Self [id number] [employer] UNAVAILABLE SP UNAVA ILABLE OTIS CARE [facility] [id number] 74 [id number] MEDICAID [facility] [id number] [place] Care [id number] Commercial In surance [place] Care [id number] Commercial Insurance [id number] [place] MEDICAID PI PI OTIS [id number] SP [id number] OTIS [id number] SP [id number] [place] Care [id number] Commercial Insurance [id number] MEDICAID [id number] SP [id number] OTIS [id number] SP [id number] TRA[employer]ELERS [id number] SP [id number] MedFocus [id number] 18 [id number] Med[employer] [id number] 18 [id number] [place] Care Medicaid [id number] Self TRAVELERS [id number] SP [id number] Problems, Conditions, and Diagnoses Code Display Name Description Problem Type Effective Dates Data Source(s) G89.4 568295143 Chronic pain syndrome Problem 01/05/2021 12: 00:00 AM EDT eCW1 ([facility]) F10.10 [id number] Alcohol abuse Problem 12/29/2020 12:00:00 AM EDT eCW1 ([facility]) D63.8 [id number] Anemia in other chronic diseases classifi ed elsewhere Problem 12/29/2020 12:00:00 AM EDT eCW1 ([facility]) G89.29 [id number] Other chronic pain Problem 12/29/2020 12:00: 00 AM EDT eCW1 ([facility]) K70.31 [id number] Alcoholic cirrhosis of liver with ascites Problem 12/29/2020 12:00:00 AM EDT eCW1 ([facility]) Surgeries/Procedures No Information Results ID Date Data Source [id number] 01/26/2021 11:08:59 AM EDT [facility] - CORE SPECIMEN DESCRIPTION SKINSPECIAL REQUESTS NONEGRAM STAIN FEW (<10/LPF) WHITE BLOOD CELLS NO BACTERIACULTURE RESULTS RARE METHICILLIN RESISTANT STAPH AUREUS ISOLATED. IF NEEDED, ADDITIONAL SUSCEPTIBILITY RESULTS MA Y BE OBTAINED BY CONTACTING THE [facility] ([phone]).RESULT(S) CALLED TO AND READ BACK BY DELVIN AT 0624 [place] FAXED [phone] ON [id number]. REPORT STATUS FINAL 01/26/2021ORGANISM METHICILLIN RESISTANT STAPH [...] rce(s) Supporting Document(s) ID Date Data Source [id number] 12/25/2020 02:49:00 AM EDT [facility] Name Value Range Interpretation Code Description Data Rosario rce(s) Supporting Document(s) SARS coronavirus 2 RNA [Presence] in Res piratory specimen by EDISON with probe detection NEGATIVE [facility] This lab was ordered by [facility] a nd reported by [facility]. ID Date Data Source [id number] 12/17/2020 01:08:00 PM EDT [facility] Name Value Range Interpretation Code Description Data Rosario rce(s) Supporting Document(s) SARS coronavirus 2 RNA [Presence] in Res piratory specimen by EDISON with probe detection NEGATIVE [facility] This lab was ordered by [facility] a nd reported by [facility]. ID Date Data Source [id number] 12/10/2020 05:30:00 PM EDT [facility] Name Value Range Interpretation Code Description Data Rosario rce(s) Supporting Document(s) SARS-CoV-2 RNA Resp Ql EDISON+probe NOT DETECTED [facility] This lab was ordered by [facility] and reported by [facility]. Procedure Social History Code Duration Value Status Description Data Source(s ) Smoking 01/05/2021 12:00:00 AM EDT Never Smoker completed Never S moker eCW1 ([facility]) Smoking 01/05/2021 12:00:00 AM EDT Never Smoker completed Never S moker eCW1 ([facility]) Smoking 12/29/2020 12:00:00 AM EDT Never Smoker completed Never S moker eCW1 ([facility]) Smoking 12/29/2020 12:00:00 AM EDT Never Smoker completed Never S moker eCW1 ([facility]) Vital Signs ID Date Data Source UNK Name Value Range Interpretation Code Description Data Source(s) Body weight 153.8 [lb_av] 153.8 [lb_av] eCW1 ([facility]) Body height [in_i] eCW1 ([facility]) Body mass index (BMI) [Ratio] 26.40 kg/m2 26.40 kg/m2 eCW1 ([facility]) Heart rate 124 /min 124 /min eCW1 ([facility]) Respiratory rate 18 /min 18 /min eCW1 ([facility]) Body temperature 99 [degF] 99 [degF] eCW1 ([facility]) Systolic blood pressure 120 mm[Hg] 120 mm[Hg] e CW1 ([facility]) Diastolic blood pressure 70 mm[Hg] 70 mm[Hg] eCW1 ([facility]) Body weight 145 [lb_av] 145 [lb_av] eCW1 ([facility]) Body height [in_i] eCW1 ([facility]) Respiratory rate 18 /min 18 /min eCW1 ([facility]) Heart rate 103 /min 103 /min eCW1 ([facility]) Body temperature 98.2 [degF] 98.2 [degF] eCW1 ( [facility]) Systolic blood pressure 130 mm[Hg] 130 mm[Hg] e CW1 ([facility]) Diastolic blood pressure 80 mm[Hg] 80 mm[Hg] eCW1 ([facility]) Body mass index (BMI) [Ratio] 24.89 kg/m2 24.89 kg/m2 eCW1 ([facility]) Patient Treatment Plan of Care Planned Activity Planned Date Details Description Data Source (s) Oxycodone Hydrochloride 5 MG Oral Tablet 01/05/2021 12:00:00 AM EDT eCW1 ([facility]) Oxycodone Hydrochloride 5 MG Oral Tablet 01/05/2021 12:00:00 AM EDT eCW1 ([facility]) Oxycodone Hydrochloride 5 MG Oral Tablet 12/31/2020 12:00:00 AM EDT eCW1 ([facility]) Oxycodone Hydrochloride 5 MG Oral Tablet 12/31/2020 12:00:00 AM EDT eCW1 ([facility])
[2021-02-11] MEDS: MAG SULF 1GM/100ML (MAG RUN) 1 GM in IV 1 EA IV SCH ×2 (18:22→20:38)
--- NOTE | 2021-02-11 19:00 | HPEPDOC ---
General Date of Admission 02/11/21 Date of Service: Feb 11, 2021 Chief Complaint The patient is a 40-year-old female admitted with a reason for visit of Abd Pain. History of Present Illness 40-year-old female with history of decompensated alcoholic cirrhosis of liver with ascites, thrombocytopenia, coagulopathy, gastric bypass surgery for morbid obesity in 2017, chronic anemia, jaundice,. Direct presented to the ED on 02/11/2021 with complaints of abdominal distention and pain which is worsened over the past 3 to 4 days. Patient rated the pain as 10/10 sharp stretching kind and spread all over the abdomen . Patient was noted to have significant ascites. Her last paracentesis was on 01/18/2021. Patient has not followed up with the primary care provider or GI. Work-up in the ED showed gross electrolyte abnormalities with a potassium of 2.9 and a magnesium of 1.6. It also showed hemoglobin of 8.8. Platelet of 42. INR of 1.99. Patient also had abnormal LFTs which are chronic with direct hyperbilirubinemia. With a total bilirubin of 13.3 and direct bilirubin of 8.1. Patient was admitted for decompensated cirrhosis of liver with massive ascites and electrolyte abnormalities. Home Medications Scheduled Acamprosate Calcium (Acamprosate Calcium) 333 Mg Tablet.dr, 666 MG PO TID, (Reported) Biotin (Biotin) 5 Mg Tablet, 5,000 MCG PO DAILY, (Reported) Cholecalciferol (Vitamin D3) (Vitamin D3) 1,000 Unit Tablet, 1,000 UNITS PO DAILY, (Reported) Folic Acid (Folic Acid) 1 Mg Tablet, 1 MG PO DAILY, (Reported) Furosemide (Furosemide) 20 Mg Tablet, 20 MG PO DAILY, (Reported) Lactulose (Lactulose) 10 Gm/15 Ml Solution, 15 ML PO DAILY, (Reported) Levonorgestrel (Mirena) 1 Each Iud, 20 MCG IU ASDIRECTED, (Reported) Methylprednisolone (Methylprednisolone) 16 Mg Tablet, 32 MG PO DAILY, (Reported) Pantoprazole Sodium (Pantoprazole Sodium) 40 Mg Tablet.dr, 40 MG PO DAILY, (Reported) Spironolactone (Spironolactone) 25 Mg Tablet, 25 MG PO DAILY, (Reported) Thiamine HCl (Vitamin B-1) 100 Mg Tablet, 100 MG PO DAILY, (Reported) Allergies Coded Allergies: prednisone (Verified Allergy, Intermediate, hives/flushing, 09/21/19) Past Medical History Medical History Decompensated alcohol cirrhosis of liver with ascites in 2019, last paracentesis January 18, 2021 Thrombocytopenia Coagulopathy related to cirrhosis H/o Morbid obesity s/p gastric bypass in 2017 Alcohol use disorder H/o Alcoholic Hepatitis Chronic macrocytic anemia Surgical History Cholecystectomy, Gastric sleeve surgery Gastric sleeve reversal gastric bypass surgery, Ovarian cyst removal Right ankle fracture in 2019 s/p ORIF Family History Father had a stroke Social History * Smoker: current smoker Alcohol: heavy Review of Systems Constitutional: Reports: Fatigue; Denies: Chills, Fever, Night Sweats Eyes: Denies: Pain, Vision change ENT: Denies: Head Aches, Ear Pain, Dysphagia Skin: Reports: Rash, Jaundice Pulmonary: Denies: Dyspnea, Cough Cardiovascular: Reports: Edema; Denies: Chest Pain, Palpitations, Orthopnea, Paroxysmal Noc. Dyspnea Gastrointestinal: Reports: Abdominal Pain, Other Symptoms (Distention) Genitourinary: Denies: Dysuria, Frequency, Incontinence, Retention Hematologic: Denies: Bruising, Bleeding Excessively Musculoskeletal: Denies: Neck Pain, Back Pain Neurological: Denies: Weakness, Numbness, Change in speech, Confusion Physical Examination General Exam: Positive: Alert, Cooperative, No Acute Distress Eye Exam: Positive: PERRLA, Conjunctiva & lids normal, EOMI, Sclera icteric ENT Exam: Positive: Atraumatic, Mucous membr. moist/pink, Pharynx Normal Neck Exam: Positive: Supple; Negative: JVD, thyromegaly Chest Exam: Positive: Clear to auscultation, Diminished (Diminished at the bases) Heart Exam: Positive: Tachycardic, Regular Rhythm, Normal S1, Normal S2, Murmurs (Soft systolic murmur); Negative: Rubs Abdomen Exam: Positive: Normal bowel sounds, Soft, Tenderness (In all the quadrant), Other (Distended with ascites) Extremity Exam: Positive: Edema (4+ pedal edema); Negative: Clubbing, Cyanosis Psych Exam: Positive: Memory Intact, Oriented x 3 Vital Signs Vital Signs Date Time Temp Pulse Resp B/P (MAP) Pulse Ox O2 Delivery O2 Flow Rate FiO2 02/11/21 14:27 98.7 113 16 145/66 (92) 96 Room Air Laboratory Data Labs 24H Laboratory Tests 2 02/11/21 10:48: Immature Granulocyte % (Auto) 1.1, Neutrophils (%) (Auto) 72.6H, Lymphocytes (%) (Auto) 15.1L, Monocytes (%) (Auto) 10.0H, Eosinophils (%) (Auto) 0.6, Basophils (%) (Auto) 0.6, Neutrophils # (Auto) 5.2, Lymphocytes # (Auto) 1.1L, Monocytes # (Auto) 0.7, Eosinophils # (Auto) 0.0, Basophils # (Auto) 0.0, Nucleated Red Blood Cells % (auto) 0.0, Immature Platelet Fraction 4.5, Prothrombin Time 23.0H, Prothromb Time International Ratio 1.99, Activated Partial Thromboplast Time 42.4H, Anion Gap 10, Glomerular Filtration Rate > 60.0, Calcium Level 8.0L, Magnesium Level 1.6L, Total Bilirubin 13.3H, Direct Bilirubin 8.1H, Aspartate Amino Transf (AST/SGOT) 151H, Alanine Aminotransferase (ALT/SGPT) 48, Alkaline Phosphatase 224H, Total Creatine Kinase 91, Creatine Kinase MB < 1.0, Creatine Kinase MB Relative Index 1.10, Troponin I < 0.02, ZZ-Utv-[id number]-Type Natriuretic Peptide 41, Total Protein 6.7, Albumin 2.1L, Albumin/Globulin Ratio 0.5L, Amylase Level 49, Lipase 217 02/11/21 11:08: Coronavirus (COVID-19)(PCR) NEGATIVE, Influenza Type A (RT-PCR) NEGATIVE, Influenza Type B (RT-PCR) NEGATIVE, Respiratory Syncytial Virus (PCR) NEGATIVE 02/11/21 12:48: Total Creatine Kinase 93, Creatine Kinase MB < 1.0, Creatine Kinase MB Relative Index 1.08, Troponin I < 0.02 CBC/BMP Laboratory Tests 02/11/21 10:48 Assessment/Plan 40-year-old female with history of decompensated alcoholic cirrhosis of liver with ascites, thrombocytopenia, coagulopathy, gastric bypass surgery for morbid obesity in 2017, chronic anemia, jaundice,. Direct presented to the ED on 02/11/2021 with complaints of abdominal distention and pain which is worsened over the past 3 to 4 days. Patient rated the pain as 10/10 sharp stretching kind and spread all over the abdomen . Patient was noted to have significant ascites. Her last paracentesis was on 01/18/2021. Patient has not followed up with the primary care provider or GI. Work-up in the ED showed gross electrolyte abnormalities with a potassium of 2.9 and a magnesium of 1.6. It also showed hemoglobin of 8.8. Platelet of 42. INR of 1.99. Patient also had abnormal LFTs which are chronic with direct hyperbilirubinemia. With a total bilirubin of 13.3 and direct bilirubin of 8.1. Patient was admitted for decompensated cirrhosis of liver with massive ascites and electrolyte abnormalities. Hypokalemia and hypomagnesemia We will replace IV and po. Decompensated cirrhosis of liver with ascites, thrombocytopenia, coagulopathy, portal hypertension We will schedule for therapeutic paracentesis Continue with lactulose, Lasix, spironolactone Cholestatic jaundice Due to decompensated cirrhosis of liver Chronic anemia Macrocytic Hemoglobin is stable Alcohol abuse Says that she last took alcohol in November 2020 Continue thiamine folate and acamprosate Alcoholic hepatitis Continue Medrol 32 mg daily. We will start slow taper Plan / VTE VTE Prophylaxis Ordered?: Yes Sulema Joy MD Feb 11, 2021 15:25
[2021-02-11] MEDS: LACTULOSE 20 GM/30 ML SYRUP UD PO SCH (19:38)
[2021-02-11] MEDS: PANTOPRAZOLE 40MG TAB (PROTONIX) PO SCH (19:38)
[2021-02-11] MEDS: FUROSEMIDE 20 MG TAB PO SCH (19:39)
[2021-02-11] MEDS: traMADol 50 MG TAB PO PRN (19:39)
[2021-02-11] MEDS: THIAMINE 100 MG TAB PO SCH (19:39)
[2021-02-11] MEDS ORDERED: MAG SULF 1GM/100ML (MAG RUN) 1 GM in IV 1 EA IV ONE (19:50)
[2021-02-11 22:42] VITALS: BP 115/60
[2021-02-12] VITALS (7 sets, daily range): BP systolic 109–122; BP diastolic 58–67
[2021-02-12] MEDS: ACAMPROSATE CALCIUM 333 MG TABLET (CAMPRAL) PO SCH ×2 (00:04→08:26)
[2021-02-12] MEDS: POTASSIUM CHLORIDE 10MEQ SR TABLET PO SCH ×2 (00:05→08:28)
[2021-02-12 00:14] LABS: BLOOD UREA NITROGEN 5 MG/DL (7-18); CALCIUM LEVEL 7.2 MG/DL (8.5-10.1); CARBON DIOXIDE LEVEL 31 MEQ/L (21-32); CHLORIDE LEVEL 101 MEQ/L (98-107); CREATININE FOR GFR 0.46 MG/DL (0.55-1.30); GLOMERULAR FILTRATION RATE > 60.0 (>60); GLUCOSE, FASTING 104 MG/DL (70-100); MAGNESIUM LEVEL 1.7 MG/DL (1.8-2.4); POTASSIUM SERUM 3.2 MEQ/L (3.5-5.1); SODIUM LEVEL 138 MEQ/L (136-145)
[2021-02-12] MEDS ORDERED: MORPHINE 2 MG/ML 1ML VIAL (J2270) IV ONE (02:35)
[2021-02-12] MEDS: traMADol 50 MG TAB PO PRN (05:38)
[2021-02-12 06:32] LABS: BASO % 0.4 % (0.0-1.0); EOS % 0.6 % (0.0-3.0); HEMATOCRIT 25.8 % (36.0-47.0); HEMOGLOBIN 8.2 g/dl (12.0-15.5); LYMPH # 0.6 10^3/uL (1.5-5.0); MEAN CORPUSCULAR HEMOGLOBIN 34.7 pg (27.0-33.0); MEAN CORPUSCULAR HGB CONC 31.8 g/dl (32.0-36.5); MEAN CORPUSCULAR VOLUME 109.3 fl (80.0-96.0); MONO # 0.2 10^3/uL (0.0-0.8); MONO % 3.2 % (2.0-8.0); NEUTROPHILS # 5.8 10^3/uL (1.5-8.5); NEUTROPHILS % 85.6 % (36.0-66.0); RED BLOOD COUNT 2.36 10^6/uL (4.00-5.40); WHITE BLOOD COUNT 6.8 10^3/uL (4.0-10.0)
[2021-02-12 06:33] LABS: PLATELET COUNT, AUTOMATED 38 10^3/uL (150-450)
[2021-02-12 07:05] LABS: ALBUMIN 1.9 GM/DL (3.2-5.2); ALT/SGPT 44 U/L (12-78); BILIRUBIN,TOTAL 16.1 MG/DL (0.2-1.0); BLOOD UREA NITROGEN 5 MG/DL (7-18); CALCIUM LEVEL 7.8 MG/DL (8.5-10.1); CARBON DIOXIDE LEVEL 29 MEQ/L (21-32); CHLORIDE LEVEL 101 MEQ/L (98-107); CREATININE FOR GFR 0.45 MG/DL (0.55-1.30); GLOMERULAR FILTRATION RATE > 60.0 (>60); GLUCOSE, FASTING 144 MG/DL (70-100); MAGNESIUM LEVEL 1.8 MG/DL (1.8-2.4); POTASSIUM SERUM 4.1 MEQ/L (3.5-5.1); SODIUM LEVEL 136 MEQ/L (136-145); TOTAL PROTEIN 6.3 GM/DL (6.4-8.2)
[2021-02-12] MEDS: LACTULOSE 20 GM/30 ML SYRUP UD PO SCH (08:27)
[2021-02-12] MEDS: PANTOPRAZOLE 40MG TAB (PROTONIX) PO SCH (08:28)
[2021-02-12] MEDS: THIAMINE 100 MG TAB PO SCH (08:28)
[2021-02-12] MEDS: FUROSEMIDE 20 MG TAB PO SCH (08:28)
[2021-02-12] MEDS: SPIRONOLACTONE 25 MG TAB PO SCH (08:28)
[2021-02-12] MEDS ORDERED: FOLIC ACID 1 MG TAB PO SCH (09:00)
[2021-02-12] MEDS ORDERED: SODIUM BICARBONATE 8.4% INJ 50MEQ 50 ML VIAL As Ordered ONE (10:04)
[2021-02-12] MEDS ORDERED: oxyCODONE 5MG TAB PO ONE (12:15)
[2021-02-12] MEDS ORDERED: POTA1TAB14 PO (15:06)
--- NOTE | 2021-02-12 15:42 | REP ---
INDICATION: alcoholic cirrhosis with ascites. COMPARISON: None. TECHNIQUE: The procedure was performed under the direct supervision of Dr. Trujillo. The risks and benefits of the procedure were explained to the patient and informed consent was obtained. The largest pocket of fluid was localized in the left flank using ultrasound guidance. The skin was prepped and draped in a sterile fashion. 10 mL of 1% buffered lidocaine was used as a local anesthetic. An 8-[place] Islander multi side-hole catheter was inserted using trocar technique.2700 mL of yellow fluid was withdrawn and discarded. Estimated blood loss: Less than 1 mL The patient tolerated the procedure well and there were no immediate complications. After the appropriate amount of monitored convalescence, the patient was discharged from the department. FINDINGS: None IMPRESSION: Ultrasound-guided paracentesis [id number] mL of yellow fluid. <Electronically signed by Fabian Turner > 02/12/21 1512 <Electronically signed by Seth Trujillo > 02/12/21 4533
--- NOTE | 2021-02-12 16:21 | DS.PDOC ---
Discharge Summary General Date of Admission Feb 11, 2021 at 15:05 Date of Discharge 02/12/21 Discharge Summary PROCEDURES PERFORMED DURING STAY: Paracentesis DISCHARGE DIAGNOSES: Decompensated alcohol cirrhosis of liver with ascites, coagulopathy, thrombocytopenia Hypokalemia Hypomagnesemia Secondary diagnoses gastric bypass surgery for morbid obesity in 2017, chronic anemia, cholestatic jaundice COMPLICATIONS/CHIEF COMPLAINT: Decompensation Of Cirrhosis Of Liver. HOSPITAL COURSE: 40-year-old female with history of decompensated alcoholic cirrhosis of liver with ascites, thrombocytopenia, coagulopathy, gastric bypass surgery for morbid obesity in 2017, chronic anemia, jaundice,. Direct presented to the ED on 02/11/2021 with complaints of abdominal distention and pain which is worsened over the past 3 to 4 days. Patient rated the pain as 10/10 sharp stretching kind and spread all over the abdomen . Patient was noted to have significant ascites. Her last paracentesis was on 01/18/2021. Patient has not followed up with the primary care provider or GI. Work-up in the ED showed gross electrolyte abnormalities with a potassium of 2.9 and a magnesium of 1.6. It also showed hemoglobin of 8.8. Platelet of 42. INR of 1.99. Patient also had abnormal LFTs which are chronic with direct hyperbilirubinemia. With a total bilirubin of 13.3 and direct bilirubin of 8.1. Patient was admitted for decompensated cirrhosis of liver with massive ascites and electrolyte abnormalities. Hypokalemia and hypomagnesemia Replaced Decompensated cirrhosis of liver with ascites, thrombocytopenia, coagulopathy, portal hypertension Status post paracentesis on 02/12/2021 with removal of 2.9 L of fluid Continue with lactulose, Lasix, spironolactone Needs to be set up for outpatient paracentesis Cholestatic jaundice Due to decompensated cirrhosis of liver Chronic anemia Macrocytic Hemoglobin is stable Alcohol abuse Says that she last took alcohol in November 2020 Continue thiamine folate and acamprosate History of alcoholic hepatitis in December 2020 Finished methylprednisone DISCHARGE MEDICATIONS: Please see below. ALLERGIES: Please see below. PHYSICAL EXAMINATION ON DISCHARGE: VITAL SIGNS: Please see below. General Exam: Positive: Alert, Cooperative, No Acute Distress Eye Exam: Positive: PERRLA, Conjunctiva & lids normal, EOMI, Sclera icteric ENT Exam: Positive: Atraumatic, Mucous membr. moist/pink, Pharynx Normal Neck Exam: Positive: Supple; Negative: JVD, thyromegaly Chest Exam: Positive: Clear to auscultation, Diminished (Diminished at the bases) Heart Exam: Positive: Tachycardic, Regular Rhythm, Normal S1, Normal S2, Murmurs (Soft systolic murmur); Negative: Rubs Abdomen Exam: Positive: Normal bowel sounds, Soft, Tenderness (In all the quadrant), Other (Distended with ascites) Extremity Exam: Positive: Edema (4+ pedal edema); Negative: Clubbing, Cyanosis Psych Exam: Positive: Memory Intact, Oriented x 3 LABORATORY DATA: Please see below. ACTIVITY: [As tolerated]. DIET: 2 g sodium fluid restriction 1800 cc DISCHARGE PLAN: Home DISCHARGE INSTRUCTIONS: Follow-up with PMD in 1 week Follow-up with GI. Referral already sent by PMD DISCHARGE CONDITION: [Stable]. TIME SPENT ON DISCHARGE: 35 minutes. Vital Signs/I&Os Vital Signs Date Time Temp Pulse Resp B/P (MAP) Pulse Ox O2 Delivery O2 Flow Rate FiO2 02/12/21 16:15 94 18 100 Room Air 02/12/21 12:00 97.5 111/66 (81) I&O- Last 24 Hours up to 6 AM 02/12/21 06:00 Intake Total 740 ml Output Total 350 ml Balance 390 ml Laboratory Data Labs 24H Laboratory Tests 2 02/11/21 23:41: Anion Gap 6L, Glomerular Filtration Rate > 60.0, Calcium Level 7.2L, Magnesium Level 1.7L 02/12/21 05:51: Anion Gap 6L, Glomerular Filtration Rate > 60.0, Calcium Level 7.8L, Magnesium Level 1.8, Immature Granulocyte % (Auto) 1.2, Neutrophils (%) (Auto) 85.6H, Lymphocytes (%) (Auto) 9.0L, Monocytes (%) (Auto) 3.2, Eosinophils (%) (Auto) 0.6, Basophils (%) (Auto) 0.4, Neutrophils # (Auto) 5.8, Lymphocytes # (Auto) 0.6L, Monocytes # (Auto) 0.2, Eosinophils # (Auto) 0.0, Basophils # (Auto) 0.0, Nucleated Red Blood Cells % (auto) 0.0, Total Bilirubin 16.1*H, Aspartate Amino Transf (AST/SGOT) 124H, Alanine Aminotransferase (ALT/SGPT) 44, Alkaline Phosphatase 208H, Total Protein 6.3L, Albumin 1.9L, Albumin/Globulin Ratio 0.4L CBC/BMP Laboratory Tests 02/11/21 23:41 02/12/21 05:51 Discharge Medications Scheduled Acamprosate Calcium (Acamprosate Calcium) 333 Mg Tablet.dr, 666 MG PO TID, (Reported) Biotin (Biotin) 5 Mg Tablet, 5,000 MCG PO DAILY, (Reported) Cholecalciferol (Vitamin D3) (Vitamin D3) 1,000 Unit Tablet, 1,000 UNITS PO DAILY, (Reported) Folic Acid (Folic Acid) 1 Mg Tablet, 1 MG PO DAILY, (Reported) Furosemide (Furosemide) 20 Mg Tablet, 20 MG PO DAILY, (Reported) Lactulose (Lactulose) 10 Gm/15 Ml Solution, 15 ML PO DAILY, (Reported) Levonorgestrel (Mirena) 1 Each Iud, 20 MCG IU ASDIRECTED, (Reported) Pantoprazole Sodium (Pantoprazole Sodium) 40 Mg Tablet.dr, 40 MG PO DAILY, (Reported) Potassium Chloride (Potassium Chloride) 20 Meq Tablet.er, 1 TAB PO DAILY Spironolactone (Spironolactone) 25 Mg Tablet, 25 MG PO DAILY, (Reported) Thiamine HCl (Vitamin B-1) 100 Mg Tablet, 100 MG PO DAILY, (Reported) Allergies Coded Allergies: prednisone (Verified Allergy, Intermediate, hives/flushing, 09/21/19) Sulema Joy MD Feb 12, 2021 16:21
--- NOTE | 2021-02-13 07:49 | ECGEPIP ---
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
--- NOTE | 2021-02-13 07:58 | ECGEPIP ---
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
== END 2021-02-12 16:20 | disposition home or self-care (01) | DRG 280 ==
LOC: M ED 10:24 → M ED INP 15:05 → M PCU 22:43
PROVIDERS: ADMIT Internal Medicine Nephrology; ATTEND Internal Medicine Nephrology
PROC: 0W9G3ZZ Drainage of Peritoneal Cavity, Percutaneous Approach (ICD-10-PCS; principal; 2021-02-12 10:03)
DX: K70.31 Alcoholic cirrhosis of liver with ascites (principal); D68.4 Acquired coagulation factor deficiency; K76.6 Portal hypertension; D69.6 Thrombocytopenia, unspecified; E83.42 Hypomagnesemia; K70.11 Alcoholic hepatitis with ascites; E87.6 Hypokalemia; F17.200 Nicotine dependence, unspecified, uncomplicated; D53.9 Nutritional anemia, unspecified; F10.10 Alcohol abuse, uncomplicated; Z20.822 Contact with and (suspected) exposure to COVID-19; Z79.899 Other long term (current) drug therapy; Z88.8 Allergy status to other drugs, medicaments and biological substances; Z90.49 Acquired absence of other specified parts of digestive tract; Z98.84 Bariatric surgery status

== ENCOUNTER 2021-03-10 04:15 | Inpatient (IN) | payer OTHER ==
[2021-03-10] VITALS (32 sets, daily range): BP systolic 71–104; BP diastolic 43–57
[~2021-03-10] VITALS: Ht 162.6 cm; Wt 70.0 kg
[~2021-03-10 04:15] MED LIST changes: +METH16TA2 PO; +POTA1TAB14 PO
[2021-03-10] MEDS ORDERED: NS 1,000 ML IV ONE ×4 (05:30→15:20)
[2021-03-10 05:42] LABS: HEMATOCRIT 24.5 % (36.0-47.0); HEMOGLOBIN 7.7 g/dl (12.0-15.5); MEAN CORPUSCULAR HEMOGLOBIN 42.1 pg (27.0-33.0); MEAN CORPUSCULAR HGB CONC 31.4 g/dl (32.0-36.5); RED BLOOD COUNT 1.83 10^6/uL (4.00-5.40); WHITE BLOOD COUNT 5.7 10^3/uL (4.0-10.0)
[2021-03-10 05:47] LABS: MEAN CORPUSCULAR VOLUME 133.9 fl (80.0-96.0); PLATELET COUNT, AUTOMATED 42 10^3/uL (150-450)
[2021-03-10] MEDS ORDERED: fentaNYL 100 MCG/2 ML INJECTION (J3010) IV ONE (06:00)
[2021-03-10 06:38] LABS: ANISOCYTOSIS 1+; EOSINOPHILS 1 % (0-3); LYMPHOCYTES 11 % (16-44); METAMYELOCYTES 1 % (0-0); MONOCYTES 16 % (0-5); NEUTROPHILS 54 % (28-66); NUCLEATED RED BLOOD CELL 1 % (0-0); PLATELET ESTIMATE DECREASED (NORMAL); POIKILOCYTOSIS 1+
[2021-03-10 06:43] LABS: ALBUMIN 1.4 GM/DL (3.2-5.2); ALT/SGPT 40 U/L (12-78); BILIRUBIN,TOTAL 25.7 MG/DL (0.2-1.0); BLOOD UREA NITROGEN 15 MG/DL (7-18); CALCIUM LEVEL 7.7 MG/DL (8.5-10.1); CARBON DIOXIDE LEVEL 15 MEQ/L (21-32); CHLORIDE LEVEL 95 MEQ/L (98-107); CREATININE FOR GFR 1.72 MG/DL (0.55-1.30); GLOMERULAR FILTRATION RATE 35.3 (>60); GLUCOSE, FASTING 50 MG/DL (70-100); MAGNESIUM LEVEL 1.6 MG/DL (1.8-2.4); POTASSIUM SERUM 2.7 MEQ/L (3.5-5.1); SODIUM LEVEL 134 MEQ/L (136-145); TOTAL PROTEIN 5.1 GM/DL (6.4-8.2)
--- NOTE | 2021-03-10 06:49 | REPVR ---
PROCEDURE INFORMATION: Exam: XR Chest Exam date and time: 03/10/2021 5:27 AM Age: 40 years old Clinical indication: Other: Sepsis TECHNIQUE: Imaging protocol: XR of the chest. Views: 1 view. COMPARISON: CR Abdomen,Flat Upright,PA CHEST 02/11/2021 10:50 AM FINDINGS: Lungs: There is low lung volume with atelectasis versus infiltrates in the medial right lower lung zone possibly in the middle lobe. Pleural spaces: Unremarkable. No pleural effusion. No pneumothorax. Heart/Mediastinum: Unremarkable. No cardiomegaly. Bones/joints: Unremarkable. IMPRESSION: Low lung volume with medial right lower lung zone atelectatic changes versus infiltrates. Electronically signed by: Hi Lemon On 03/10/2021 06:49:22 AM
[2021-03-10] MEDS: MORPHINE 2 MG/ML 1ML VIAL (J2270) IV PRN ×4 (06:54→11:06)
[2021-03-10] MEDS ORDERED: MAG SULF 1GM/100ML (MAG RUN) 1 GM in IV 1 EA IV ONE ×4 (06:55)
[2021-03-10] MEDS ORDERED: POTA1TAB14 PO (06:57)
[2021-03-10] MEDS ORDERED: HOME MED LIST COMPLETE! XX SCH (07:00)
[2021-03-10 07:02] LABS: INR 3.49; PROTHROMBIN TIME 35.3 SECONDS (12.7-14.5)
[2021-03-10 07:03] LABS: PARTIAL THROMBOPLASTIN TIME 65.4 SECONDS (25.9-37.0)
--- NOTE | 2021-03-10 07:14 | REPVR ---
PROCEDURE INFORMATION: Exam: CT Abdomen And Pelvis Without Contrast Exam date and time: 03/10/2021 5:27 AM Age: 40 years old Clinical indication: Fever and other: Jaundice; Additional info: Jaundice and fever TECHNIQUE: Imaging protocol: Computed tomography of the abdomen and pelvis without contrast. Radiation optimization: All CT scans at this facility use at least one of these dose optimization techniques: automated exposure control; mA and/or kV adjustment per patient size (includes targeted exams where dose is matched to clinical indication); or iterative reconstruction. COMPARISON: CT ABD W/IV PO CONTRAST 12/24/2020 9:44 PM FINDINGS: Diaphragm: There is small sliding hiatal hernia. Liver: The liver is enlarged, heterogeneous and hypoattenuated measuring up to 19.9 cm in mid clavicular line. Gallbladder and bile ducts: The patient is status post cholecystectomy. The CBD is probably slightly prominent. Pancreas: Normal. No ductal dilation. Spleen: The spleen is significantly enlarged measuring up to 18.0 centimetres in maximum dimensions. Adrenal glands: Normal. No mass. Kidneys and ureters: Normal. No hydronephrosis. Stomach and bowel: The patient is status post gastric bypass with grossly intact proximal and distal anastomoses. There is thickening of the ascending and transverse colon and to lesser extent the descending and rectosigmoid colon. Appendix: Patient is status post appendectomy. Intraperitoneal space: There is large abdominal ascites with fluid seen around the liver and spleen extending inferiorly along the paracolic gutters into the pelvis. Vasculature: Unremarkable. No abdominal aortic aneurysm. Lymph nodes: Shotty bilateral inguinal lymph nodes are seen. Upper abdominal perigastric and paraesophageal varices seen. Urinary bladder: The urinary bladder is contracted limiting its evaluation. Reproductive: IUD seen in place. Bones/joints: Unremarkable. No acute fracture. Soft tissues: There is diffuse subcutaneous edema. IMPRESSION: 1. Marked hepatosplenomegaly with severe fatty infiltration of the liver coupled with upper abdominal perigastric and paraesophageal varices in addition to significant third-spacing manifested by diffuse subcutaneous and mesenteric edema as well as large abdominal ascites. 2. Apparent thickened small and large bowel loops particularly the right and transverse colon. Although findings can be secondary to 3rd spacing underlying enteritis and or colitis cannot be excluded. 3. Status post gastric bypass with grossly intact anastomosis and no obstructive bowel gas pattern. 4. Small sliding hiatal hernia. 5. Status post cholecystectomy likely with mildly dilated CBD which could be physiologic post cholecystectomy phenomena however underlying obstructive process cannot be excluded. Correlate with bilirubin level. If indicated MRCP may be obtained for further evaluation. Electronically signed by: Hi Lemon On 03/10/2021 07:13:43 AM
[2021-03-10] MEDS: POTASSIUM CHLORIDE 10MEQ SR TABLET PO SCH ×2 (07:28→09:59)
[2021-03-10 07:41] LABS: RSV AMPLIFICATION NEGATIVE (NEGATIVE)
[2021-03-10] MEDS ORDERED: DEXTROSE 50% 50 ML SYRINGE IV STA ×3 (07:45→16:42)
--- NOTE | 2021-03-10 07:50 | REPVR ---
PROCEDURE INFORMATION: Exam: US Duplex Right Lower Extremity Veins, Limited Exam date and time: 03/10/2021 7:18 AM Age: 40 years old Clinical indication: Swelling (edema) of limb; Lower extremity, right; Additional info: Pain/swelling TECHNIQUE: Imaging protocol: Real-time Duplex ultrasound of the Right Lower Extremity with 2-D sorenson scale, color Doppler flow and spectral waveform analysis with image documentation. Limited exam was focused on the right lower extremity veins. COMPARISON: US Duplex, Ext LOWER veins, bilat 02/11/2021 11:33 AM FINDINGS: Right deep veins: The common femoral, femoral, proximal profunda femoral and popliteal veins are patent without thrombus. Normal Doppler waveforms. Normal compressibility and/or augmentation response. The infrapopliteal veins were not clearly seen. Right superficial veins: Unremarkable. Saphenofemoral junction is patent without thrombus. Soft tissues: Diffuse right lower extremity subcutaneous edema is seen more pronounced distally. IMPRESSION: No evidence of deep vein thrombosis in the right lower extremity or the contralateral left common femoral vein. Electronically signed by: Hi Lemon On 03/10/2021 07:49:10 AM
--- NOTE | 2021-03-10 08:15 | REP ---
INDICATION: sob COMPARISON: 03/10/2021 at 6:01 a.m. TECHNIQUE: Portable AP view of the chest FINDINGS: The mediastinum and cardiac silhouette are stable and within normal limits for portable technique. The lung gonsalves are clear without acute consolidation, effusion, or pneumothorax. Skeletal structures are intact. IMPRESSION: No acute cardiopulmonary process appreciated. <Electronically signed by cL Galindo > 03/10/21 [id number]
--- NOTE | 2021-03-10 08:17 | REP ---
INDICATION: pain COMPARISON: 12/16/2018 TECHNIQUE: AP and lateral right ankle FINDINGS: Patient is noted to be status post open reduction and fixation for medial and lateral malleolar fractures. Overlying soft tissue swelling and mild degenerative changes are noted. Correlation is required. No subcutaneous emphysema or foreign body. No obvious acute fracture or dislocation. IMPRESSION: 1. Prior fixation. 2. Moderate swelling is nonspecific and should be correlated clinically. <Electronically signed by Lc Galindo > 03/10/21 [id number]
--- NOTE | 2021-03-10 08:28 | ECGEPIP ---
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
[2021-03-10] MEDS ORDERED: cefTRIAXone SOD 2 GM in D5W MINI-BAG PLUS 50 ML IV ONE (08:45)
[2021-03-10] MEDS ORDERED: LIDOCAINE 2% 5ML JELLY UROJET TOP ONE (08:55)
--- NOTE | 2021-03-10 08:56 | IPNPDOC ---
Date Seen The patient was seen on 03/10/21. Progress Note Hospitalist Consultation: ER CHEMA Olivo requested admission for this patient with fulminant hepatic failure with decompensated acute on chronic ETOH liver cirrhosis MELD Score 38, Maddrey's Discriminant Function 121.4, renal failure, anemia, coagulopathy,and hypokalemia. Since there is NO SOLAR ENERGY CONSULTANT AND DESIGNER OR LINE PREP COOK available at [facility], with high risk of mortality, I recommend either having the Overnight Houseperson manage the patient, or transferring the patient to a higher level of care, preferably to [facility] in [place]. If the patient decides to be DNR/DNI, and understands that if she further decompensates despite maximal medical therapy and LACK OF GI SPECIALTY CARE, and insists on staying at [facility], I will admit her. VS, I&O, 24H, Fishbone Vital Signs/I&O Vital Signs Date Time Temp Pulse Resp B/P (MAP) Pulse Ox O2 Delivery O2 Flow Rate FiO2 03/10/21 07:51 16 03/10/21 06:33 109/59 (76) 03/10/21 06:30 144 100 03/10/21 04:25 99.3 Room Air Laboratory Data 24H LABS Laboratory Tests 2 03/10/21 05:24: Ammonia 44H 03/10/21 05:27: Neutrophils (%) (Auto) , Nucleated Red Blood Cells % (auto) 6.9H, Neutrophils 54, Band Neutrophils 17H, Lymphocytes (Manual) 11L, Monocytes (Manual) 16H, Eosinophils (Manual) 1, Metamyelocytes 1H, Nucleated Red Blood Cells 1H, Poikilocytosis 1+, Anisocytosis 1+, Macrocytosis 2+, Platelet Estimate DECREASED, Immature Platelet Fraction 8.6, Anion Gap 24H, Glomerular Filtration Rate 35.3L, Lactic Acid Level 17.1*H, Calcium Level 7.7L, Magnesium Level 1.6L, Total Bilirubin 25.7*H, Direct Bilirubin 21.0H, Aspartate Amino Transf (AST/SGOT) 72H, Alanine Aminotransferase (ALT/SGPT) 40, Alkaline Phosphatase 156H, Total Protein 5.1L, Albumin 1.4L, Albumin/Globulin Ratio 0.4L 03/10/21 06:15: Prothrombin Time 35.3H, Prothromb Time International Ratio 3.49, Activated Partial Thromboplast Time 65.4H, Coronavirus (COVID-19)(PCR) NEGATIVE, Influenza Type A (RT-PCR) NEGATIVE, Influenza Type B (RT-PCR) NEGATIVE, Respiratory Syncytial Virus (PCR) NEGATIVE 03/10/21 06:45: POC Troponin I (Misc) 0.00 03/10/21 07:44: Bedside Glucose (Misc Panel) 45L 03/10/21 08:46: Bedside Glucose (Misc Panel) 80 CBC/BMP Laboratory Tests 03/10/21 05:27 Microbiology Microbiology 03/10/21 Blood Culture, Received Pending 03/10/21 Blood Culture, Received Pending BENJY MOONEY MD Mar 10, 2021 08:56
[2021-03-10] MEDS ORDERED: MORPHINE 2 MG/ML 1ML VIAL (J2270) IV ONE (12:25)
[2021-03-10] MEDS ORDERED: HYDROMORPHONE HCL 0.5 MG/ 0.5 ML SYRINGE (J1170 PER 1) IV PRN ×2 (14:15)
--- NOTE | 2021-03-10 14:21 | CR.PDOC ---
General Date of Consultation: Mar 10, 2021 Referring Provider: JULIO COSME PA-C. Consultation REASON FOR CONSULTATION/CHIEF COMPLAINT: Assist in the medical management of the patient while in the ED. As time progressed, patient decompensated. Patient just had central line placed and now possibly intubated. HISTORY OF PRESENT ILLNESS: Mrs. Waller is a 40-year-old female with alcoholic cirrhosis who presents with right leg pain and found to have acute severe decompensated liver cirrhosis. Patient tells me that she has trouble speaking due to severe pain and her memory appears to be poor. Patient tells me that a few days ago, she has not been feeling well. She thought she had COVID, and went to get tested. She was COVID negative and was told she had a different virus. She was never told what that other virus was. She took 2 extra strength Tylenol for a fever at that time. She tells me that she does not know the strength or the exact date she took the Tylenol. Otherwise, she has been very thirsty and has been drinking a lot of water. Her oral mucosal looks dry. Around a similar time period, her right leg was in pain. The pain is a sharp and throbbing pain. It extends from the hip and goes all the way down her legs. Even with the lightest touch, it causes her pain. The morphine she took in the ED did help. US of right leg negative for DVT. XR right ankle demonstrated her right ankle ORIF with moderate swelling. She tells me she has been having chicken pox frequently in the past. The last time she had an outbreak of chicken pox was 12 years ago when she birthed her son. I do see old circular scars on her chest. On her right leg, she has a linear scar, but I do not see a rash or vesicles. While here, patient had a fever of 101.2. She has tachycardia with heart rate in the 140s and low blood pressure. Patient had a lactic acidosis of 17.1, bicarb of 15, and elevated anion gap of 24. Patient was given 2L of fluid (close to 30mL/kg) and Ceftriaxone. Patient was also given 2mg IV morphine x5. Patient also had hypokalemia with KCL 2.7 which she was also given 30mEQ q2h x2. Patient is in acute liver failure. Her jaundice is a bright highlighter yellow and her sclera is icteric. Total bilirubin is 25.7 (direct 21). AST mildly elevated at 72, ALT at 40. Alk phos is 146 and ammonia 44. Liver function is poor with albumin 1.4 (prior was around 2) and INR 3.49 (prior was 2). Patient also has renal failure with creatinine 1.72 (baseline 0.45). CT of the abd/pelvis demonstrates dilatated CBD. Also demonstrated upper abdominal perigastric and paraesophageal varices and hepatosplenomegaly with severe fatty infiltration of the liver. Patient has multi-organ failure including acute liver failure and acute kidney injury. We do not have GI or hepatology available. We had requested that patient be transferred, but patient became hypotensive and there were no beds available. Patient blood cultures returned positive for gram negative rods in all 4 cultures. Pulmonology/critical care was consulted by the ED and central line was place. Patient got progressively more short of breath and patient's acidosis worsened. Anticipating patient to be intubated. ALLERGIES: Please see below. HOME MEDICATIONS: Please see below. PAST MEDICAL HISTORY: 1. Alcoholic cirrhosis, diagnosed in August 2019 2. Thrombocytopenia 3. Coagulopathy related to cirrhosis 4. History of morbid obesity status post gastric bypass 5. Alcohol use disorder with history of alcoholic hepatitis 6. Chronic macrocytic anemia PAST SURGICAL HISTORY: 1. Cholecystectomy 2. Gastric sleeve surgery 3. Gastric sleeve reversal 4. Gastric bypass surgery 5. Ovarian cyst removal 6. Right ankle fracture status post ORIF in 2018 FAMILY HISTORY: Father: History of stroke Mother: No known medical history SOCIAL HISTORY: Tobacco use: Former ETOH: Sober (although she had a drink in November at a constitution party) Illicit drug use: Denies REVIEW OF SYSTEMS: CONSTITUTIONAL: Reports subjective fevers at home ENT: Reports dry throat and dry oral mucosa RESPIRATORY: Reports shortness of breath for a few days with a dry cough CARDIOVASCULAR: Denies chest pain. GASTROINTESTINAL: Reports intermittent abdominal pain. Denies diarrhea. Denies constipation GENITOURINARY: Denies dysuria. CUTANEOUS: Denies rashes. MUSCULOSKELETAL: Reports right leg sharp throbbing pain NEUROLOGICAL: Denies paresthesias. PSYCHOLOGICAL: Reports anxiety. PHYSICAL EXAMINATION: VITAL SIGNS: Please see below. GENERAL: Appears to be in mild distress and very jaundiced. She has trouble completing sentences as she gets out of breath HEENT: EOMI, sclera icteric NECK: Supple. RESPIRATORY: Lungs clear to auscultation bilaterally, no rales, wheeze or rhonchi. CARDIOVASCULAR: Tachycardic but regular. ABDOMEN: Surprisingly not tender, but tympanic and distended. CUTANEOUS: Jaundiced (highlighter yellow). NEUROLOGICAL: CN 3-12 grossly intact. Right leg pain elicited with light touch PSYCHOLOGICAL: Normal mood and affect LABORATORY DATA: Please see below. ASSESSMENT/PLAN: 1. Gram negative septic shock -Patient was given 30mL/kg of fluids and ceftriaxone -Patient progressively declined requiring central line and pressors -Pulmonology/critical care was contact by ED -Consider possibly ascending cholangitis -Antibiotics spectrum may need to be widened 2. Acute respiratory failure secondary to metabolic acidosis -Patient has a high anion gap metabolic acidosis with Bicarb 15 and gap of 24 -Patient rapidly breathing, but she is not able to keep up -Pending ABG results -Pulmonology/critical care contacted by ED. Anticipate intubation 3. Acute severe liver failure Madrey's discriminant function 128.3. Suggesting poor prognosis. I discussed this with the ER provider and he had spoken with [facility]. Due to the fever, they did not recommend steroids. MELD-NA score 38 (indicates a 65% 90 day mortality) Unclear etiology. Patient did report a singular use of acetaminophen recently. AST and ALT were not significantly elevated to suggest an acute hepatitis, but she may not be able to produce enough enzyme to show an elevation. Will order an acetaminophen level and hepatitis profile Patient will need to be seen by a GI specialist or trading analyst 4. Jaundiced/elevated bilirubin Total bilirubin severely elevated at 25.7 when she is normally around 14. Direct bilirubin elevated at 21 -Consider possible ascending cholangitis or obstruction -US liver ordered (since patient does not have gallbladder anymore. 5. Acute renal failure -Considering hepatorenal syndrome vs septic shock -Baseline creatinine 0.45 -Creatinine increased to 2.19 -Possibly causing the metabolic acidosis Patient is being admitted by the pulmonology/critical care service. Thank you for consulting us. We will sign off at this time. When patient is ready for downgrade, please do not hesitate to reach out to us. Vital Signs/I&O Vital Signs Date Time Temp Pulse Resp B/P (MAP) Pulse Ox O2 Delivery O2 Flow Rate FiO2 03/10/21 13:32 100.9 144 22 90/52 97 Room Air Laboratory Data Labs 24H Laboratory Tests 2 03/10/21 05:24: Ammonia 44H 03/10/21 05:27: Neutrophils (%) (Auto) , Nucleated Red Blood Cells % (auto) 6.9H, Neutrophils 54, Band Neutrophils 17H, Lymphocytes (Manual) 11L, Monocytes (Manual) 16H, Eosinophils (Manual) 1, Metamyelocytes 1H, Nucleated Red Blood Cells 1H, Poikilocytosis 1+, Anisocytosis 1+, Macrocytosis 2+, Platelet Estimate DECREASED, Immature Platelet Fraction 8.6, Anion Gap 24H, Glomerular Filtration Rate 35.3L, Lactic Acid Level 17.1*H, Calcium Level 7.7L, Magnesium Level 1.6L, Total Bilirubin 25.7*H, Direct Bilirubin 21.0H, Aspartate Amino Transf (AST/SGOT) 72H, Alanine Aminotransferase (ALT/SGPT) 40, Alkaline Phosphatase 156H, Total Protein 5.1L, Albumin 1.4L, Albumin/Globulin Ratio 0.4L 03/10/21 06:15: Prothrombin Time 35.3H, Prothromb Time International Ratio 3.49, Activated Partial Thromboplast Time 65.4H, Coronavirus (COVID-19)(PCR) NEGATIVE, Influenza Type A (RT-PCR) NEGATIVE, Influenza Type B (RT-PCR) NEGATIVE, Respiratory Syn cytial Virus (PCR) NEGATIVE 03/10/21 06:45: POC Troponin I (Misc) 0.00 03/10/21 07:44: Bedside Glucose (Misc Panel) 45L 03/10/21 08:46: Bedside Glucose (Misc Panel) 80 03/10/21 09:06: Urine Color REDH, Urine Appearance CLOUDYH, Urine pH 5.0, Urine Specific [place] 1.021, Urine Protein 2+H, Urine Glucose (UA) 1+H, Urine Ketones TRACEH, Urine Blood 1+H, Urine Nitrite NEGATIVE, Urine Bilirubin 2+H, Urine Urobilinogen 4.0H, Urine Leukocyte Esterase NEGATIVE, Urine WBC (Auto) 10H, Urine RBC (Auto) 3, Urine Hyaline Casts (Auto) 0, Urine Bacteria (Auto) 2+H, Urine Squamous Epithelial Cells 5, Urine Amorphous Sediment MODERATEH, Urine Mucus (Auto) SMALL, Urine Sperm (Auto) CBC/BMP Laboratory Tests 03/10/21 05:27 Microbiology Microbiology 12/15/21 Urine Culture, Received Pending 03/10/21 Blood Culture, Received Pending 03/10/21 Blood Culture, Received Pending Allergies Coded Allergies: prednisone (Verified Allergy, Intermediate, hives/flushing, 09/21/19) Home Medications Scheduled Acamprosate Calcium (Acamprosate Calcium) 333 Mg Tablet.dr, 666 MG PO TID, (Reported) Biotin (Biotin) 5 Mg Tablet, 5,000 MCG PO DAILY, (Reported) Cholecalciferol (Vitamin D3) (Vitamin D3) 1,000 Unit Tablet, 1,000 UNITS PO DAILY, (Reported) Folic Acid (Folic Acid) 1 Mg Tablet, 1 MG PO DAILY, (Reported) Furosemide (Furosemide) 20 Mg Tablet, 20 MG PO DAILY, (Reported) Lactulose (Lactulose) 10 Gm/15 Ml Solution, 15 ML PO DAILY, (Reported) Levonorgestrel (Mirena) 1 Each Iud, 20 MCG IU ASDIRECTED, (Reported) Pantoprazole Sodium (Pantoprazole Sodium) 40 Mg Tablet.dr, 40 MG PO DAILY, (Reported) Potassium Chloride (Potassium Chloride) 20 Meq Tablet.er, 20 MEQ PO DAILY, (Reported) Spironolactone (Spironolactone) 25 Mg Tablet, 25 MG PO DAILY, (Reported) Thiamine HCl (Vitamin B-1) 100 Mg Tablet, 100 MG PO DAILY, (Reported) ALKA LIMON DO Mar 10, 2021 14:21
[2021-03-10] MEDS ORDERED: NS 1,000 ML IV SCH ×2 (14:45→15:55)
[2021-03-10] MEDS ORDERED: NS 500 ML IV ONE (14:45)
[2021-03-10 15:12] LABS: BASO % 0.4 % (0.0-1.0); EOS # 0.1 10^3/uL (0.0-0.5); EOS % 0.5 % (0.0-3.0); LYMPH # 0.5 10^3/uL (1.5-5.0); MEAN CORPUSCULAR HEMOGLOBIN 43.7 pg (27.0-33.0); MONO # 1.1 10^3/uL (0.0-0.8); MONO % 11.5 % (2.0-8.0); NEUTROPHILS # 7.7 10^3/uL (1.5-8.5); NEUTROPHILS % 80.2 % (36.0-66.0); RED BLOOD COUNT 1.51 10^6/uL (4.00-5.40); WHITE BLOOD COUNT 9.6 10^3/uL (4.0-10.0)
[2021-03-10 15:15] LABS: MEAN CORPUSCULAR VOLUME 145.7 fl (80.0-96.0)
[2021-03-10 15:21] LABS: HEMOGLOBIN 6.6 g/dl (12.0-15.5); PLATELET COUNT, AUTOMATED 30 10^3/uL (150-450)
[2021-03-10] MEDS: NOREPINEPHRINE BITARTRATE 8 MG in D5W 492 ML IV SCH ×6 (15:30→23:00)
[2021-03-10 15:56] LABS: ALBUMIN 1.3 GM/DL (3.2-5.2); BILIRUBIN,TOTAL 22.8 MG/DL (0.2-1.0); CALCIUM LEVEL 7.3 MG/DL (8.5-10.1); CREATININE FOR GFR 2.19 MG/DL (0.55-1.30); ETHYL ALCOHOL (ETHANOL) 0.022 % (0.000-0.010); GLOMERULAR FILTRATION RATE 26.7 (>60); MAGNESIUM LEVEL 1.9 MG/DL (1.8-2.4); POTASSIUM SERUM 3.6 MEQ/L (3.5-5.1); TOTAL PROTEIN 4.4 GM/DL (6.4-8.2)
--- NOTE | 2021-03-10 16:06 | REP ---
INDICATION: dilated CBD with jaundice, looking for gallstone COMPARISON: CT dated 03/10/2021 TECHNIQUE: Real time sorenson scale ultrasound examination using curved array transducer. FINDINGS: Liver is enlarged and demonstrates diffuse increased echogenicity with poor through transmission suggesting fatty infiltration. Liver measures 22 cm in craniocaudal length. No focal hepatic lesions are identified. Patient is status post cholecystectomy. Compensatory dilatation to the common bile duct at 12 mm noted. Pancreas is incompletely evaluated due to interposed bowel gas but visualized portions appear normal. The right kidney is normal in reniform shape without hydronephrosis and measures 12.4 x 6.8 x 5.9 cm. Small amount of perihepatic ascites. IMPRESSION: 1. Hepatomegaly and hepatosteatosis. 2. Status post cholecystectomy with compensatory dilatation to the common bile duct measuring 12 mm. No obvious choledocholith identified by ultrasound. <Electronically signed by Lc Galindo > 03/10/21 [id number]
[2021-03-10 16:51] LABS: ABG BASE EXCESS -24.1 (-2.0-2.0); ABG HCO3 5.3 MEQ/L (22.0-26.0); ABG O2 SATURATION 99.2 % (95.0-99.0); ABG PARTIAL PRESSURE CO2 22.1 mmHg (35.0-45.0); ABG STANDARD HCO3 6.5 MEQ/L (22.0-26.0)
[2021-03-10 16:55] LABS: ABG pH (ARTERIAL) 6.999 UNITS (7.350-7.450)
[2021-03-10] MEDS ORDERED: ETOMIDATE INJ 20MG/10ML VIAL IV STA (17:21)
[2021-03-10] MEDS ORDERED: NOREPINEPHRINE BITARTRATE 8 MG in D5W 492 ML IV SCH (17:25)
[2021-03-10] MEDS ORDERED: PIPERACILLIN/TAZOBACTAM SOD 2.25 GM in D5W MINI-BAG PLUS 50 ML IV SCH (17:25)
[2021-03-10] MEDS ORDERED: ROCURONIUM BROMIDE 50 MG/5 ML VIAL IV ONE (17:25)
--- NOTE | 2021-03-10 17:42 | REP ---
INDICATION: central line placed COMPARISON: 03/10/2021 at 7:57 a.m. TECHNIQUE: Portable AP view of the chest FINDINGS: Endotracheal tube 3 cm above the rashaun. Nasogastric tube courses below left hemidiaphragm. Right IJ line with tip in the SVC. Mediastinum and cardiac silhouette are normal. Subtle bilateral perihilar opacities (left greater than right) are suspected. No obvious focal consolidation or effusion. No pneumothorax. IMPRESSION: 1. Lines and tubes in satisfactory stable position. 2. Questionable perihilar opacities. <Electronically signed by Lc Galindo > 03/10/21 [id number]
--- NOTE | 2021-03-10 17:44 | REP ---
INDICATION: S/P INTUBATION COMPARISON: 03/10/2021 at 7:57 a.m. TECHNIQUE: Portable AP view of the chest FINDINGS: Right IJ line with tip in the SVC. Mediastinum and cardiac silhouette are normal. Diffuse increased interstitial markings are nonspecific. No discrete focal consolidation. No effusion. No pneumothorax. Skeletal structures intact. IMPRESSION: Right IJ line with tip in the SVC. Diffuse increased interstitial markings are nonspecific. <Electronically signed by Lc Galindo > 03/10/21 [id number]
[2021-03-10] MEDS ORDERED: CEFOTAXIME IV SCH (18:05)
[2021-03-10] MEDS ORDERED: D5W/0.45% SODIUM CHLORIDE 1,000 ML IV SCH (18:35)
[2021-03-10 18:54] LABS: ABG BASE EXCESS -23.6 (-2.0-2.0); ABG HCO3 6.4 MEQ/L (22.0-26.0); ABG O2 SATURATION 99.7 % (95.0-99.0); ABG PARTIAL PRESSURE CO2 27.8 mmHg (35.0-45.0); ABG PARTIAL PRESSURE O2 267.1 mmHg (75.0-100.0); ABG STANDARD HCO3 6.9 MEQ/L (22.0-26.0); ABG TOTAL CO2 7.2 MEQ/L (22.0-29.0)
[2021-03-10 18:55] LABS: ABG pH (ARTERIAL) 6.977 UNITS (7.350-7.450)
[2021-03-10] MEDS ORDERED: MIDAZOLAM HCL 100 MG in D5W 80 ML IV SCH (19:00)
[2021-03-10] MEDS ORDERED: VASOPRESSIN INJ 20 UNITS in NS 499 ML IV SCH (19:00)
[2021-03-10] MEDS ORDERED: VASOPRESSIN INJ 20 UNITS in NS 500 ML IV SCH (19:00)
[2021-03-10 19:12] LABS: ACETAMINOPHEN LEVEL < 2.0 UG/ML (10.0-30.0); FERRITIN 686 NG/ML (8-252); HEPATITIS B CORE ANTIBODY IGM NEGATIVE (NEGATIVE); HEPATITIS B SURFACE ANTIGEN NEGATIVE (NEGATIVE); HEPATITIS C VIRUS ABY INDEX 0.1 INDEX (<0.8); IRON (FE) 21 UG/DL (50-170); PERCENT SATURATION 36.8 % (13.2-45.0); TOTAL IRON BINDING CAPACITY 57 UG/DL (250-450); VITAMIN B12 LEVEL > 2000 PG/ML (247-911)
[2021-03-10] MEDS: PIPERACILLIN/TAZOBACTAM SOD 2.25 GM in D5W MINI-BAG PLUS 50 ML IV SCH (19:16)
[2021-03-10] MEDS: VASOPRESSIN INJ 20 UNITS in NS 499 ML IV SCH (19:18)
--- NOTE | 2021-03-10 19:35 | CCN ---
CRITICAL CARE NOTE Critical care time is one hour and 33 minutes. This excludes all procedures. DATE: 03/10/2021 SUBJECTIVE: I was asked to see Renetta on the Emergency Room for a central line due to hypotension and septic shock. On my arrival she was complaining of that she was unable to breathe. She appeared tachypneic and had jaundice. She has known end-stage liver disease from alcoholic cirrhosis. She is not a candidate for transplant. Blood cultures had already returned gram negative rods. The patient received Ceftriaxone. I had ordered Cefotaxime for suspicion of SBP, however this is not available and therefore I switched antibiotic course to Zosyn. We will continue to monitor for adequate coverage. The patient is in septic shock with severe liver failure and an arterial blood gas that shows a pH of 6.99, a PcO2 of 22, PaO2 of 165. The patient was then intubated. The patient has been having hypoglycemia and receiving glucose in the Emergency Room. Initially the patient was consulted by the Hospitalist Service. Their concern was that she was not able to get to a liver center. And although she would be a candidate for referral to a liver center, unfortunately there are no beds available anywhere. And she started to decompensate and therefore I was called. OBJECTIVE: PHYSICAL EXAMINATION: VITAL SIGNS: Temperature is 98.6, pulse is 133, respiratory rate is 24, blood pressure is 82/49 on 9 mics of Levophed and oxygen saturation is 97% on 0.90 FiO2. GENERAL APPEARANCE: The patient is jaundiced, tachypneic, in respiratory distress. HEENT: Sclerae are icteric. Pupils are dilated but reactive. Mucous membranes are dry. Tongue is midline. NECK: Supple. No jugular deviation or mass. There is elevated JVP. PULMONARY: Clear to auscultation without rales, rhonchi or wheezes. No dullness to percussion. No accessory muscle use. CARDIAC: Distant S1, S2 without audible murmurs, rubs or gallops. There is elevated JVP and significant systemic edema, right greater than left with dense edema in the right lower extremity. MUSCULOSKELETAL: Some muscle wasting. No evidence of unilateral weakness or tremor. LABORATORY EVALUATION: Alcohol level was elevated. Respiratory virus panel was unremarkable. The patient had trace urine ketones, 2+ protein and 1+ blood. Most recent chemistry panel shows hyponatremia 134, potassium 3.6, chloride 98, bicarbonate is down to 8 with an anion gap of 28. Creatinine is elevated at 2.16. Fasting glucose of 49. Magnesium is 1.9, total bilirubin is 22.8, AST is 108, albumin is 1.3. White blood cell count is 9.6, hemoglobin is down to 6.6, platelet count of 30. IMAGING: The patient had multiple films while in the Emergency Room. Abdominal CT shows a small hiatal hernia, marked hepatosplenomegaly with severe fatty infiltration of the liver with perigastric and periesophageal varices. Apparently status post gastric bypass and cholecystectomy with mildly dilated common bile duct. Initial chest x-ray shows elevated right hemidiaphragm. A vascular ultrasound was performed of the right lower extremities. There is no evidence of deep vein thrombosis. Liver ultrasound was also performed. It was hepatomegaly, hepatosteatosis. Chest x-ray shows after intubation appropriate endotracheal tube in place along with IJ placement without significant infiltrate. IMPRESSION AND PLAN: 1. Septic shock with positive blood cultures, gram negative rods. Place the patient on Zosyn as Cefotaxime is not available. 2. Severe lactic acidosis with end-stage liver disease. I do not believe the patient will survive this hospitalization due to the severity of the liver disease. She is not a candidate for transplant. The treatment even though she wants "everything done" is bordering on futility. We will check ammonia level in an attempt to resuscitate as much as possible. 3. Acute renal failure will likely progress over time. May need dialysis if she survives. 4. Severe anemia with hemoglobin of 6.6 - The patient has esophageal varices. We do not have GI business education instructor. There is no accepting GI transfers. At this point in time, again, likely futile. INR was elevated at 3.49, platelets at 30. At this point in time would not replace platelets and continue to monitor for further signs of blood loss. 5. Hypoglycemia we will add D5 as the patient continues to be hypoglycemic likely from liver failure. 6. V-tach - The patient had a bout of V-tach on presentation, likely from the severity of her acidosis. 7. DVT prophylaxis - The patient is auto anticoagulated with an elevated INR she will have TEDS and [place]. 8. GI prophylaxis on Protonix. PROGNOSIS: Overall, I expect the patient to . I believe the therapy we are providing now is bordering on futility. We will need Patient and Family Services to assist with identifying family members.
[2021-03-10] MEDS ORDERED: ROCURONIUM BROMIDE 50 MG/5 ML VIAL ONE (19:41)
[2021-03-10] MEDS ORDERED: ETOMIDATE INJ 20MG/10ML VIAL ONE (19:41)
[2021-03-10] MEDS ORDERED: propofoL 200 MG/20 ML VIAL ONE (19:41)
[2021-03-10] MEDS ORDERED: COMBIVENT RESPIMAT 100-20MCG INHALER 4GM INH SCH (20:00)
[2021-03-10] MEDS ORDERED: ALBUTEROL SULFATE 2.5 MG/0.5 ML INH NEB SOLN INH SCH (20:00)
[2021-03-10] MEDS ORDERED: IPRATROPIUM 0.5MG/ALBUTEROL 2.5MG INH SOL UD 3ML (DUONEB) NEB SCH (20:00)
[2021-03-10] MEDS ORDERED: LACTULOSE 20 GM/30 ML SYRUP UD PO SCH (21:00)
[2021-03-10] MEDS ORDERED: CHLORHEXIDINE GLUCONATE 0.12 % 15ML UDC (PERIDEX ORAL RINSE) MT SCH (21:00)
[2021-03-10 22:45] LABS: HEMATOCRIT 27.6 % (36.0-47.0); HEMOGLOBIN 8.4 g/dl (12.0-15.5)
[2021-03-11] VITALS (24 sets, daily range): BP systolic 78–141; BP diastolic 34–89
[2021-03-11] MEDS: NOREPINEPHRINE BITARTRATE 8 MG in D5W 492 ML IV SCH ×2 (00:31→03:33)
[2021-03-11] MEDS ORDERED: EPINEPHrine HCL INJ 1 MG in D5W 240 ML IV STA (00:45)
[2021-03-11] MEDS: VASOPRESSIN INJ 20 UNITS in NS 499 ML IV SCH (03:02)
[2021-03-11] MEDS: PIPERACILLIN/TAZOBACTAM SOD 2.25 GM in D5W MINI-BAG PLUS 50 ML IV SCH (03:15)
[2021-03-11] MEDS: EPINEPHrine HCL INJ 1 MG in D5W 240 ML IV SCH ×2 (03:46→04:33)
[2021-03-11 03:48] LABS: VENOUS BASE EXCESS -27.7 (-2.0-2.0); VENOUS HCO3 4.9 MEQ/L (23.0-27.0); VENOUS O2 SATURATION 95.5 % (60.0-80.0); VENOUS PARTIAL PRESSURE CO2 30.3 mmHg (38.0-50.0); VENOUS PARTIAL PRESSURE O2 105.2 mmHg (30.0-50.0); VENOUS PH 6.824 UNITS (7.330-7.430); VENOUS STANDARD HCO3 4.6 MEQ/L; VENOUS TOTAL CO2 5.8 MEQ/L (24.0-28.0)
[2021-03-11 04:13] LABS: HEMATOCRIT 24.3 % (36.0-47.0); HEMOGLOBIN 7.4 g/dl (12.0-15.5); MEAN CORPUSCULAR HEMOGLOBIN 39.8 pg (27.0-33.0); MEAN CORPUSCULAR HGB CONC 30.5 g/dl (32.0-36.5); RED BLOOD COUNT 1.86 10^6/uL (4.00-5.40); WHITE BLOOD COUNT 20.9 10^3/uL (4.0-10.0)
[2021-03-11 04:30] LABS: MEAN CORPUSCULAR VOLUME 130.6 fl (80.0-96.0); PLATELET COUNT, AUTOMATED 10 10^3/uL (150-450)
[2021-03-11 04:43] LABS: CREATININE FOR GFR 3.18 MG/DL (0.55-1.30); GLOMERULAR FILTRATION RATE 17.4 (>60); PHOSPHORUS LEVEL 6.7 MG/DL (2.5-4.9); POTASSIUM SERUM 5.4 MEQ/L (3.5-5.1)
--- NOTE | 2021-03-11 04:47 | IPNPDOC ---
Text Note Date of Service The patient was seen on 03/11/21. NOTE I was asked by Shannon Patient's nurse to have a CODE STATUS discussion with David's dad Mario who had come overnight to visit her in the ICU. Mario tells me that him and David are very close and him to make medical decisions on her behalf. He tells me she has an adult son who she is not close with it all and 2 other children or my nurse. He is not close to her mother and does not kn ow what their relationship was like. Mario tells me that the best of his knowledge David's wishes at this point would be to not resuscitate. Currently she is intubated and on IV antibiotics as of right now he believes her wishes are for those to continue for the time being. I asked him to try to reach out her mother if he is able to do so to involve her in the decision-making pr ocess as well. A MOLST form was completed and is in the chart outlining DO NOT RESUSCITATE. KRYSTAL VILLATORO MD Mar 11, 2021 04:47
[2021-03-11] MEDS ORDERED: MORPHINE 2 MG/ML 1ML VIAL (J2270) IV PRN (05:40)
[2021-03-11] MEDS ORDERED: PANTOPRAZOLE 40MG VIAL (C9113 PER 1) IV SCH (09:00)
--- NOTE | 2021-03-11 09:10 | RO ---
OPERATIVE NOTE DATE OF OPERATION: 03/10/2021 PREOPERATIVE DIAGNOSIS: Hypotension POSTOPERATIVE DIAGNOSIS: Hypotension PROCEDURE: Right triple lumen venous catheter SURGEON: Miguel Neville DO Patient gave verbal consent, wants everything done in order to attempt to save her life. She understood the risks and benefits of the procedure. ANESTHESIA: 1% lidocaine used at 5 mL. DESCRIPTION OF PROCEDURE: After informed consent was reviewed with the patient, she was prepped and draped in a sterile manner. Chlorhexidine full sterile barrier precautions were used. Timeout was performed with two-patient identifiers, identifying the correct site and correct procedure. The right internal jugular (IJ) was then identified under ultrasound and the Raulerson syringe was inserted into the internal jugular (IJ). On the first pass, there was return of venous blood flow. Wire was fed through the needle and the needle was removed. Jv in the skin was made and dilator was used and removed. The triple-lumen catheter was then placed via modified Seldinger technique. Wire was removed. All three ports returned venous blood flow and flushed easily. This was sutured in at 15 cm. A sterile impregnated dressing was placed over the site. Post-procedure chest x-ray shows the tip of the catheter in the superior vena cava (SVC). There were no observed complications. RICH
--- NOTE | 2021-03-11 09:10 | RO ---
OPERATIVE NOTE DATE OF OPERATION: 03/10/2021 PREOPERATIVE DIAGNOSIS: Respiratory failure, severe metabolic acidosis. POSTPROCEDURE DIAGNOSIS: Respiratory failure, severe metabolic acidosis. PROCEDURE: Endotracheal tube intubation. SURGEON: Miguel Neville DO FEATHER DRYING MACHINE OPERATOR: Jake Olivo PA-C ANESTHESIA: Rapid sequence intubation used with 30 of Etomidate and 50 of vecuronium. DESCRIPTION OF PROCEDURE: The patient had a severe respiratory distress. Arterial blood gas came back with a pH of 6.9. Patient stating she was unable to breathe on her own and starting to have hypoxia. It was determined that the patient required intubation. The patient has already given consent for "everything to save her life." The patient was placed in a supine position. She was preoxygenated to 100%. Rapid sequence intubation was then performed with Etomidate and vecuronium. A GlideScope Mac blade 4 was used to view the posterior pharynx. The area was slightly floppy with a grade 2 view. 8.0 endotracheal tube was then advanced through the vocal cords and stylus was removed. Placement was confirmed via CO2 monitoring, auscultation and chest x-ray. There were no observed complications. Endotracheal tube was placed at 23 at the lip.
--- NOTE | 2021-03-11 13:26 | DSES ---
DISCHARGE SUMMARY DATE OF ADMISSION: 03/10/2021 DATE OF DISCHARGE: 03/11/2021 ADMISSION DIAGNOSIS: 1. Septic shock. 2. Liver failure, acute on chronic. DESCRIPTION OF HOSPITALIZATION: The patient presented to the emergency room yesterday morning. She was found to have evidence of liver failure and possible sepsis, was started on antibiotics appropriately and the hospitalist team was consulted. They had called GI for an outside consultation as there was no active GI bindery leadperson and it was recommended that she be transferred to a center that has liver transplant specialist. The patient is an alcoholic, active signs of alcoholism with a positive serologic alcohol level. She was not a likely candidate for transplant. Despite this, the emergency room made all efforts to try to get her transferred to a center that had transplant capacity. There were no open beds under the current state of affairs; with the amount of active COVID cases, there were no beds at any hospitals that could be found. I was initially called by her physician, who stated she did not need any critical management. She wanted to run the case by me, I was in the middle of intubating a patient and said I would be available for consulting if she required critical care. Eventually, the emergency room physician did contact me as the patient had developed hypotension. I explained to the physician that I was not aware that she had any critical illness. He stated that she was now critically ill and went to the emergency room and attended the patient. On my arrival, the patient had respiratory distress and was hypotensive. I placed a central line, intubated the patient and admitted her to the hospital. The patient had such severe metabolic disturbance and liver failure that the majority of her care was felt to be futile. However, the patient had requested that everything be done in attempt to save her life. She was on full resuscitation with three pressors, epinephrine, vasopressin and Levophed over our usual maximum doses. She had received IV fluids. She was receiving antibiotics. Unfortunately, she had a severe lactic acidosis that could not clear because of her liver failure. Her father presented to the bedside and indicated to me that she would not want this kind of life support in face of the futility. Initially, he had a conversation with Dr. Cortez. Dr. Cortez had made the patient DO NOT RESUSCITATE (DNR) based on the expressed wishes and the conversation with the father who appears to be the only invested family member. I had a second conversation with the father based on the father's request, as he was requesting to withdraw all agents. Because of the futility of the case, the best interest of the patient and the conveyed wishes from the father, the patient was taken off vasopressor therapy and was placed comfort measures and shortly after. DISCHARGE DIAGNOSES: 1. Septic shock with gram-negative organism, likely SBP 2. Acute on chronic liver failure for alcoholic cirrhosis. 3. Respiratory failure secondary to severe metabolic acidosis 4. Acute renal failure. 5. Severe anemia with history of varices. 6. Hypoglycemia 7. Ventricular tachycardia. MTDD
== END 2021-03-11 07:42 | disposition expired | DRG 720 ==
LOC: M ED 04:15 → M ED INP 17:21 → M PCU 18:25
PROVIDERS: ADMIT Internal Medicine Pulmonary Disease; ATTEND Internal Medicine Pulmonary Disease
PROC: 0BH17EZ Insertion of Endotracheal Airway into Trachea, Via Natural or Artificial Opening (ICD-10-PCS; principal; 2021-03-10)
PROC: 02HV33Z Insertion of Infusion Device into Superior Vena Cava, Percutaneous Approach (ICD-10-PCS; 2021-03-10)
PROC: 5A1935Z Respiratory Ventilation, Less than 24 Consecutive Hours (ICD-10-PCS; 2021-03-10)
PROC: 30233N1 Transfusion of Nonautologous Red Blood Cells into Peripheral Vein, Percutaneous Approach (ICD-10-PCS; 2021-03-10)
PROC: 30233J1 Transfusion of Nonautologous Serum Albumin into Peripheral Vein, Percutaneous Approach (ICD-10-PCS; 2021-03-10)
DX: A41.9 Sepsis, unspecified organism (principal); J96.00 Acute respiratory failure, unspecified whether with hypoxia or hypercapnia; K72.00 Acute and subacute hepatic failure without coma; R65.21 Severe sepsis with septic shock; I47.2 Ventricular tachycardia; E87.2 Acidosis; I85.10 Secondary esophageal varices without bleeding; N17.9 Acute kidney failure, unspecified; D69.6 Thrombocytopenia, unspecified; D68.4 Acquired coagulation factor deficiency; K70.30 Alcoholic cirrhosis of liver without ascites; Z51.5 Encounter for palliative care; Z66 Do not resuscitate; E87.6 Hypokalemia; D53.9 Nutritional anemia, unspecified; Z20.822 Contact with and (suspected) exposure to COVID-19; Z88.8 Allergy status to other drugs, medicaments and biological substances; Z79.899 Other long term (current) drug therapy; E16.2 Hypoglycemia, unspecified; Z98.84 Bariatric surgery status